=== PATIENT | female | born 1990 | race Caucasian/White ===

== ENCOUNTER → 2022-05-05 | Outpatient (CLI) | payer OTHER, BC, SELFPAY ==
[2022-05-05 22:30] LABS: Absolute Lymphocyte Count 2.04 X10^3/uL (0.83-4.51); Absolute Neutrophil Count 3.1 X10^3/uL (2.0-7.7); Basophil# 0.04 X10^3/uL; Basophil% 0.7 % (0-1); Eosinophil# 0.13 X10^3/uL; Eosinophils% 2.3 % (0-5); Hematocrit 43.2 % (37-47); Lymphocyte # 2.04 X10^3/ul (0.83-4.51); Lymphocyte % 35.7 % (19-41); Mean Corp Hgb Conc 32.4 g/dL (32-36); Mean Corpuscular Hgb 28.3 pg (27.0-32.0); Mean Corpuscular Volume 87.4 fL (81-99); Mean Platelet Vol. 10.2 fl (6.2-12.0); Monocyte# 0.43 X10^3/uL; Monocyte% 7.5 % (0-10); NRBC Flagged by Analyzer 0 % (0-5); Neutrophil # 3.05 X10^3/uL (2.7-7.7); Neutrophil % 53.4 % (47-70); Platelet Count 353 K/mm3 (150-450); RBC Distribution Width SD 41.1 fl (35.1-43.9); Red Blood Count 4.94 M/mm3 (4.2-5.4); White Blood Count 5.7 K/mm3 (4.4-11.0)
[2022-05-05 22:48] LABS: ALB/GLOB Ratio 1.1 RATIO (0.9-2.4); AST(SGOT) 15 U/L (15-37); Alanine Aminotransfer ALT/SGPT 32 U/L (13-56); Albumin, Serum 3.8 g/dL (3.2-5.0); Alkaline Phosphatase 112 U/L (45-117); Anion Gap 9 (5-15); BUN 11 mg/dL (7-18); BUN/Creat Ratio 18.2 RATIO (10-20); Calcium,Total 9.5 mg/dL (8.5-10.1); Chloride 105 mmol/L (98-107); Cholesterol 190 mg/dL (200); Creatinine, Serum 0.61 mg/dL (0.55-1.02); EST Glomerular Filtration Rate 120 mL/min (>60); Est Glom Filt Rate - Afr Amer 146 mL/min (>60); Globulin 3.6 g/dL (2.2-4.2); Glucose 84 mg/dL (74-106); High Density Lipoprotein 60 mg/dL; Potassium 4.1 mmol/L (3.5-5.1); Protein, Total 7.4 g/dL (6.4-8.2); Sodium Level 141 mmol/L (136-145); Triglycerides 97 mg/dL; Very Low Density Lipoprotein 19 mg/dL (5-40)
== END | disposition home or self-care (01) ==
PROVIDERS: Visit Provider Nurse Practitioner
DX: Z00.00 Encounter for general adult medical examination without abnormal findings (principal)
CPT/HCPCS: 80053; 80061; 85025

== ENCOUNTER → 2023-07-11 | Outpatient (CLI) | payer BC, SELFPAY ==
[2023-07-11 21:23] LABS: Absolute Lymphocyte Count 2.17 X10^3/uL (0.83-4.51); Absolute Neutrophil Count 3.3 X10^3/uL (2.0-7.7); Basophil# 0.03 X10^3/uL; Basophil% 0.5 % (0-1); Eosinophil# 0.12 X10^3/uL; Hematocrit 40.3 % (37-47); Hemoglobin 13.2 g/dL (12.0-15.0); Lymphocyte # 2.17 X10^3/ul (0.83-4.51); Lymphocyte % 35.9 % (19-41); Mean Corp Hgb Conc 32.8 g/dL (32-36); Mean Corpuscular Volume 88.6 fL (81-99); Mean Platelet Vol. 10.1 fl (6.2-12.0); Monocyte# 0.42 X10^3/uL; Monocyte% 6.9 % (0-10); NRBC Flagged by Analyzer 0 % (0-5); Neutrophil % 54.5 % (47-70); Platelet Count 378 K/mm3 (150-450); RBC Distribution Width SD 42.2 fl (35.1-43.9); Red Blood Count 4.55 M/mm3 (4.2-5.4); White Blood Count 6.1 K/mm3 (4.4-11.0)
[2023-07-11 21:37] LABS: Vitamin B12 443 pg/mL (211-911)
[2023-07-11 22:14] LABS: ALB/GLOB Ratio 1.1 RATIO (0.9-2.4); AST(SGOT) 25 U/L (15-37); Alanine Aminotransfer ALT/SGPT 39 U/L (13-56); Albumin, Serum 3.9 g/dL (3.2-5.0); Alkaline Phosphatase 89 U/L (45-117); Anion Gap 7 (5-15); BUN 11 mg/dL (7-18); BUN/Creat Ratio 17.7 RATIO (10-20); Calcium,Total 9.2 mg/dL (8.5-10.1); Chloride 105 mmol/L (98-107); Cholesterol 278 mg/dL (200); Creatinine, Serum 0.62 mg/dL (0.55-1.02); EST Glomerular Filtration Rate 116 mL/min (>60); Est Glom Filt Rate - Afr Amer 140 mL/min (>60); Ferritin 59 ng/mL (8-252); Globulin 3.6 g/dL (2.2-4.2); Glucose 94 mg/dL (74-106); High Density Lipoprotein 53 mg/dL; Iron Binding Capacity,Total 345 ug/dL (250-450); Potassium 3.4 mmol/L (3.5-5.1); Protein, Total 7.5 g/dL (6.4-8.2); Sodium Level 138 mmol/L (136-145); Thyroid Stim Hormone (TSH) 1.96 uIU/mL (0.358-3.74); Triglycerides 249 mg/dL; Very Low Density Lipoprotein 50 mg/dL (5-40)
[2023-07-14 13:08] LABS: Anti-Centromere B Ab <0.2 AI (0.0-0.9); Anti-Chromatin <0.2 AI (0.0-0.9); Anti-Jo <0.2 AI (0.0-0.9); Anti-Scleroderma-70 AB <0.2 AI (0.0-0.9); Anti-dsDNA Ab 5 IU/mL (0-9); RNP Ab 0.2 AI (0.0-0.9); SJOGREN'S Anti-SS-A test < 0.2 AI (0.0-0.9); SJOGREN'S Anti-SS-B test < 0.2 AI (0.0-0.9); Smith Ab <0.2 AI (0.0-0.9); Vitamin D 1,25-Dihydroxy 70.1 pg/mL (24.8-81.5)
[2023-08-04 14:10] LABS: VITAMIN B6 15.6 ug/L (3.4-65.2)
== END | disposition home or self-care (01) ==
PROVIDERS: PCP Nurse Practitioner; Visit Provider Nurse Practitioner
DX: R11.0 Nausea (principal); R42 Dizziness and giddiness; R41.89 Other symptoms and signs involving cognitive functions and awareness; L74.9 Eccrine sweat disorder, unspecified; R51.9 Headache, unspecified; L30.9 Dermatitis, unspecified; R19.7 Diarrhea, unspecified; L50.9 Urticaria, unspecified; O24.419 Gestational diabetes mellitus in pregnancy, unspecified control; Z3A.00 Weeks of gestation of pregnancy not specified
CPT/HCPCS: 80053; 80061; 81291; 82607; 82652; 82728; 82746; 83550; 84207; 84443; 85025; 86225; 86235

== ENCOUNTER → 2023-11-23 | Outpatient (CLI) | payer BC, SELFPAY ==
[2023-11-23 20:47] LABS: ALB/GLOB Ratio 1.1 RATIO (0.9-2.4); AST(SGOT) 20 U/L (15-37); Alanine Aminotransfer ALT/SGPT 34 U/L (13-56); Albumin, Serum 3.8 g/dL (3.2-5.0); Alkaline Phosphatase 89 U/L (45-117); Anion Gap 6 (5-15); BUN 9 mg/dL (7-18); BUN/Creat Ratio 13.2 RATIO (10-20); Calcium,Total 9.5 mg/dL (8.5-10.1); Chloride 104 mmol/L (98-107); Creatinine, Serum 0.68 mg/dL (0.55-1.02); EST Glomerular Filtration Rate 104 mL/min (>60); Est Glom Filt Rate - Afr Amer 126 mL/min (>60); Globulin 3.6 g/dL (2.2-4.2); Glucose 96 mg/dL (74-106); Potassium 3.5 mmol/L (3.5-5.1); Protein, Total 7.4 g/dL (6.4-8.2); Sodium Level 139 mmol/L (136-145)
== END | disposition home or self-care (01) ==
PROVIDERS: PCP Nurse Practitioner; Visit Provider Nurse Practitioner
DX: N20.0 Calculus of kidney (principal)
CPT/HCPCS: 80053

== ENCOUNTER → 2024-05-20 | Outpatient (CLI) | payer BC, SELFPAY | END | disposition home or self-care (01) | PROVIDERS: PCP Nurse Practitioner; Referring Provider Nurse Practitioner; Visit Provider Nurse Practitioner | DX: N30.90 Cystitis, unspecified without hematuria (principal) | CPT/HCPCS: 87077; 87086; 87088; 87186 ==

== ENCOUNTER → 2024-12-16 | Outpatient (CLI) | payer BC, SELFPAY ==
--- OUTSIDE RECORDS SUMMARY | 2024-12-16 22:22 | XMS RPT_ITS | CCD ---
Author Organization [facility] CliniSyms Care Team Providers Care Porcelain Finish Sprayer Name Role Phone Feroz Armstrong Attending Unavailable PROVIDER, UNKNOWN Referring Unavailable Ginette Amberly Primary Care Unavailable Narcisa Pierre Unavailable Unavailable CARLOS ALBERTO PACKER MD Attending Unavailable MARTY, ZANE Primary Care Unavailable OBED VILA MD Attending Unavailab le MARTY, ZANE Primary Care Unavailable MARTY, ZANE Consulting Unavailable CARLOS ALBERTO PACKER MD Attending Unavailable MARTY, ZANE Primary Care Unavailable MARTY, ZANE Primary Care Unavailable MARTY, ZANE Primary Care Unavailable CARLOS ALBERTO PACKER MD Attending Unavailable MARTY, ZANE Primary Care Unavailable CARLOS ALBERTO PACKER MD Attending Unavailable MARTY, ZANE Primary Care Unavailable OBED VILA MD Attending Unavailab le MARTY, ZANE Primary Care Unavailable MARTY, ZANE Primary Care Unavailable MARTY, ZANE Primary Care Unavailable MARTY, ZANE Primary Care Unavailable Unavailable Primary Care Provider Unavailelvis Sands MD, Demetrius Nelson Primary Care Provider [phone] Frederic GLOVE PARTS INSPECTOR.UM RN, Jenny L Unavailable MELY VIGIL Attending Unavailable BERGERON, JENNY L Referring Unavailable Bergeron ENVIRONMENTAL AUDITOR, Jenny Unavailable Unallocated MD, Noms Provider Primary Care Provi janae Bergeron ENVIRONMENTAL AUDITOR, Jenny Primary Care Unavailable Bergeron ENVIRONMENTAL AUDITOR, Jenny Referring Unavailable Bergeron ENVIRONMENTAL AUDITOR, Jenny Attending Unavailable Bergeron ENVIRONMENTAL AUDITOR, Jenny Primary Care Unavailable Bergeron ENVIRONMENTAL AUDITOR, Jenny Attending Unavailable Bergeron ENVIRONMENTAL AUDITOR, Jenny Attending Unavailable Bergeron ENVIRONMENTAL AUDITOR, Jenny Primary Care Unavailable FRIDA HOPSON Attending Unavailable FRIDA HOPSON Attending Unavailable FRIDA HOPSON Referring Unavailable JERZY HAHN Attending Unavailable JERZY HAHN Referring Unavailable WEMILTONT, DARLENE S Attending Unavailable WEYGANDT, DARLENE S Attending Unavailable FRIDA HOPSON Attending Unavailable FRIDA HOPSON Referring Unavailable WEYGANDT, DARLENE S Attending Unavailable JERZY HAHN Referring Unavailable Demetrius Sands MD Primary Care Provider DOLLY BRAVO, REG Attending Unavailabl e BERGERON, JENNY Primary Care Unavailable BERGERON, JENNY Primary Care Unavailable BERGERON, JENNY Primary Care Unavailable DOLLY BRAVO, REG Attending Unavailabl e BERGERON, JENNY Primary Care Unavailable BERGERON, JENNY Primary Care Unavailable BERGERON, JENNY Primary Care Unavailable BERGERON, JENNY Primary Care Unavailable BERGERON, JENNY Primary Care Unavailable BERGERON, JOSE Primary Care Unavailable CARLOS ALBERTO PACKER MD Attending Unavailable WEMILTONT, DARLENE S Attending Unavailable DEMETRIUS SANDS Primary Care Unavailable WEYGANDT, DARLENE S Referring Unavailable WEMILTONT, DARLENE S Attending Unavailable DEMETRIUS SANDS Primary Care Unavailable Allergies Allergy Classification Reported Allergen(s) Allergy Type Date of Onset Reaction(s) Facility (4 sources) Latex; Translations: [LATEX] Propensity to adverse reactions to drug 2 Rash [facility] (1 source) Propensity to adverse reactions to drug 8 [facility] (1 source) Latex Drug allergy (disorder) 4 [facility] Repository (1 source) Wound Dressing Adhesive Drug Allergy 5 [facility] (1 source) ALLERGIES NOT ON FILE; Translations: [ALLERGIES NOT ON FILE] Propensity to adverse reactions (disorder) [facility] 3 Repository Medications Current Medications Medication Drug Class(es) Dates Sig (Normalized) Sig (Original) acetaminophen 325 mg / oxyCODONE hydrochloride 5 mg oral tablet (1 source) Opioid Agonist Start: 2 take 1 tablet by mouth every four hours as needed oxyCODONE-acetaminoph en 5-325 mg tablet Take 1 tablet by mouth every 4 hours as needed for Pain. 20 tablet 0 12/22/2011 Active amitriptyline hydrochloride 25 mg oral tablet (1 source) Tricyclic Antidepressant Start: 4 take 25 mg by mouth at bedtime Amitriptyline Active 25 MG PO AT BEDTIME May 03, 2023 1:00am ascorbic acid 500 mg oral tablet (1 source) Vitamin C Start: 8 [id number] Medication ascorbic acid (vitamin C) 500 mg tablet Vitamin C 500 mg 08/29/2017 Active (Outside) onabotulinumtoxina 100 unt injection (10 sources) Acetylcholine Release Inhibitor Start: End: onabotulinumtoxinA (Botox) injection 155 Units Start: 11-28-2024 End: 11-28-2024 inject 155 [IU] by intramuscular injection once 155 Units, intramuscular, Once, On Angelia 11/28/24 at 1345, For 1 dose Start: 08-29-2024 End: 08-29-2024 onabotulinumtoxinA (Botox) i njection 155 Units Start: 08-29-2024 End: 08-29-2024 inject 155 [IU] by intramuscular injection once 155 Units, Intramuscular, Once, On Angelia 08/29/24 at 1115, For 1 dose, Charging context for this clinic-administered medication: Medically Necessary/Insurance Start: 05-30-2024 End: 05-30-2024 onabotulinumtoxinA (Botox) i njection 155 Units Start: 05-30-2024 End: 05-30-2024 inject 155 [IU] by intramuscular injection once 155 Units, Intramuscular, Once, On Angelia 05/30/24 at 1015, For 1 dose, Charging context for this clinic-administered medication: Medically Necessary/Insurance Start: 02-29-2024 End: 02-29-2024 onabotulinumtoxinA (Botox) i njection 155 Units Start: 02-29-2024 End: 02-29-2024 inject 155 [IU] by intramuscular injection once 155 Units, Intramuscular, Once, On Angelia 02/29/24 at 0945, For 1 dose, Charging context for this clinic-administered medication: Medically Necessary/Insurance Start: 06-06-2023 End: 06-06-2023 onabotulinumtoxinA (Botox) i njection 155 Units Start: 06-06-2023 End: 06-06-2023 onabotulinumtoxinA (Botox) i njection 155 Units 12 hr buPROPion hydrochloride 200 mg extended release oral tablet (1 source) Aminoketone take 1 tablet by mouth twice daily buPROPion HCL (WELLBUTRIN SR) 200 mg 12 hr tablet Take 200 mg by mouth twice daily. 0 Active busPIRone hydrochloride 10 mg oral tablet (1 source) take 1 tablet by mouth three times daily busPIRone 10 mg tablet Take 10 mg by mouth three times daily. 0 Active cetirizine hydrochloride 5 mg oral tablet (10 sources) Histamine-1 Receptor Antagonist take 2 tablets by mouth once daily cetirizine (ZyrTEC) 5 MG tablet Take 10 mg by mouth Daily Active clonazePAM 1 mg oral tablet (16 sources) Benzodiazepine Start: 05-03-19 take 1 mg by mouth 30 minutes before bedtime Clonazepam Active 1 MG PO AT BEDTIME May 03, 2023 1:00am administer 30 minutes before bedtime Start: 08-29-2017 [id number] Medicat ion clonazepam 0.5 mg tablet Klonopin 0.5 mg 10/03/2017 Active (Outside) clonazePAM (Klon oPIN) 0.5 MG tablet Take 1 mg by mouth as needed at bedtime. 1 to 2 mg PRN Active 2 ml dicyclomine hydrochloride 10 mg/ml injection (1 source) Anticholinergic Start: 08-29-2017 [id number] Medication dicyclomine 10 mg/mL intramuscular solution Bentyl 10 mg/mL 08/29/2017 Active (Outside) FLUoxetine 20 mg oral capsule (18 sources) Serotonin Reuptake Inhibitor Start: 07-12-2023 take 60 mg by mouth once daily Fluoxetine Active 60 MG PO DAILY July 12, 2023 8:02am Start: 05-03-2023 End: 07-12-2023 take 40 mg by mouth once daily Fluoxetine Discontinued 40 MG PO DAILY May 03, 2023 5:38pm July 12, 2023 8:03am Start: 11-07-2022 End: 05-16-2024 FLUoxetine (PROzac Weekly) [address] capsule Take 90 mg by mouth every 7 (seven) days. 11/07/2022 05/16/2024 Discontinued (Therapy completed) Start: 05-05-2022 End: 05-03-2023 take 20 mg by mouth once daily Fluoxetine Discontinued 20 MG PO DAILY May 05, 2022 1:00am May 03, 2023 5:38pm End: 05-16-2024 take 2 capsules by mouth every week in the morning FLUoxetine (PROzac) 20 MG capsule Take 40 mg by mouth in the morning. Taking weekly dose. 05/16/2024 Discontinued (Therapy completed) fluticasone propionate 0.05 mg/actuat metered dose nasal spray (1 source) Corticosteroid Start: 04-22-2021 take 1 spray(s) nasal route twice daily fluticasone (FLONASE ALLERGY RELIEF) 50 mcg/actuation nasal spray Indications: Eustachian tube dysfunction, bilateral Use 1 [place] in each nostril twice daily. 1 Each 0 04/22/2021 Active folic acid 1 mg oral tablet (1 source) Start: 09-15-2020 folic acid 1 mg tablet 1 mg. 0 09/15/2020 Active folic acid 2.5 mg / vitamin b12 2 mg / vitamin b6 25 mg oral tablet (2 sources) Vitamin B12 take 1 tablet by mouth once daily folic acid-vit B6-vit B12 (WesTab Max) 2.5-25-2 mg tablet Take 1 tablet by mouth once daily. Active hydroCHLOROthiazide 12.5 mg oral tablet (15 sources) Thiazide Diuretic Start: 05-03-2023 take 12.5 mg by mouth once daily Hydrochlorothiazide Active 12.5 MG PO DAILY May 03, 2023 1:00am Start: 12-20-2022 take 1 tablet by alli th in the morning hydroCHLOROthiazide (HYDRODiuril) 25 MG tablet Take 25 mg by mouth in the morning. 12/20/2022 Active Start: 10-03-2017 [id number] Medicat ion hydrochlorothiazide hydrochlorothiazide 50 mg 10/03/2017 Active (Outside) ketorolac tromethamine 10 mg oral tablet (1 source) Nonsteroidal Anti-inflammatory Drug, Cyclooxygenase Inhibitor Start: 12-22-2011 take 1 tablet by mouth every six hours as needed ketorolac 10 mg tablet Take 1 tablet by mouth every 6 hours as needed for Pain. TAKE FOR NO MORE THAN 5 DAYS 20 tablet 0 12/22/2011 Active lamoTRIgine 5 mg chewable tablet (7 sources) Mood Stabilizer, Anti-epileptic Agent Start: 08-29-201720110701 Medication lamotrigine 5 mg chewable dispersible tablet Lamictal 5 mg 08/29/2017 Active (Outside) LaMICtal 100 MG tablet Active levonorgestrel 0.668030 mg/hr intrauterine system (2 sources) Progestin, Progestin-containing Intrauterine Device Start: 05-05-2022 Levonorgestrel (Kyleena) 17.5 mcg/24 hrs (5 yrs) 19.5 mg intrauterine device Active 1 DEVICE INTRA-UTER ONCE May 05, 2022 1:00am as a single dose linaclotide 0.145 mg oral capsule (13 sources) Guanylate Cyclase-C Agonist Start: 05-23-2023 take 1 capsule by mouth in the morning Linzess 290 MCG capsule Take 290 mcg by mouth in the morning. 0 05/23/2023 Active Start: 05-03-2023 take 1 capsule by mo uth once daily linaCLOtide (Linzess) 145 MCG capsule Take 145 mcg by mouth Daily 05/23/2023 Active Start: 08-29-2017 [id number] Medica tion linaclotide 145 mcg capsule Linzess 145 mcg 08/29/2017 Active (Outside) metoclopramide 10 mg oral tablet (1 source) Dopamine-2 Receptor Antagonist Start: 02-01-2021 metoclopramide HCl (REGLAN) 10 mg tablet montelukast 10 mg oral tablet (1 source) Leukotriene Receptor Antagonist Start: 02-10-2019 montelukast (SINGULAIR) 10 mg tablet 10 mg. 0 02/10/2019 Active Multiple Vitamin (Multi Vitamin) tablet (11 sources) take 1 tablet by mouth once daily Multiple Vitamin (Multi Vitamin) tablet 1 tablet Orally Once a day Active take 1 tablet by mouth once marlin y Multiple Vitamin (Multi Vitamin) tablet 1 tablet Orally Once a day 0 Active omeprazole 20 mg delayed release oral capsule (13 sources) Proton Pump Inhibitor Start: 11-09-2022 take 1 capsule by mouth before mealtime omeprazole (PriLOSEC) [address] capsule Take 20 mg by mouth in the morning. Take before meals. 11/09/2022 Active take 1 tablet by alli once daily before mealtime omeprazole OTC (PriLOSEC OTC) 20 mg EC tablet Take 1 tablet (20 mg) by mouth once daily in the morning. Take before meals. Do not crush, chew, or split. Active vit no.180/iron/folic ( PLUS VITAMIN-MINERAL ORAL) (2 sources) vit no.180/iron/folic ( PLUS VITAMIN-MINERAL ORAL) Take by mouth. Active promethazine hydrochloride 25 mg oral tablet (1 source) Phenothiazine Start: 12-22-19 12 take 1 tablet by mouth every four hours as needed promethazine 25 mg tablet Take 1 tablet by mouth every 4 hours as needed for Nausea/Vomiting. 8 tablet 0 12/22/2011 Active prucalopride 2 mg oral tablet (2 sources) take 1 tablet by mouth once daily prucalopride (Motegrity) 2 mg tablet Take 1 tablet (2 mg) by mouth once daily. Active triamcinolone acetonide 1 mg/ml topical cream (4 sources) Corticosteroid Start: 08-25-19 triamcinolone (Kenalog) 0.1 % cream Indications: Eczema, unspecified type Apply topically 2 times a day as needed for rash. 80 g 1 08/25/2023 Active Start: 01-13-2021 [id number] Medica tion triamcinolone acetonide 0.1 % topical cream triamcinolone acetonide 0.1 % topical cream 0.1 % 1 Application to affected area twice a day 01/13/2021 Active (Current) ubrogepant 100 mg oral tablet (4 sources) Start: 08-14-2024 End: 09-13-2024 take 1 tablet by mouth every two hours, then take 2 tablets by mouth every twenty-four hours Ubrogepant (Ubrelvy) 100 MG tablet Indications: Intractable chronic migraine without aura and without status migrainosus (CMS/HCC) Take 1 tablet by mouth if needed (May repeat in 2 hours. Max of 2 tablets in 24 hours.) 10 tablet 5 08/14/2024 09/13/2024 Active Completed/Discontinued Medications Medication Drug Class(es) Dates Sig (Normalized) Sig (Original) adapalene 0.003 mg/mg topical gel (5 sources) Retinoid Start: 01-14-2020 [id number] Medication adapalene 0.3 % topical gel adapalene 0.3 % topical gel 0.3 % 1 Application as directed daily 01/14/2020 Prior History No Longer Active Start: 10-03-2017 [id number] Medicat ion adapalene 0.3 % topical gel adapalene 0.3 % topical gel 0.3 % 02/17/2018 Active (Outside) amoxicillin 875 mg / clavulanate 125 mg oral tablet (1 source) Penicillin-class Antibacterial Start: 05-03-2023 End: 07-11-2023 take 1 tablet by mouth twice daily Amoxicillin-Pot Clavulanate Discontinued 1 TABLET PO TWICE A DAY May 03, 2023 1:00am July 11, 2023 8:04pm 24 hr amphetamine aspartate 3.75 mg / amphetamine sulfate 3.75 mg / dextroamphetamine saccharate 3.75 mg / dextroamphetamine sulfate 3.75 mg extended release oral capsule (9 sources) Central Nervous System Stimulant Start: 05-24-2023 End: 05-16-2024 take 1 capsule by mouth once daily as needed, then take 1 capsule by mouth every twenty-four hours as needed amphetamine-dextroa mphetamine XR (Adderall XR) 15 MG 24 hr capsule Take 15 mg by mouth Daily as needed 05/24/2023 05/16/2024 Discontinued (Therapy completed) Start: 05-03-2023 End: 07-12-2023 take 1 tablet by mouth every four to six hours Dextroamphetamine-Amphetamine (Adderall) 20 mg tablet Active 20 MG PO TWICE A DAY July 12, 2023 8:02am administer doses at least 4-6 hours apart ARIPiprazole 5 mg oral tablet (7 sources) Atypical Antipsychotic Start: 03-05-2023 End: 05-16-2024 ARIPiprazole (Abilify) 5 MG tablet 03/05/2023 05/16/2024 Discontinued (Therapy completed) azelaic acid 0.15 mg/mg topical gel (1 source) Start: 01-14-2020 [id number] Medication azelaic acid 15 % topical gel azelaic acid 15 % topical gel 15 % 1 Application topically twice a day 01/14/2020 Prior History No Longer Active benzoyl peroxide 60 mg/ml medicated pad (2 sources) Start: 10-03-2017 [id number] Medication benzoyl peroxide 6 % cloth BPO 6 % towelette 6 % 1 Application topically daily 10/30/2018 Prior History No Longer Active benzoyl peroxide 0.05 mg/mg / clindamycin 0.01 mg/mg topical gel (1 source) Lincosamide Antibacterial Start: 01-14-2020 014717 Medication clindamycin 1.2 % (1 % base)-benzoyl peroxide 5 % topical gel clindamycin 1.2 % (1 % base)-benzoyl peroxide 5 % topical gel 1.2 %(1 % base) -5 % 1 Application by mouth daily 01/14/2020 Prior History No Longer Active cholecalciferol 0.25 mg oral tablet (2 sources) Vitamin D Start: 05-05-2022 End: 05-03-2023 take 250 ug by mouth every week Cholecalciferol (Vitamin D3) Discontinued 250 MCG PO EVERY WEEK May 05, 2022 1:00am May 03, 2023 5:38pm clindamycin 10 mg/ml topical lotion (1 source) Lincosamide Antibacterial Start: 07-24-2018 032865 Medication clindamycin 1 % lotion clindamycin 1 % lotion 1 % 1 Applicator topically daily 07/24/2018 Prior History No Longer Active clobetasol propionate 0.0005 mg/mg topical ointment (1 source) Corticosteroid Start: 08-29-2017 [id number] Medication clobetasol 0.05 % topical ointment clobetasol 0.05 % topical ointment 0.05 % 1 Application topically twice a day 08/29/2017 Prior History No Longer Active 24 hr minocycline 90 mg extended release oral tablet (2 sources) Tetracycline-class Drug Start: 10-03-2017 take 1 tablet by mouth once daily [id number] Medication minocycline ER 90 mg tablet,extended release 24 hr minocycline ER 90 mg tablet,extended release 24 hr 90 mg 1 Application by mouth daily 11/22/2017 Prior History No Longer Active Multivitamin preparation (2 sources) Start: 05-05-2022 End: 05-03-2023 take 1 tablet by mouth once daily Multivitamin Discontinued 1 TABLET PO DAILY May 05, 2022 1:00am May 03, 2023 5:39pm Start: 05-05-2022 take 1 tablet [facility] daily Multivitamin Active 1 TABLET PO DAILY May 05, 2022 12:00am ondansetron 4 mg disintegrating oral tablet (1 source) Serotonin-3 Receptor Antagonist Start: 08-29-2017 [id number] Medication ondansetron 4 mg disintegrating tablet Zofran ODT 4 mg 08/29/2017 Discontinued predniSONE 20 mg oral tablet (2 sources) Start: 05-03-2023 End: 07-12-2023 take 40 mg by mouth once daily Prednisone Discontinued 40 MG PO DAILY May 03, 2023 1:00am July 12, 2023 8:02am Start: 01-14-2020 take 1 tablet by alli th once daily [id number] Medication prednisone 20 mg tablet prednisone 20 mg tablet 20 mg 1 Tablet by mouth daily 01/14/2020 Prior History No Longer Active spironolactone 100 mg oral tablet (1 source) Aldosterone Antagonist Start: 08-29-201719810526 Medication spironolactone spironolactone 100 mg 08/29/2017 Discontinued Problems Active Problems Problem Classification Problem Date Documented Da te Episodic/Chronic Allergic reactions (13 sources) Allergic urticaria; Translations: [Latex allergy status] Onset: 9 07-11-2023 Episodic Anxiety disorders (4 sources) Anxiety disorder, unspecified; Translations: [Anxiety] Onset: 9 05-03-2023 Chronic Biliary tract disease (1 source) Disorder of gallbladder; Translations: [Disease of gallbladder, unspecified] Onset: 5 08-29-2024 Episodic Conditions associated with dizziness or vertigo (1 source) Dizziness; Translations: [Dizziness and giddiness] 07-11-2023 Episodic Diabetes or abnormal glucose tolerance complicating ; childbirth; or the puerperium (1 source) Gestational diabetes mellitus; Translations: [Gestational diabetes mellitus in , unspecified control] 07-11-2023 Episodic Esophageal disorders (1 source) Gastroesophageal reflux disease; Translations: [Gastro-esophageal reflux disease without esophagitis] Onset: 5 08-29-2024 Chronic Headache; including migraine (20 sources) Chronic intractable migraine without aura; Translations: [Chronic migraine without aura, intractable, without status migrainosus] Onset: 3 06-06-2023 Chronic Headache; including migraine (1 source) Frequent headache; Translations: [Frequent headaches] 07-11-2023 Episodic Mood disorders (2 sources) Premenstrual dysphoric disorder; Translations: [Premenstrual dysphoric disorder] Onset: 5 05-03-2023 Chronic Mood disorders (2 sources) Major depressive disorder, single episode, unspecified; Translations: [Major depressive disorder, single episode, unspecified] Onset: 9 Other and unspecified benign neoplasm (2 sources) Hemangioma of skin and subcutaneous tissue Onset: 8 Episodic Other and unspecified benign neoplasm (2 sources) Other benign neoplasm of skin of trunk Onset: 9 Episodic Other and unspecified benign neoplasm (1 source) Benign neoplasm of soft tissue; Translations: [Melanocytic nevi, unspecified] 08-25-2023 Episodic Other and unspecified benign neoplasm (1 source) Dermatofibroma; Translations: [Other benign neoplasm of skin, unspecified] 08-25-2023 Episodic Other gastrointestinal disorders (1 source) Diarrhea; Translations: [Diarrhea, unspecified] 07-12-2023 Episodic Other hereditary and degenerative nervous system conditions (1 source) Serotonin syndrome; 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] 07-12-2023 Chronic Other hereditary and degenerative nervous system conditions (2 sources) Orofacial dyskinesia; 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] 05-16-2024 Chronic Other nervous system disorders (1 source) Impaired cognition; Translations: [Other symptoms and signs involving cognitive functions and awareness] 07-11-2023 Episodic Other nutritional; endocrine; and metabolic disorders (1 source) Obese class I; Translations: [Obesity, unspecified] 12-08-2023 Chronic Other screening for suspected conditions (not mental disorders or infectious disease) (2 sources) Patient encounter status; Translations: [Encounter for screening for malignant neoplasm of skin] 08-25-2023 Episodic Other skin disorders (3 sources) Dyshidrosis [pompholyx] Onset: 8 Episodic Other skin disorders (8 sources) Acne vulgaris Onset: 8 Episodic Other skin disorders (2 sources) Other hypertrophic disorders of the skin Onset: 0 Episodic Other skin disorders (1 source) Disorder of sweat gland; Translations: [Eccrine sweat disorder, unspecified] 07-11-2023 Episodic Other skin disorders (1 source) Skin tag; Translations: [Other hypertrophic disorders of the skin] 08-25-2023 Episodic Other upper respiratory infections (1 source) Acute maxillary sinusitis; Translations: [Acute maxillary sinusitis, unspecified] 05-06-2023 Episodic Otitis media and related conditions (1 source) Otitis media of left ear; Translations: [Otitis media, unspecified, left ear] 05-06-2023 Episodic Residual codes; unclassified (2 sources) Acquired absence of other specified parts of digestive tract; Translations: [Acquired absence of other specified parts of digestive tract] Onset: 9 Episodic Skin and subcutaneous tissue infections (2 sources) Cutaneous abscess of left lower limb Onset: 1 Episodic Spondylosis; intervertebral disc disorders; other back problems (2 sources) Neck pain; Translations: [Cervicalgia] 05-16-2024 Episodic Urinary tract infections (1 source) Cystitis, unspecified without hematuria; Translations: [Cystitis, unspecified without hematuria] Onset: 5 Episodic Past or Other Problems Problem Classification Problem Date Documented Da te Episodic/Chronic Calculus of urinary tract (3 sources) Personal history of urinary calculi; Translations: [Calculus of kidney] Onset: 08-12-2018 Episodic Nausea and vomiting (5 sources) Vomiting; Translations: [Vomiting, unspecified] Onset: 07-17-2023 07-11-2023 Episodic Unclassified (2 sources) Onset: 10-17-2024 Resolved: 11-28-2024 10-17-2024 Results Test Name Value Interpretation Reference Range Facility Botulinum Injection - Head/F marcello/Jawon 11-28-2024 KAMI Blankenship 11/28/2024 1:32 PM Botulinum Injection - Head/Face/Jaw Date/Time: 11/28/2024 1:28 PM Performed by: KAMI Blankenship Authorized by: KAMI Blankenship Consent: Consent obtained: Verbal (Verified patient has not received Botox from any other healthcare provider or aquaculturist in the past 90 days.) Consent given by: Patient Procedural risks discussed: Risks of PREEMPT Botox include injection site reaction, pain at the injection site, ptosis (drooping eyelid). Alternatives discussed: No treatment [place] protocol: Relevant documents present and verified: Yes Site/side verified: Yes Immediately prior to procedure a time out was called: Yes Patient identity confirmed: Verbally with patient Procedure details: EMG used? No Electrical stimulation used? No Diluted by: Preservative free saline Total units available: 200 Right frontalis: 10 units divided amongst 2 site(s) Left frontalis: 10 units divided amongst 2 site(s) Right dietitian teaching: 5 units divided amongst 1 site(s) Left dietitian teaching: 5 units divided amongst 1 site(s) Procerus (midline): 5 units divided amongst 1 site(s) Right occipitalis: 15 units divided amongst 3 site(s) Left occipitalis: 15 units divided amongst 3 site(s) Right cervical paraspinal: 10 units divided amongst 2 site(s) Left cervical paraspinal: 10 units divided amongst 2 site(s) Right trapezius: 15 units divided amongst 3 site(s) Left trapezius: 15 units divided amongst 3 site(s) Right temporalis: 20 units divided amongst 4 site(s) Left temporalis: 20 units divided amongst 4 site(s) Total units injected: 155 Total units wasted: 45 Post-procedure details: Patient tolerance of procedure: Tolerated well, no immediate complications Comments: You had Botox injections for migraine prevention today: Please do not rub injection sites for 24 hours. Avoid pressure above eyebrows for 24 hours, including massage; use of helmets, headlamps, headbands, or goggles. If there is discomfort, ice for 20 minutes at a time for the first 24 hours. After 24 hours, you many use heat for discomfort (please limit to 15-20 minutes). Headaches may worsen, or you may experience neck stiffness. If this occurs use your usual headache medication or a mild anti inflammatory such as Advil or Aleve. Please call if you have difficulty swallowing. [facility] Work Phone: [facility] Work Phone: AMB GI Physician Progress No merry 11-14-2024 AMB GI Physician Progress Note DAXA ALVARADO :1990 [facility]:[phone] Registration Date:11/14/2024 Chief Complaint Constipation History of Present Illness 34-year-old female seen in follow-up regarding her constipation and GERD. She was seen in April. She did call with increasing constipation despite Linzess 145 mcg. Linzess 290 was too strong. She was treated with Trulance that gave her diarrhea, Amitiza that she could not tolerate due to symptoms, finally Motegrity which also gave diarrhea. Currently back on Linzess 145 mcg. Rarely will take MiraLAX. She did have a normal colonoscopy in October 2022. Due for follow-up examination in October 2027 due to her family history of colon cancer in her mother. She also remains on omeprazole 20 mg daily for her reflux. Despite this about 3 days a week she needs additional Tums. There is no current nausea, vomiting or weight loss. EGD done at time of colonoscopy in October 2022 did show gastritis, negative H. pylori. She has a prior history of gallbladder surgery done due to gallbladder dysfunction/abnormal HIDA scan with ejection fraction. She has plans for becoming later this year. Has been seen by [employer]. Review of Systems General: Denies weight loss, difficulty sleeping Skin: Denies rash/jaundice HEENT: Denies throat clearing, neck swelling Pulmonary: Denies cough or shortness of breath Cardiac: Denies chest pain, palpitations GI: See HPI Urology: Denies dysuria or blood in urine Ext: Denies edema Neurology: Denies weakness or numbness Physical Exam Vitals & Measurements Systolic Blood Pressure: 107 mmHg (11/14/24 10:59:00) Diastolic Blood Pressure: 76 mmHg (11/14/24 10:59:00) Peripheral Pulse Rate: 73 bpm (11/14/24 10:59:00) Mean Arterial Pressure: 86 mmHg (11/14/24 10:59:00) Height/Length Measured: 160 cm (11/14/24 10:59:00) Weight Measured: 69 kg (11/14/24 10:59:00) Body Mass Index Measured: 26.95 kg/m2 (11/14/24 10:59:00) Weight Measured - lbs2: 152 lb (11/14/24 10:59:00) Height/Length Measured - in2: 63 in (11/14/24 10:59:00) Body Mass Index Measured English2: 26.92 kg/m2 (11/14/24 10:59:00) BSA: 1.75 m2 (11/14/24 10:59:00) Ht/Wt Measurement Refused by Patient?2: No (11/14/24 10:59:00) Depression Screening Scores Initial Depression Screen Score: 0 (11/14/24 10:59:00) Fall Risk Assessment Is the patient ambulatory (mobile): Yes (11/14/24 10:59:00) Have you had a fall within the past: No (11/14/24 10:59:00) Have you had 2 or more falls in the past: No (11/14/24 10:59:00) VS reviewed as documented above General: No apparent distress, alert and conversant Skin: No rash or jaundice HEENT: No oral lesions, tongue midline ABD: Soft, nontender, nondistended, normoactive bowel sounds Neuro: AAO x 3, no focal weakness or numbness Medication Reconciliation What How Much When Why Instructions Changed omeprazole (omeprazole 20 mg oral delayed release capsule) 1 Capsules Oral DAILY Changed omeprazole (omeprazole 40 mg oral delayed release capsule) 1 Capsules Oral DAILY GERD (gastroesophageal reflux disease) Pickup at [facility]/pharmacy #[id number] Unchanged cetirizine (ZyrTEC 10 mg oral tablet) Oral DAILY Unchanged clonazePAM (KlonoPIN) See instructions ORAL TID, As needed for Anxiety Unchanged folic acid (folic acid 1 mg oral tablet) 1 Tabs Oral FIVE TIMES A DAY Unchanged hydrochlorothiazide = HydroDIURIL (hydroCHLOROthiazide 25 mg oral tablet) 1 Tabs Duration: 30 Days TAKE 1 TABLET BY MOUTH EVERY DAY IN THE MORNING Unchanged lamoTRIgine (LaMICtal) Oral TWICE A DAY Unchanged linaclotide (Linzess 145 mcg oral capsule) 1 Capsules Oral DAILY Unchanged linaclotide (Linzess 145 mcg oral capsule) 1 Capsules Oral DAILY Unchanged lubiprostone (Amitiza 24 mcg oral capsule) 1 Capsules Oral TWICE A DAY Unchanged multivitamin (WesTab Max oral tablet) 1 Tabs Oral TWICE A DAY Unchanged multivitamin, ( Multivitamins with Folic Acid 5 mg oral kit) See instructions 1 tab Unchanged omega-3 polyunsaturated fatty acids ( DHA 200 mg oral capsule) 1 Capsules Oral DAILY Unchanged ondansetron (ondansetron 4 mg oral tablet, disintegrating = Zofran) 1 Tabs Oral DAILY Unchanged plecanatide (Trulance 3 mg oral tablet) 1 Tabs Oral DAILY Unchanged prucalopride (Motegrity 2 mg oral tablet) 1 Tabs Oral DAILY Pharmacy Information [facility]/pharmacy #[id number]: [address] [place], [place] [phone] Assessment/Plan This Visit Diagnosis 1. Constipation K59.00 Currently back on Linzess 145 and although bowel pattern is irregular this seems to work best for her. Will continue current dosing. She is aware when she is trying to become /becomes will transition back to MiraLAX. Ordered: [facility] Office/Outpt Est Pt Mod MDM / 30 min [id number], 11/14/2024 11:03:00 EDT, Constipation / GERD (gastroesophageal reflux disease) 2. GERD (gastroesophageal reflux disease) K21.9 Has had some increased symptoms of GERD and marilia (more content not included)... Normal [facility] Provider Letter - Ambulatory on 11-14-2024 Provider Letter - Ambulatory JENNY BERGERON, [address] [facility] [address] [place] [address] RE: DAXA ALVARADO 11/14/2024 Dear JENNY BERGERON This document is confidential and intended solely for the use of the individual or entity to which they are addressed. If you are not the named addressee, please disregard and do not disseminate, distribute or copy this information. If you are not the intended recipient you are notified that any disclosure of this information and its contents are strictly prohibited. Tami DANIEL The following document(s) were included in the letter: November 14, 2024 10:46:00 EDT - (11/14/2024) *.[facility] Office Visit Note Normal [facility] Physician Progress No merry 10-03-2024 [facility] Physician Progress Note DAXA ALVARADO :1990 Registration Date:10/03/2024 Assessment/Plan Patient is a 34-year-old female with a history of gestational diabetes presenting today for preconception counseling. Preconception counseling - Patient is planning to conceive and is currently on Lamictal, which will be weaned off starting Monday. - Discussed the importance of folic acid supplementation to prevent neural tube defects and cleft palate. - Recommended starting a higher dose of folic acid (4-5 mg) for at least three months before conception. - Ordered prescription for higher dose folic acid to be sent to the pharmacy. - Advised to start taking vitamins. Advanced maternal age - Discussed increased risks associated with advanced maternal age, including miscarriage, anovulatory cycles, genetic mutations, hypertension, and gestational diabetes. - Recommended staying healthy with physical activity and exercise. - Advised to monitor for ovulation Gestational diabetes - Patient has a history of gestational diabetes, increasing the risk of recurrence in future pregnancies. - Advised to maintain a healthy lifestyle and monitor blood glucose levels during . Medication Reconciliation What How Much When Instructions New multivitamin, ( Multivitamins with Folic Acid 5 mg oral kit) See instructions Refills: 3 1 tab Pickup at [facility]/pharmacy #[id number] Unchanged cetirizine (ZyrTEC 10 mg oral tablet) Oral DAILY Unchanged clonazePAM (KlonoPIN) See instructions ORAL TID, As needed for Anxiety Unchanged hydrochlorothiazide = HydroDIURIL (hydroCHLOROthiazide 25 mg oral tablet) 1 Tabs Duration: 30 Days TAKE 1 TABLET BY MOUTH EVERY DAY IN THE MORNING Unchanged lamoTRIgine (LaMICtal) Oral TWICE A DAY Unchanged linaclotide (Linzess 145 mcg oral capsule) 1 Capsules Oral DAILY Unchanged linaclotide (Linzess 145 mcg oral capsule) 1 Capsules Oral DAILY Unchanged lubiprostone (Amitiza 24 mcg oral capsule) 1 Capsules Oral TWICE A DAY Unchanged omeprazole (omeprazole 20 mg oral delayed release capsule) 1 Capsules Oral DAILY Unchanged ondansetron (ondansetron 4 mg oral tablet, disintegrating = Zofran) 1 Tabs Oral DAILY Unchanged plecanatide (Trulance 3 mg oral tablet) 1 Tabs Oral DAILY Unchanged prucalopride (Motegrity 2 mg oral tablet) 1 Tabs Oral DAILY Pharmacy Information [facility]/pharmacy #[id number]: [address], [place] [phone] Chief Complaint Here for IUD removal. Pt is planning . Will wean off Lamictal next week. History of Present Illness Disclaimer: The content of this note was generated by an artificial intelligence (AI) language model version 25.03.1.0 The patient is a 34-year-old female with a history of gestational diabetes, presenting for IUD removal and planning. IUD removal The patient is scheduled for IUD removal. planning and medication management The patient is planning to start trying for in November. She is aware of the increased risks associated with at her age, including miscarriage, anovulatory cycles, genetic mutations, hypertension, and gestational diabetes. The patient is currently on Lamictal and plans to start weaning off the medication on Monday, a process expected to take two weeks. Gestational diabetes history The patient had gestational diabetes during her previous and is aware that the risk of recurrence is higher. Physical Exam Vitals & Measurements BP: 126/70 HT: 160 cm WT: 72 kg BMI: 28.13 Depression Screening Scores Initial Depression Screen Score: 0 (10/03/24 10:20:00) Fall Risk Assessment Is the patient ambulatory (mobile): Yes (10/03/24 10:20:00) Have you had a fall within the past: No (10/03/24 10:20:00) Have you had 2 or more falls in the past: No (10/03/24 10:20:00) OB History History (1,0,1,1) # 1 Baby 1 Outcome Date: 06/17/2020 Outcome or Result: Spontaneous with D&C Gest Age: -- Outcome: Demise Sex: -- # 2 Baby 1 Outcome Date: 09/07/2021 Outcome or Result: Vaginal Gest Age: 39 weeks 1 days Outcome: Live Sex: Female Complications: None Anesthesia Type: Epidural Andrea Labor: 2 hr Problem List/Past Medical History Ongoing Diabetes, gestational Gallbladder disease GERD (gastroesophageal reflux disease) Migraine Historical Kidney stones Procedure/Surgical History esophagogastroduodenoscopy( EGD).: 11/03/22: OBED VILA MD Colonoscopy.: 11/03/22: OBED VILA MD Suction dilation and curettage.: 06/17/20: CARLOS ALBERTO PACKER MD Insertion of intrauterine device (IUD): 03/29/19 esophagogastroduodenoscopy( EGD).: 05/28/18: OBED VILA MD Colonoscopy.: 09/23/15: OBED VILA MD Cholecystectomy;: 2013 Tonsillectomy: 05/25/11 Kidney Stones (more content not included)... Normal [facility] Urine Cultureon 05-22-2024 [facility] Escherichia coli Mchenry Count 11,000-25,000 Escherichia coli: REACTION Ampicillin Islt YAKOV >=32 Ampicillin+Sulbac Islt YAKOV >=32 R Cefepime Islt YAKOV <=0.12 S cefTRIAXone Islt YAKOV <=0.25 S Ciprofloxacin Islt YAKOV 0.5 I B-Lactamase Extended Susc Islt NEG Gentamicin Islt YAKOV <=1 S levoFLOXacin Islt YAKOV 1 I Meropenem Islt YAKOV <=0.25 S Nitrofurantoin Islt YAKOV 32 S Pip+Tazo Islt YAKOV <=4 S TMP SMX Islt YAKOV <=20 S Normal [facility] Comment on above: Performed By: #### M [id number] #### [facility] [address] [place], [address] AMB GI Physician Progress No merry 05-14-2024 AMB GI Physician Progress Note DAXA ALVARADO :1990 Registration Date:05/09/2024 Chief Complaint yealry f/u History of Present Illness 34-year-old female seen in follow-up regarding her constipation and GERD. She was seen in October 2022 for both colonoscopy and upper endoscopy. She was last seen in the office with me in April 2023. Since her last visit she has been maintained on Linzess 145 mcg. She does have a bowel movement most days when she takes 145. If she skips a day the next day she will take 290 mcg but then will generally have a watery stool. This occurs about once a week. She had tried 290 mcg daily for a while but felt that was too strong. She did have a normal colonoscopy in October 2022. Due for follow-up examination in October 2027 due to her family history of colon cancer in her mother. She also remains on omeprazole 20 mg daily for her reflux. She tried to taper off of it in the past, but felt better on daily therapy. She has had issues with nausea since mid March. 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 She had nausea for a week or 2 then a significant GI illness with nausea, vomiting and diarrhea. Since that time her diarrhea has resolved but she still has daily nausea. She has had noqi-bud-vkfefei test that was negative. Rarely she has vomiting. There is no abdominal pain or true reflux. There is no dysphagia, anorexia, abdominal pain or weight loss. EGD done at time of colonoscopy in October 2022 did show gastritis, negative H. pylori. She has a prior history of gallbladder surgery done due to gallbladder dysfunction/abnormal HIDA scan with ejection fraction. Review of Systems General: Denies weight loss, difficulty sleeping Skin: Denies rash/jaundice HEENT: Denies throat clearing, neck swelling Pulmonary: Denies cough or shortness of breath Cardiac: Denies chest pain, palpitations GI: See HPI Urology: Denies dysuria or blood in urine Ext: Denies edema Neurology: Denies weakness or numbness Physical Exam Vitals & Measurements Systolic Blood Pressure: 186 mmHg Critical (05/09/24 10:14:) Diastolic Blood Pressure: 71 mmHg (05/09/24:14:) Temperature Temporal (F): 96.8 degF (05/09/24:14:00) Peripheral Pulse Rate: 64 bpm (05/09/24:14:) Mean Arterial Pressure: 109 mmHg (05/09/24 10:14:) Height/Length Measured: 157 cm (05/09/24:14:00) Weight Measured: 84 kg (05/09/24:14:) Body Mass Index Measured: 34.08 kg/m2 (05/09/24:14:) Weight Measured - lbs2: 186 lb (05/09/24:14:00) Height/Length Measured - in2: 62 in (05/09/24:14:) Body Mass Index Measured English2: 34.02 kg/m2 (05/09/24:14:) BSA: 1.92 m2 (05/09/24 10:14:00) Ht/Wt Measurement Refused by Patient?2: No (05/09/24 10:14:00) Depression Screening Scores Initial Depression Screen Score: 0 (05/09/24 10:14:00) Fall Risk Assessment Is the patient ambulatory (mobile): Yes (05/09/24 10:14:00) Have you had a fall within the past: No (05/09/24 10:14:00) Have you had 2 or more falls in the past: No (05/09/24 10:14:00) VS reviewed as documented above General: No apparent distress, alert and conversant Skin: No rash or jaundice HEENT: No oral lesions, tongue midline ABD: Soft, nontender, nondistended, normoactive bowel sounds Neuro: AAO x 3, no focal weakness or numbness Medication Reconciliation What How Much When Instructions New ondansetron (ondansetron 4 mg oral tablet, disintegrating = Zofran) 1 Tabs Oral DAILY Pickup at [facility]/pharmacy #[id number] Changed linaclotide (Linzess 145 mcg oral capsule) 1 Capsules Oral DAILY Unchanged clonazePAM (KlonoPIN) See instructions ORAL TID, As needed for Anxiety Unchanged hydrochlorothiazide = HydroDIURIL (hydroCHLOROthiazide 25 mg oral tablet) 1 Tabs Duration: 30 Days TAKE 1 TABLET BY MOUTH EVERY DAY IN THE MORNING Unchanged omeprazole (omeprazole 20 mg oral delayed release capsule) 1 Capsules Oral DAILY Pharmacy Information [facility]/pharmacy #[id number]: [address], [place] [phone] Assessment/Plan This Visit Diagnosis 1. Constipation K59.00 Symptoms overall under control on Linzess 145. Occasionally she needs to take 2 of those daily. Continue current dosing. Ordered: AMB Office/Outpt Est Pt Mod MDM / 30 min [id number], 05/09/2024 10:22:00 EST, Constipation / GERD (gastroesophageal reflux disease) / Nausea / Family history of colon cancer 2. GERD (gastroesophageal reflux disease) K21.9 She has had control of GERD/heartburn issues on low-dose omeprazole. Will continue current dose for now. Based on symptoms of her nausea may consider increased dosing. Ordered: AMB Office/Outpt Est Pt Mod MDM / 30 min [id number], 05/09/2024 10:22:00 EST, Constipation / GERD (gastroesophageal reflux disease) / Nausea / Family history of colon cancer 3. Family history of colon cancer Z80.0 She is due for colonoscopy and follow-up in October 2027. Father had colon cancer at (more content not included)... Normal [facility] Phone Msgokev 05-10-2024 Phone Msg - From: REG ALBERTO PA-C To: Poppy Justice MA; Sent: 05/09/2024 14:14:17 EST Caller Name: DAXA ALVARADO; Caller Number: H Labs show normal TSH, CBC, CMP except for slightly low potassium/minimally low potassium. Negative test. We discussed using some Zofran and considering EGD. Mr. Alvarado had elevated blood pressure in office can you please have her recheck at work or home and then let us know what that is. Results: Date Result Name Ind Value Ref Range 05/09/2024 10:57 BUN 16 mg/dL (9 - 23) 05/09/2024 10:57 Na 142 mmol/L (135 - 145) 05/09/2024 10:57 K (L) 3.4 mmol/L (3.5 - 5.1) 05/09/2024 10:57 Chloride 107 mmol/L (98 - 107) 05/09/2024 10:57 CO2, venous 25.0 mmol/L (20.0 - 31.0) 05/09/2024 10:57 Glucose 75 mg/dL (74 - 106) 05/09/2024 10:57 Creatinine 0.8 mg/dL (0.5 - 0.8) 05/09/2024 10:57 Total Protein 7.0 g/dL (5.7 - 8.2) 05/09/2024 10:57 Calcium 10.0 mg/dL (8.7 - 10.4) 05/09/2024 10:57 Bilirubin, Total 0.40 mg/dL (0.30 - 1.20) 05/09/2024 10:57 Alk Phos 84 unit/L (45 - 117) 05/09/2024 10:57 GOT 17 unit/L (15 - 37) 05/09/2024 10:57 GPT 18 unit/L (10 - 49) 05/09/2024 10:57 BUN/Creat Ratio 20.0 05/09/2024 10:57 Calculated Osmolality 283 mOsm/kg (275 - 295) 05/09/2024 10:57 Globulin 3.0 g/dL 05/09/2024 10:57 A/G Ratio 1.3 05/09/2024 10:57 TSH 2.51 uIU/ml (0.55 - 4.78) 05/09/2024 10:57 HCG, Quant <2.6 mIU/mL 05/09/2024 10:57 ALB 4.0 g/dL (3.4 - 5.0) 05/09/2024 10:57 Glomerular Filtration Rate >60 mL/min/1.73m? 05/09/2024 10:57 GFR AA >60 05/09/2024 10:57 WBC 7.8 x103/uL (4.5 - 11.0) 05/09/2024 10:57 RBC 4.78 x106/uL (4.20 - 5.40) 05/09/2024 10:57 HGB 13.8 g/dL (12.0 - 16.0) 05/09/2024 10:57 HCT 41.1 % (36.0 - 46.0) 05/09/2024 10:57 MCV 86.0 fL (80.0 - 100.0) 05/09/2024 10:57 MCH 29.0 pg (27.0 - 34.0) 05/09/2024 10:57 MCHC 33.7 g/dL (32.0 - 37.0) 05/09/2024 10:57 RDW 13.1 % (11.5 - 14.5) 05/09/2024 10:57 Platelet 326 x103/uL (150 - 450) 05/09/2024 10:57 MPV 8.0 fL (7.4 - 10.4) 05/09/2024 10:57 Nucleated RBC 0 /100WBC 05/09/2024 10:57 Lymph % 35.0 % 05/09/2024 10:57 [place]rop % 6.8 % 05/09/2024 10:57 Neutrophil % 56.4 % 05/09/2024 10:57 Eosin % 1.3 % 05/09/2024 10:57 Basos % 0.5 % 05/09/2024 10:57 Lymph Count 2.73 x1000 (1.20 - 4.80) 05/09/2024 10:57 Bastrop Count 0.53 x1000 (0.10 - 1.00) 05/09/2024 10:57 Neutrophil Count (ANC) 4.41 x1000 (1.40 - 8.80) 05/09/2024 10:57 Eos Count 0.10 x1000 (0.00 - 0.50) 05/09/2024 10:57 Baso Count 0.04 x1000 (0.00 - 0.20) LM w/ results Asked pt to call back with a blood pressure Spoke to patient her blood pressure was this morning 99/67. From: Poppy Justice MA To: REG ALBERTO PA-C; Sent: 05/10/2024 11:07:47 EST Subject: RE: Caller Name: DAXA ALVARADO; Caller Number: H Thanks! Normal [facility] AUTO DIFFon 05-09-2024 Baso Count 0.04 x1000 Normal 0.00-0.20 [facility] Comment on above: Performed By: #### 1 [id number], CD:[id number] #### [facility] [address] [place] [address] Silver Recovery Operator: Omkar Beltran MD Basos % 0.5 % Normal [facility] Comment on above: Performed By: #### 1 16097, CD:[id number], [id number] #### [facility] [address] [place] [address] Silver Recovery Operator: Omkar Beltran MD Eos Count 0.10 x1000 Normal 0.00-0.50 [facility] Comment on above: Performed By: #### 1 51029, CD:[id number] #### [facility] [address] [place] [address] [employer] Operator: Omkar Beltran MD Eosinophils/100 WBC (Bld) 1.3 % Normal [facility] Comment on above: Performed By: #### 1 51272, CD:[id number] #### [facility] [address] [place] [address] Silver Recovery Operator: Omkar Beltran MD Lymph Count 2.73 x1000 Normal 1.20-4.80 [facility] Comment on above: Performed By: #### 1 , CD:[id number], [id number], [id number] #### [facility] [address] [place] [address] [employer] Operator: mOkar Beltran MD Lymphocytes/100 WBC (Bld) 35.0 % Normal [facility] Comment on above: Performed By: #### 1 , CD:[id number], [id number], [id number] #### [facility] [address] [place] [address] Silver Recovery Operator: Omkar Beltran MD Bastrop Count 0.53 x1000 Normal 0.10-1.00 [facility] Comment on above: Performed By: #### 1 , CD:[id number], [id number], [id number], [id number] #### [facility] [address] [place] [address] [employer] Operator: Omkar Beltran MD Monocytes/100 WBC (Bld) 6.8 % Normal [facility] Comment on above: Performed By: #### 1 , CD:[id number], [id number], [id number], [id number] #### [facility] [address] [place] [address] [employer] Operator: Omkar Beltran MD Neutrophil Count (ANC) 4.41 x1000 Normal 1.40-8.80 [facility] Comment on above: Performed By: #### 1 , CD:[id number], [id number], [id number] #### [facility] [address] [place] [address] [employer] Operator: Omkar Beltran MD Neutrophils/100 WBC (Bld) 56.4 % Normal [facility] Comment on above: Performed By: #### 1 24977, CD:[id number], [id number], [id number], [id number] #### [facility] [address] [place] [address] Silver Recovery Operator: Omkar Beltran MD Ambulatory Clinical Summaryo n 05-09-2024 Ambulatory Clinical Summary DAXA ALVARADO :1990 Registration Date:05/09/2024 Ambulatory Visit Instructions Your Diagnosis Constipation GERD (gastroesophageal reflux disease) Family history of colon cancer Nausea Your Care Team Attending Physician - REG ALBERTO PA-C Primary Care Physician - JOSE BERGERON Procedures Performed Colonoscopy. (11/03/2022) esophagogastroduodenoscopy( EGD). (11/03/2022) Suction dilation and curettage. (06/17/2020) Insertion of intrauterine device (IUD) (03/29/2019) esophagogastroduodenoscopy( EGD). (05/28/2018) Colonoscopy. (09/23/2015) Cholecystectomy; (2013) Tonsillectomy (05/25/2011) Tonsillectomy, primary or secondary; younger than age 12 Kidney Stones Discharge Vitals Temperature (Temporal Artery) 96.8 DEGF Heart Rate (Peripheral) 64 Blood Pressure 186/71 Height 61.81 in (157 cm) Weight 185.22 lb (84 kg) BMI 34.08 Systolic Blood Pressure: 186 mmHg Critical (05/09/24 10:14:00) Diastolic Blood Pressure: 71 mmHg (05/09/24 10:14:00) Temperature Temporal (F): 96.8 degF (05/09/24 10:14:00) Peripheral Pulse Rate: 64 bpm (05/09/24 10:14:00) Mean Arterial Pressure: 109 mmHg (05/09/24 10:14:00) Height/Length Measured: 157 cm (05/09/24 10:14:00) Weight Measured: 84 kg (05/09/24 10:14:00) Body Mass Index Measured: 34.08 kg/m2 (05/09/24 10:14:00) Weight Measured - lbs2: 186 lb (05/09/24 10:14:00) Height/Length Measured - in2: 62 in (05/09/24 10:14:00) Body Mass Index Measured English2: 34.02 kg/m2 (05/09/24 10:14:00) BSA: 1.92 m2 (05/09/24 10:14:00) Ht/Wt Measurement Refused by Patient?2: No (05/09/24 10:14:00) What to do next Scheduled Follow-Up Appointments No results You Need to Schedule the Following Appointments CBCWD(CBC WITH DIFF), ROUTINE, 05/09/2024, Order for future visit-Diagnosis required, Dx: Nausea COMPMETA(CMP), ROUTINE, 05/09/2024, Order for future visit-Diagnosis required, Dx: Nausea HCG QUANT, ROUTINE, 05/09/2024, Order for future visit-Diagnosis required, Dx: Nausea TSH with FT4 Reflex, ROUTINE, 05/09/2024, Order for future visit-Diagnosis required, Dx: Constipation Medications What How Much When Instructions New ondansetron (ondansetron 4 mg oral tablet, disintegrating = Zofran) 1 Tabs Oral DAILY Pickup at [facility]/pharmacy #[id number] Changed linaclotide (Linzess 145 mcg oral capsule) 1 Capsules Oral DAILY Unchanged clonazePAM (KlonoPIN) See instructions ORAL TID, As needed for Anxiety Unchanged hydrochlorothiazide = HydroDIURIL (hydroCHLOROthiazide 25 mg oral tablet) 1 Tabs Duration: 30 Days TAKE 1 TABLET BY MOUTH EVERY DAY IN THE MORNING Unchanged omeprazole (omeprazole 20 mg oral delayed release capsule) 1 Capsules Oral DAILY Pharmacy Information [facility]/pharmacy #[id number]: [address], [place] [phone] Allergies Adhesive tape allergy LATEX allergy No Known Medication Allergies Problems Ongoing - Any problem that you are currently receiving treatment for. Diabetes, gestational Gallbladder disease GERD (gastroesophageal reflux disease) Migraine Common Emergency Awareness Tips IS IT A STROKE? Act FAST and Check for these signs: FACE Does the face look uneven? ARM Does one arm drift down? SPEECH Does their speech sound strange? TIME Call at any sign of stroke Heart Attack Signs Chest discomfort: Most heart attacks involve discomfort in the center of the chest and lasts more than a few minutes, or goes away and comes back. It can feel like uncomfortable pressure, squeezing, fullness or pain. Discomfort in upper body: Symptoms can include pain or discomfort in one or both arms, back, neck, jaw or stomach. Shortness of breath: With or without discomfort. Other signs: Breaking out in a cold sweat, nausea, or lightheaded. Remember, MINUTES DO MATTER. If you experience any of these heart attack warning signs, call 12-23- to get immediate medical attention! Normal [facility] COMPMETAon 05-09-2024 Albumin [Mass/Vol] 4.0 g/dL Normal 3.4-5.0 [facility] Comment on above: Order Comment: Order ed on Fin# [id number] Performed By: #### 1 46606, CD:[id number], 849151, 807000, 2948146 #### [facility] [address] [place], [place] [address] Silver Recovery Operator: Omkar Beltran MD Albumin/Globulin [Mass ratio] 1.3 {ratio} Normal [facility] Comment on above: Order Comment: Order ed on Fin# [id number] Performed By: #### 1 27636, CD:[id number], 928155, 214491, 9342541 #### [facility] [address] [place], [place] [address] Silver Recovery Operator: Omkar Beltran MD Alk Phos 84 unit/L Normal 45-117 [facility] Comment on above: Order Comment: Order ed on Fin# [id number] Performed By: #### 1 51217, CD:[id number], 901978, 881192, 3594978 #### [facility] [address] [place], [place] [address] Silver Recovery Operator: Omkar Beltran MD Bilirubin [Mass/Vol] 0.40 mg/dL Normal 0.30-1.20 [facility] Comment on above: Order Comment: Order ed on Fin# [id number] Result Comment: Use of this assay is not recommended for patients undergoing treatment with eltrombopag due to the potential for falsely elevated results. Performed By: #### 1 72830, CD:[id number], 062616, 169507, 4473221 #### [facility] [address] [place] [address] Silver Recovery Operator: Omkar Beltran MD Calcium [Mass/Vol] 10.0 mg/dL Normal 8.7-10.4 [facility] Comment on above: Order Comment: Order ed on Fin# [id number] Performed By: #### 1 15401, CD:[id number], 280272, 824455, 3743272 #### [facility] [address] [place], [place] [address] Silver Recovery Operator: Omkar Beltran MD Chloride [Moles/Vol] 107 mmol/L Normal 98-107 [facility] Comment on above: Order Comment: Order ed on Fin# [id number] Performed By: #### 1 09496, CD:[id number], 300187, 496042, 6801163 #### [facility] [address] [place], [place] [address] Silver Recovery Operator: Omkar Beltran MD CO2 [Moles/Vol] 25.0 mmol/L Normal 20.0-31.0 [facility] Comment on above: Order Comment: Order ed on Fin# [id number] Performed By: #### 1 52217, CD:[id number], 500318, 224592, 7063497 #### [facility] [address] [place], [place] [address] Silver Recovery Operator: Omkar Beltran MD Creatinine [Mass/Vol] 0.8 mg/dL Normal 0.5-0.8 [facility] Comment on above: Order Comment: Order ed on Fin# [id number] Performed By: #### 1 87951, CD:[id number], 613922, 988282, 7148981 #### [facility] [address] [place] [address] Silver Recovery Operator: Omkar Beltran MD GFR AA >60 Normal [facility] Comment on above: Order Comment: Order ed on [facility]# [id number] Result Comment: Afri can Swiss GFR Calc Medical judgement is necessary to interpret GFR. The calculated GFR may not accurately reflect renal status in patients >70 years, women, acutely ill hospitalized patients and patients with acute renal failure or known renal disease. The MDRD GFR formula is valid only for adults greater than 18 years of age. Note: Creatinine clearance (not GFR) should be used for drug dosing. Performed By: #### 1 24223, CD:[id number], 273496, 692146, 1160924 #### [facility] [address] [place] [address] Silver Recovery Operator: Omkar Beltran MD Globulin (S) [Mass/Vol] 3.0 g/dL Normal [facility] Comment on above: Order Comment: Order ed on [facility]# [id number] Performed By: #### 1 38166, CD:[id number], 371059, 988059, 4071549 #### [facility] [address] [place] [address] Silver Recovery Operator: Omkar Beltran MD Glomerular Filtration Rate >60 Normal [facility] Comment on above: Order Comment: Order ed on [facility]# [id number] Result Comment: Non- GFR Calc Medical judgement is necessary to interpret GFR. The calculated GFR may not accurately reflect renal status in patients >70 years, women, acutely ill hospitalized patients and patients with acute renal failure or known renal disease. The MDRD GFR formula is valid only for adults greater than 18 years of age. Note: Creatinine clearance (not GFR) should be used for drug dosing. Performed By: #### 1 46135, CD:[id number], 595384, 831691, 5600871 #### [facility] [address] [place] [address] Silver Recovery Operator: Omkar Beltran MD Glucose [Mass/Vol] 75 mg/dL Normal 74-106 [facility] Comment on above: Order Comment: Order ed on Fin# [id number] Performed By: #### 1 43854, CD:519981171, 459917, 072958, 5765108 #### [facility] [address] [place] [address] Silver Recovery Operator: Omkar Beltran MD GOT 17 unit/L Normal 15-37 [facility] Comment on above: Order Comment: Order ed on Fin# [id number] Performed By: #### 1 , CD:[id number], 383465, 012842, 0524486 #### [facility] [address] [place] [address] Silver Recovery Operator: Omkar Beltran MD GPT 18 unit/L Normal 10-49 [facility] Comment on above: Order Comment: Order ed on Fin# [id number] Performed By: #### 1 , CD:[id number], 287047, 176878, 5340136 #### [facility] [address] [place] [address] Silver Recovery Operator: Omkar Beltran MD Osmolality [Osmolality] 283 mosm/kg Normal 275-295 [facility] Comment on above: Order Comment: Order ed on Fin# [id number] Performed By: #### 1 , CD:[id number], 313584, 284605, 3869369 #### [facility] [address] [place] [address] Silver Recovery Operator: Omkar Beltran MD Potassium [Moles/Vol] 3.4 mmol/L Low 3.5-5.1 [facility] Comment on above: Order Comment: Order ed on Fin# [id number] Performed By: #### 1 77535, CD:[id number], 075620, 938965, 6414280 #### [facility] [address] [place] [address] Silver Recovery Operator: Omkar Beltran MD Protein [Mass/Vol] 7.0 g/dL Normal 5.7-8.2 [facility] Comment on above: Order Comment: Order ed on Fin# [id number] Result Comment: Tota l Protein results may be increased in patients receiving dextran as a blood volume industrial gas servicer Performed By: #### 1 32506, CD:[id number], 504985, 934558, 2894239 #### [facility] [address] [place] [address] Silver Recovery Operator: Omkar Beltran MD Sodium [Moles/Vol] 142 mmol/L Normal 135-145 [facility] Comment on above: Order Comment: Order ed on Fin# [id number] Performed By: #### 1 32463, CD:[id number], 668330, 801861, 3349997 #### [facility] [address] [place] [address] Silver Recovery Operator: Omkar Beltran MD Urea nitrogen [Mass/Vol] 16 mg/dL Normal 9-23 [facility] Comment on above: Order Comment: Order ed on Fin# [id number] Result Comment: - Ve nipuncture should occur prior to N-Acetyl Cysteine (NAC) or Metamizole (Sulpyrine) administration due to the potential for falsely depressed results. - Blood samples from some patients with monoclonal gammopathies may produce falsely elevated results Performed By: #### 1 29682, CD:[id number], 649706, 014379, 0502195 #### [facility] [address] [place] [id number] Silver Recovery Operator: Omkar Beltran MD Urea nitrogen/Creatinine [Mass ratio] 20.0 mg/mg Normal [facility] Comment on above: Order Comment: Order ed on Fin# [id number] Performed By: #### 1 18399, CD:[id number], 892996, 993377, 0359003 #### [facility] [place] [id number] Silver Recovery Operator: Omkar Beltran MD Comprehensive Intake - Texto n 05-09-2024 Comprehensive Intake - Text Comprehensive Intake Entered On: 05/09/2024 10:15 EST Performed On: 05/09/2024 10:14 EST by Fatemeh Yeung MA Summary Chief Complaint : yealry f/u Advance Directive : No Bladder Control Issues? : No Urine Leakage? : No Presence or absence of urinary incontinence assessed : Yes CPT-II Medication list doc'd in medical record : Yes Influenza immunization administered or previously received : No Pneumococcal vaccine administered or previously received : No Fatemeh Yeung MA - 05/09/2024 10:14 EST Measurements Ht/Wt Measurement Refused by Patient? : No Weight Measured : 84 kg(Converted to: 185 lb 3 oz, 185.188 lb) Height/Length Measured : 157 cm(Converted to: 5 ft 2 in, 61.81 in) Body Mass Index Measured : 34.08 kg/m2 Body Mass Index documented : Yes Weight Measured - lbs : 186 lb(Converted to: 186 lb 0 oz, 84 kg) Height/Length Measured - in : 62 in(Converted to: 5 ft 2 in, 157 cm) Body Mass Index Measured Norwegian : 34.02 kg/m2 BSA Norwegian : 1.92 m2 Fatemeh Yeung MA - 05/09/2024 10:14 EST Vitals Require BP : Yes Systolic Blood Pressure : 186 mmHg (>HHI) Diastolic Blood Pressure : 71 mmHg Mean Arterial Pressure : 109 mmHg Pulse Rate : 64 bpm Last Systolic BP : greater than or equal to 140 mmHg Last Diastolic BP : less than 80 mmHg Temperature Temporal (F) : 96.8 degF(Converted to: 36 degC) Pain Present : No actual or suspected pain Pain : 0 Pain severity quantified : No pain present Fatemeh Yeung MA - 05/09/2024 10:14 EST Infection Screening Travel outside [place] within past 21 days : No Positive COVID test in the last 10 days? : No Exposure to and/or close contact with a person who has a laboratory-confirmed COVID test within the last 48 hours. : No Fatemeh Yeung MA - 05/09/2024 10:14 EST Depression Screening Is patient currently : None of the Below Feeling Down, Depressed, Hopeless : Not at all Little Interest - Pleasure in Activities : Not at all Initial Depression Screen Score : 0 Depression Screening Score 0 : No Fatemeh Yeung MA - 05/09/2024 10:14 EST Problems (As Of: 05/09/2024 10:15:43 EST) Problems(Active) Anxiety (SNOMED CT :48697695 ) Name of Problem: Anxiety ; Recorder: Sorin Browne RN; Confirmation: Confirmed ; Classification: Patient/Family Stated ; Code: [id number] ; Contributor System: PowerChart ; Last Updated: 12/14/2013 18:09 EDT ; Life Cycle Date: 12/14/2013 ; Life Cycle Status: Active ; Vocabulary: SNOMED CT At risk for falls (SNOMED CT :947538244 ) Name of Problem: At risk for falls ; Recorder: SYSTEM; Confirmation: Confirmed ; Classification: Nursing ; Code: 997908139 ; Last Updated: 07/08/2014 09:10 EDT ; Life Cycle Date: 12/17/2013 ; Life Cycle Status: Active ; Vocabulary: SNOMED CT ; Comments: 12/17/2013 17:38 - SYSTEM Problem added automatically by system based on documentation of a admission to the hospital. Depression (SNOMED CT :81809068 ) Name of Problem: Depression ; Recorder: Sorin Browne RN; Confirmation: Confirmed ; Classification: Patient/Family Stated ; Code: 19198527 ; Contributor System: PowerChart ; Last Updated: 12/14/2013 18:08 EDT ; Life Cycle Date: 12/14/2013 ; Life Cycle Status: Active ; Vocabulary: SNOMED CT Diabetes, gestational (SNOMED CT :77669162 ) Name of Problem: Diabetes, gestational ; Recorder: NEO VIEIRA MD, FACOG; Confirmation: Confirmed ; Classification: Medical ; Code: 03403328 ; Contributor System: PowerChart ; Last Updated: 08/11/2021 10:55 EDT ; Life Cycle Status: Active ; Responsible Provider: NEO VIEIRA MD, FACOG; Vocabulary: SNOMED CT Gallbladder disease (SNOMED CT :468630516 ) Name of Problem: Gallbladder disease ; Recorder: Poppy Justice MA; Confirmation: Confirmed ; Classification: Medical ; Code: [id number] ; Contributor System: PowerChart ; Last Updated: 05/23/2018 12:23 EST ; Life Cycle Date: 05/23/2018 ; Life Cycle Status: Active ; Vocabulary: SNOMED CT GERD (gastroesophageal reflux disease) (SNOMED CT :127357652 ) Name of Problem: GERD (gastroesophageal reflux disease) ; Recorder: Poppy Justice MA; Confirmation: Confirmed ; Classification: Medical ; Code: 359224859 ; Contributor System: Bee ResilientChart ; Last Updated: 05/23/2018 12:23 EST ; Life Cycle Date: 05/23/2018 ; Life Cycle Status: Active ; Vocabulary: SNOMED CT Kidney stones (SNOMED CT :513148958 ) Name of Problem: Kidney stones ; Recorder: Sorin Browne RN; Confirmation: Confirmed ; Classification: Patient/Family Stated ; Code: 389032795 ; Contributor System: [employer] ; Last Updated: 12/14/2013 18:08 EDT ; Life Cycle Date: 12/14/2013 ; Life Cycle Status: Active ; Vocabulary: SNOMED CT Migraine (SNOMED CT :14045133 ) Name of Problem: Migraine ; Recorder: Chloe Sutherland MA; Confirmation: Confirmed ; Classification: Medical ; Code: 64925025 ; Contributor System: Bee [employer]ilientChart ; Last Updated: 08/21/2019 14:07 EDT ; Life Cycle Date: 08/21/2019 ; Life Cycle Status: Active ; Vocabular (more content not included)... Normal [facility] HCG QUANTon 05-09-2024 HCG, Quant <2.6 Normal [facility] Comment on above: Order Comment: Order ed on Fin# [id number] Result Comment: 0.2- 1 weeks 5 -50 mIU/ml 1 - 2 weeks 50-500 mIU/ml 2 - 3 weeks 100-5,000 mIU/ml 3 - 4 weeks 500-10,000 mIU/ml 4 - 5 weeks 1,000-50,000 mIU/ml 5 - 6 weeks 10,000-100,000 mIU/ml 6 - 8 weeks 15,000-200,000 mIU/ml 2 - 3 months 10,000-100,000 mIU/ml Performed By: #### 1 91682, CD:064940805, 068639, 443309, 6872767 #### [facility] [address] [place] [address] Silver Recovery Operator: Omkar Beltran MD HEMOon 05-09-2024 DIFF? No Normal [facility] Comment on above: Performed By: #### 1 69232, CD:309512236, 989141, 662711, 1912755 #### [facility] [address] [place] [address] Silver Recovery Operator: Omkar Beltran MD Erythrocyte distribution width (RBC) [Ratio] 13.1 % Normal 11.5-14.5 [facility] Comment on above: Performed By: #### 1 , CD:288734145, 874541, 822900, 1606038 #### [facility] [address] [place] [address] Silver Recovery Operator: Omkar Beltran MD Hematocrit (Bld) [Volume fraction] 41.1 % Normal 36.0-46.0 [facility] Comment on above: Performed By: #### 1 , CD:[id number], 869498, 678428, 4803304 #### [facility] [address] [place], [place] [address] Silver Recovery Operator: Omkar Beltran MD Hemoglobin (Bld) [Mass/Vol] 13.8 g/dL Normal 12.0-16.0 [facility] Comment on above: Performed By: #### 1 , CD:149081181, 407591, 757067, 7538017 #### [facility] [address] [place] [address] Silver Recovery Operator: Omkar Beltran MD Instr WBC 7.8 Normal [facility] Comment on above: Performed By: #### 1 , CD:168484945, 510701, 492470, 2280096 #### [facility] [address] [place] [address] Silver Recovery Operator: Omkar Beltran MD MCH (RBC) [Entitic mass] 29.0 pg Normal 27.0-34.0 [facility] Comment on above: Performed By: #### 1 , CD:032766871, 275936, 578822, 3615820 #### [facility] [address] [place] [address] Silver Recovery Operator: Omkar Beltran MD MCHC (RBC) [Mass/Vol] 33.7 g/dL Normal 32.0-37.0 [facility] Comment on above: Performed By: #### 1 , CD:996872471, 176418, 189997, 9450645 #### [facility] [address] [place], [place] [address] Silver Recovery Operator: Omkar Beltran MD MCV (RBC) [Entitic vol] 86.0 fL Normal 80.0-100.0 [facility] Comment on above: Performed By: #### 1 , CD:445104380, 965183, 419338, 6938299 #### [facility] [address] [place], [place] [address] Silver Recovery Operator: Omkar Beltran MD Nucleated RBC 0 /100WBC Normal [facility] Comment on above: Performed By: #### 1 , CD:[id number], 318987, 959394, 0619739 #### [facility] [address] [place], [place] [address] Silver Recovery Operator: Omkar Beltran MD Platelet 326 x10 Normal 150-450 [facility] Comment on above: Performed By: #### 1 , CD:150282588, 198735, 873698, 3016694 #### [facility] [address] [place] [address] Silver Recovery Operator: Omkar Beltran MD Platelet mean volume (Bld) [Entitic vol] 8.0 fL Normal 7.4-10.4 [facility] Comment on above: Performed By: #### 1 , CD:[id number], 457577, 923091, 1101348 #### [facility] [address] [place] [address] Silver Recovery Operator: Omkar Beltran MD RBC 4.78 x10 Normal 4.20-5.40 [facility] Comment on above: Result Comment: Note : RBC morphology is normal unless otherwise stated. Evaluation performed only if differential is requested. Performed By: #### 1 06798, CD:938304780, 646852, 756020, 0685936 #### [facility] [address] [place] [address] Silver Recovery Operator: Omkar Beltran MD WBC 7.8 x10 Normal 4.5-11.0 [facility] Comment on above: Performed By: #### 1 87066, CD:574657396, 541458, 602445, 6630452 #### [facility] [address] [place] [address] Silver Recovery Operator: Omkar Beltran MD TSH with FT4 Reflexon 2024 TSH Qn 2.51 m[IU]/L Normal 0.55-4.78 [facility] Comment on above: Order Comment: Order ed on [facility]# [id number] Result Comment: - Do not use samples that contain fluorescein. Fluorescein levels > 0.24 ?g/mL may decrease results in this assay - Patients undergoing retinal fluorescein angiography can retain amounts of fluorescein in the body for up to 48?72 hours post-treatment. Such samples can produce falsely depressed values when tested with this assay, and should not be tested Reference Intervals (if applicable): First trimester: 0.6-3.4 uIU/mL Second trimester: 0.37-3.6 uIU/mL Third trimester: 0.38-4.04 uIU/mL Reference: [email or web address] (01/2023) Performed By: #### 1 46685, CD:[id number], 706679, 089952, 7063660 #### [facility] [address] [place] [address] Silver Recovery Operator: Omkar Beltran MD Comprehensive Metabolic Prof ilon 11-23-2023 Albumin [Mass/Vol] 3.8 g/dL Normal 3.2-5.0 [facility] Comment on above: Performed By: #### L 500.4050 #### [facility] [address] [place], [address] Albumin/Globulin [Mass ratio] 1.1 {ratio} Normal 0.9-2.4 [facility] Comment on above: Performed By: #### L 500.4050 #### [facility] [address] [place], [address] ALK P 89 U/L Normal 45-117 [facility] Comment on above: Performed By: #### L 500.4050 #### [facility] [address] [place], [address] ALT [Catalytic activity/Vol] 34 U/L Normal 13-56 [facility] Comment on above: Performed By: #### L 500.4050 #### [facility] [address] [place], [address] AST [Catalytic activity/Vol] 20 U/L Normal 15-37 [facility] Comment on above: Performed By: #### L 500.4050 #### [facility] [address] [place], [address] Bilirubin [Mass/Vol] 0.60 mg/dL Normal 0.20-1.00 [facility] Comment on above: Result Comment: For patients on eltrombopag therapy, use of Dimension Hart TBIL is not recommended. Performed By: #### L 500.4050 #### [facility] [address] [place], [address] BUN/CRE 13.2 RATIO Normal 10-20 [facility] Comment on above: Performed By: #### L 500.4050 #### [facility] [address] [place], [address] CA,Total 9.5 mg/dL Normal 8.5-10.1 [facility] Comment on above: Performed By: #### L 500.4050 #### [facility] [address] [place], [address] Chloride [Moles/Vol] 104 mmol/L Normal 98-107 [facility] Comment on above: Performed By: #### L 500.4050 #### [facility] [address] [place], [address] CO2 [Moles/Vol] 29.0 mmol/L Normal 21.0-32.0 [facility] Comment on above: Performed By: #### L 500.4050 #### [facility] Laboratory [address] [place], [address] Creatinine [Mass/Vol] 0.68 mg/dL Normal 0.55-1.02 [facility] Comment on above: Result Comment: The validity of the calculated GFR GFRAA in patients over 70 years has not been determined. Clinical correlation is essential. Performed By: #### L 500.4050 #### [facility] Laboratory [address] [place], [address] EST GFR - AA 126 mL/min Normal >60 [facility] Comment on above: Result Comment: Afri can Swiss GFR Calc Performed By: #### L 500.4050 #### [facility] Laboratory [address] [place], [address] GAP 6 Normal 5-15 [facility] Comment on above: Performed By: #### L 500.4050 #### [facility] Laboratory [address] [place], [address] GFR/1.73 sq M.predicted among non-blacks MDRD (S/P/Bld) [Vol rate/Area] 104 mL/min/{1.73_m2} Normal >60 [facility] Comment on above: Result Comment: Non- GFR Calc Performed By: #### L 500.4050 #### [facility] Laboratory [address] [place], [address] Globulin (S) [Mass/Vol] 3.6 g/dL Normal 2.2-4.2 [facility] Comment on above: Performed By: #### L 500.4050 #### [facility] Laboratory [address] [place], [address] Glucose [Mass/Vol] 96 mg/dL Normal 74-106 [facility] Comment on above: Performed By: #### L 500.4050 #### [facility] Laboratory [address] [place], [address] Potassium [Moles/Vol] 3.5 mmol/L Normal 3.5-5.1 [facility] Comment on above: Performed By: #### L 500.4050 #### [facility] Laboratory [address] [place], [address] Sodium [Moles/Vol] 139 mmol/L Normal 136-145 [facility] Comment on above: Performed By: #### L 500.4050 #### [facility] Laboratory [address] [place], [address] T PROT 7.4 g/dL Normal 6.4-8.2 [facility] Comment on above: Performed By: #### L 500.4050 #### [facility] Laboratory [address] [place], [address] Urea nitrogen [Mass/Vol] 9 mg/dL Normal 7-18 [facility] Comment on above: Performed By: #### L 500.4050 #### [facility] Laboratory [address] [place], [address] Destr of lesionon 08-25-2023 Complexity: simple Destruction method: cryotherapy [facility] Work Phone: [facility] Work Phone: [phone] 08-04-2023 VITAMIN B6 15.6 ug/L Normal 3.4-65.2 [facility] Comment on above: Order Comment: Test( s) 232915-Mpsvofw B6was developed and its performance characteristicsdetermined by [employer]. It has not been cleared or approvedby the Food and Drug Administration. Result Comment: Defi ciency: <3.4 Marginal: 3.4 - 5.1 Adequate: >5.1 Performed at: [facility] [address], [place] [id number] Women'S Activities Adviser: Vanessa Garcia [facility], Phone: [phone] Performed at: [facility] [employer] [id number] Women'S Activities Adviser: Jennifer Boykin MD, Phone: [phone] Performed By: #### L 500.4050 #### [facility] [address] [place], [address] MTHFR DNA Varianton 08-04-19 24 MTHFR DNA Comment Normal . [facility] Comment on above: Order Comment: Test( s) 207286-Vondwbz B6was developed and its performance characteristicsdetermined by [employer]. It has not been cleared or approvedby the Food and Drug Administration. 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 [id number]), legacy name: [id number] - Not Detected Interpretation: This result is not associated with an increased risk for hyperhomocysteinemia. See Additional Clinical Information and Comments. Additional Clinical Information: Hyperhomocysteinemia is multifactorial involving genetic, clinical, and environmental risk factors. Reduced enzyme activity of methylenetetrahydrofolate reductase (MTHFR) is a genetic risk factor for hyperhomocysteinemia, particularly when serum folate levels are low. There are two common variants in the MTHFR gene that can decrease enzyme activity; c.665C>T (p. [id number]), legacy name [id number], and c.1286A>C (p. [id number]), legacy name [id number]. These variants do not independently increase risk of conditions related to hyperhomocysteinemia in the absence of elevated homocysteine levels. Measurement of total plasma homocysteine is recommended. Patients should share their MTHFR genotype with physicians who are making decisions regarding chemotherapy treatments that depend on folate, such as methotrexate. Guidelines do not recommend genotyping of these two MTHFR variants in the evaluation of venous thrombosis or obstetric risk due to limited evidence of clinical utility (PMID: 89144355). Comments: Genetic Coordinators are available for health care providers to discuss results at [phone] Test Details: Variants Analyzed: c.665C>T (p. [id number]), legacy name: [id number] and c.1286A>C (p. [id number]), legacy name: [id number] Methods/Limitations: DNA analysis of the MTHFR gene was performed by PCR amplification followed by restriction enzyme analysis. The diagnostic sensitivity is >99%. Results must be combined with clinical information for the most accurate interpretation. Molecular-based testing is highly accurate, but as in any laboratory test, diagnostic errors may occur. False positive or false negative results may occur for reasons that include genetic variants, blood transfusions, bone marrow transplantation, somatic or tissue-specific mosaicism, mislabeled samples, or erroneous representation of family relationships. This test was developed and its performance characteristics determined by [employer]. It has not been cleared or approved by the Food and Drug Administration. References: Miriam SE, Rad CJ, Maxime KELLER. ACMG Practice Guideline: lack of evidence for MTHFR polymorphism testing. Maria Fernanda Med. 2012;15(2):153-6. doi: 10.1038/gim.2012.165. Epub 2012Apr 26. PMID: 20330906. [place] [employer]' Committee on Practice Bulletins-Obstetrics. ACOG Practice Bulletin No. 197: Inherited Thrombophilias in . Obstet Gynecol. 2018 Oct;132(1):e18-e34. doi: 10.1097/AOG.[id number]. Erratum in: Obstet Gynecol. 2018 Jan;132(4):1069. PMID: 85219638. Performed By: #### L 500.4050 #### [facility] [address] [place], [address] MTHFR Reviewed Comment Normal . [facility] Comment on above: Order Comment: Test( s) 958205-Ouvqacb B6was developed and its performance characteristicsdetermined by [employer]. It has not been cleared or approvedby the Food and Drug Administration. Result Comment: Benja Redman, PhD Director, Molecular Genetics Performed By: #### L 500.4050 #### [facility] [address] [place], [place], [address] GISSELLE Comprehensive Panelon GISSELLE TABLE Comment Normal . [facility] Comment on above: Result Comment: Auto antibody Disease Association Condition Frequency --------- Antinuclear Antibody, SLE, mixed connective Direct (GISSELLE-D) tissue diseases --------- dsDNA SLE 40 - 60% --------- Chromatin Drug induced SLE 90% SLE 48 - 97% --------- SSA (Ro) SLE 25 - 35% Sjogren's Syndrome 40 - 70% Lupus 100% --------- SSB (La) SLE 10% Sjogren's Syndrome 30% --------- Sm (anti-Jauregui) SLE 15 - 30% --------- TOWEL INSPECTOR Mixed Connective Tissue Disease 95% (U1 nRNP, SLE 30 - 50% anti-ribonucleoprotein) Polymyositis and/or Dermatomyositis 20% --------- Scl-70 (antiDNA Scleroderma (diffuse) 20 - 35% topoisomerase) Crest 13% --------- Kylie-1 Polymyositis and/or Dermatomyositis 20 - 40% --------- Centromere B Scleroderma - Crest variant 80% Performed By: #### L 500.3188 #### [facility] [address] [place], [address] ANTI-CENT B AB <0.2 Normal 0.0-0.9 [facility] Comment on above: Performed By: #### L 500.8385 #### [facility] [address] [place], [address] ANTI-DNA (DS)AB 5 IU/mL Normal 0-9 [facility] Comment on above: Result Comment: Nega tive <5 Equivocal 5 - 9 Positive >9 Performed By: #### L 500.4050 #### [facility] Laboratory [address] [place], [address] ANTI-KYLIE-1 <0.2 Normal 0.0-0.9 [facility] Comment on above: Performed By: #### L 500.4050 #### [facility] Laboratory [address] [place], [address] ANTI-SS-A < 0.2 Normal 0.0-0.9 [facility] Comment on above: Performed By: #### L 500.4050 #### [facility] Laboratory [address] [place], [address] Anti-SS-B < 0.2 Normal 0.0-0.9 [facility] Comment on above: Performed By: #### L 500.4050 #### [facility] [address] [place], [address] ANTICHROMATIN <0.2 Normal 0.0-0.9 [facility] Comment on above: Performed By: #### L 500.4050 #### [facility] Laboratory [address] [place], [address] ANTISCLERODERM <0.2 Normal 0.0-0.9 [facility] Comment on above: Performed By: #### L 500.4050 #### [facility] [address] [place], [address] TOWEL INSPECTOR Ab 0.2 AI Normal 0.0-0.9 [facility] Comment on above: Performed By: #### L 500.4050 #### [facility] [address] [place], [address] JAUREGUI Ab <0.2 Normal 0.0-0.9 [facility] Comment on above: Performed By: #### L 500.4050 #### [facility] Laboratory [address] [place], [place], [address] Vitamin D 1,25-Dihydroxyon 0 07-14-2023 VIT D 1,25 DIHY 70.1 pg/mL Normal 24.8-81.5 [facility] Comment on above: Result Comment: Perf ormed at: - [facility] [address] [id number] Women'S Activities Adviser: Troy Zamora PhD, Phone: [phone] Performed at: - [facility] [address] [id number] Women'S Activities Adviser: Jennifer Boykin MD, Phone: [phone] Performed By: #### L 500.405 #### [facility] [address] [place], [place], [address] Absolute lymphocyte countOrd ered By: Jenny Bergeron on 07-11-2023 Lymphocytes Auto (Unsp spec) [#/Vol] 2.17 10*3/uL 0.83-4.51 [facility] Automated lymphocyte count a s percentage of total leukocytesOrdered By: Jenny Bergeron on 07-11-2023 Lymphocytes/100 WBC Auto (Unsp spec) 35.9 % 19-41 [facility] Basophil percentageOrdered B y: Jenny Bergeron on 07-11-2023 Basophils/100 WBC (Bld) 0.5 % 0-1 [facility] Bilirubin [Mass/Vol] 0.40 mg/dL 0.20-1.00 [facility] Comment on above: For patients on eltr ombopag therapy, use of Dimension Hart TBIL is not recommended. Chloride [Moles/Vol] 105 mmol/L 98-107 [facility] Cholesterol [Mass/Vol] 278 mg/dL <200 [facility] Comment on above: <200 mg/dL Desirable 200-240 mg/dL Borderline >240 mg/dL High Risk Eosinophils/100 WBC (Bld) 2.0 % 0-5 [facility] Glucose [Mass/Vol] 94 mg/dL 74-106 [facility] Hemoglobin (Bld) [Mass/Vol] 13.2 g/dL 12.0-15.0 [facility] Monocytes/100 WBC (Bld) 6.9 % 0-10 [facility] Neutrophils (Bld) [#/Vol] 3.3 10*3/uL 2.0-7.7 [facility] Neutrophils/100 WBC (Bld) 54.5 % 47-70 [facility] Potassium [Moles/Vol] 3.4 mmol/L 3.5-5.1 [facility] Protein [Mass/Vol] 7.5 g/dL 6.4-8.2 [facility] Sodium [Moles/Vol] 138 mmol/L 136-145 [facility] Triglyceride [Mass/Vol] 249 mg/dL <199 [facility] Comment on above: The drugs N-Acetylcy steine and Metamizole may falsely depress this assay.Serum Triglycerides Reference Interval Normal <150 mg/dL Borderline high 150 - 199 mg/dL High 200 - 499 mg/dL Very High > or = 500 mg/dL WBC (Bld) [#/Vol] 6.1 10*3/uL 4.4-11.0 [facility] CBC W/Diff, Automatedon 06-22 Absolute Lymph 2.17 X10 3/uL Normal 0.83-4.51 [facility] Comment on above: Performed By: #### L 3300.0960, L500.4100, L503.6075, L4600.0155, L501.9520, L506.0250, L500.4050, L503.0105, L503.6550, L100.0100, L3300.8200, L3100.5440 #### [facility] Laboratory [address] [place], [place], [address] Absolute Neut 3.3 X10 3/uL Normal 2.0-7.7 [facility] Comment on above: Performed By: #### L 3300.0960, L500.4100, L503.6075, L4600.0155, L501.9520, L506.0250, L500.4050, L503.0105, L503.6550, L100.0100, L3300.8200, L3100.5440 #### [facility] [address] [facility] [place], [address]) Basophils/100 WBC (Bld) 0.5 % Normal 0-1 [facility] Comment on above: Performed By: #### L 3300.0960, L500.4100, L503.6075, L4600.0155, L501.9520, L506.0250, L500.4050, L503.0105, L503.6550, L100.0100, L3300.8200, L3100.5440 #### [facility] [address] [facility] [place], [address] (307) Eosinophils/100 WBC (Bld) 2.0 % Normal 0-5 [facility] Comment on above: Performed By: #### L 3300.0960, L500.4100, L503.6075, L4600.0155, L501.9520, L506.0250, L500.4050, L503.0105, L503.6550, L100.0100, L3300.8200, L3100.5440 #### [facility] [address] [facility] [place], [place], [phone] (700) Erythrocyte distribution width (RBC) [Ratio] 13.0 % Normal 11.6-14.6 [facility] Comment on above: Performed By: #### L 3300.0960, L500.4100, L503.6075, L4600.0155, L501.9520, L506.0250, L500.4050, L503.0105, L503.6550, L100.0100, L3300.8200, L3100.5440 #### [facility] [address] [facility] [place], [address] (613) Hematocrit (Bld) [Volume fraction] 40.3 % Normal 37-47 [facility] Comment on above: Performed By: #### L 3300.0960, L500.4100, L503.6075, L4600.0155, L501.9520, L506.0250, L500.4050, L503.0105, L503.6550, L100.0100, L3300.8200, L3100.5440 #### [facility] [address] [place], [address] Hemoglobin (Bld) [Mass/Vol] 13.2 g/dL Normal 12.0-15.0 [facility] Comment on above: Performed By: #### L 3300.0960, L500.4100, L503.6075, L4600.0155, L501.9520, L506.0250, L500.4050, L503.0105, L503.6550, L100.0100, L3300.8200, L3100.5440 #### [facility] [address] [place], [address] IG% 0.200 Normal 0.0-0.9 [facility] Comment on above: Result Comment: IG% - Immature Granulocytes (promyelocytes, myelocytes and metamyelocytes) > 1% indicates that a LEFT SHIFT is Present. Performed By: #### L 3300.0960, L500.4100, L503.6075, L4600.0155, L501.9520, L506.0250, L500.4050, L503.0105, L503.6550, L100.0100, L3300.8200, L3100.5440 #### [facility] [address] [place], [address] Lymphocytes/100 WBC (Bld) 35.9 % Normal 19-41 [facility] Comment on above: Performed By: #### L 3300.0960, L500.4100, L503.6075, L4600.0155, L501.9520, L506.0250, L500.4050, L503.0105, L503.6550, L100.0100, L3300.8200, L3100.5440 #### [facility] [address] [place], [address] MCH (RBC) [Entitic mass] 29.0 pg Normal 27.0-32.0 [facility] Comment on above: Performed By: #### L 3300.0960, L500.4100, L503.6075, L4600.0155, L501.9520, L506.0250, L500.4050, L503.0105, L503.6550, L100.0100, L3300.8200, L3100.5440 #### [facility] [address] [place], [address] MCHC (RBC) [Mass/Vol] 32.8 g/dL Normal 32-36 [facility] Comment on above: Performed By: #### L 3300.0960, L500.4100, L503.6075, L4600.0155, L501.9520, L506.0250, L500.4050, L503.0105, L503.6550, L100.0100, L3300.8200, L3100.5440 #### [facility] [address] [place], [address] MCV (RBC) [Entitic vol] 88.6 fL Normal 81-99 [facility] Comment on above: Performed By: #### L 3300.0960, L500.4100, L503.6075, L4600.0155, L501.9520, L506.0250, L500.4050, L503.0105, L503.6550, L100.0100, L3300.8200, L3100.5440 #### [facility] [address] [place], [address] Monocytes/100 WBC (Bld) 6.9 % Normal 0-10 [facility] Comment on above: Performed By: #### L 3300.0960, L500.4100, L503.6075, L4600.0155, L501.9520, L506.0250, L500.4050, L503.0105, L503.6550, L100.0100, L3300.8200, L3100.5440 #### [facility] [address] [place], [address] Neutrophils/100 WBC (Bld) 54.5 % Normal 47-70 [facility] Comment on above: Performed By: #### L 3300.0960, L500.4100, L503.6075, L4600.0155, L501.9520, L506.0250, L500.4050, L503.0105, L503.6550, L100.0100, L3300.8200, L3100.5440 #### [facility] [address] [facility] [place], [address] Nucleated RBC (Bld) [#/Vol] 0 10*3/uL Normal 0-5 [facility] Comment on above: Performed By: #### L 3300.0960, L500.4100, L503.6075, L4600.0155, L501.9520, L506.0250, L500.4050, L503.0105, L503.6550, L100.0100, L3300.8200, L3100.5440 #### [facility] [address] [place], [address] Platelet mean volume (Bld) [Entitic vol] 10.1 fL Normal 6.2-12.0 [facility] Comment on above: Performed By: #### L 3300.0960, L500.4100, L503.6075, L4600.0155, L501.9520, L506.0250, L500.4050, L503.0105, L503.6550, L100.0100, L3300.8200, L3100.5440 #### [facility] [address] [place], [address] Platelets (Bld) [#/Vol] 378 10*3/uL Normal 150-450 [facility] Comment on above: Performed By: #### L 3300.0960, L500.4100, L503.6075, L4600.0155, L501.9520, L506.0250, L500.4050, L503.0105, L503.6550, L100.0100, L3300.8200, L3100.5440 #### [facility] [address] [place], [address] RBC (Bld) [#/Vol] 4.55 10*6/uL Normal 4.2-5.4 [facility] Comment on above: Performed By: #### L 3300.0960, L500.4100, L503.6075, L4600.0155, L501.9520, L506.0250, L500.4050, L503.0105, L503.6550, L100.0100, L3300.8200, L3100.5440 #### [facility] [address] [place], [place], [phone] (295) RDW SD 42.2 fl Normal 35.1-43.9 [facility] Comment on above: Performed By: #### L 3300.0960, L500.4100, L503.6075, L4600.0155, L501.9520, L506.0250, L500.4050, L503.0105, L503.6550, L100.0100, L3300.8200, L3100.5440 #### [facility] [address] [place], [address] WBC (Bld) [#/Vol] 6.1 10*3/uL Normal 4.4-11.0 [facility] Comment on above: Performed By: #### L 3300.0960, L500.4100, L503.6075, L4600.0155, L501.9520, L506.0250, L500.4050, L503.0105, L503.6550, L100.0100, L3300.8200, L3100.5440 #### [facility] [address] [place], [place], [address] Comprehensive Metabolic Prof ilon 07-11-2023 Albumin [Mass/Vol] 3.9 g/dL Normal 3.2-5.0 [facility] Comment on above: Order Comment: N Performed By: #### L 3300.0960, L500.4100, L503.6075, L4600.0155, L501.9520, L506.0250, L500.4050, L503.0105, L503.6550, L100.0100, L3300.8200, L3100.5440 #### [facility] [address] [place], [place], [address] Albumin/Globulin [Mass ratio] 1.1 {ratio} Normal 0.9-2.4 [facility] Comment on above: Order Comment: N Performed By: #### L 3300.0960, L500.4100, L503.6075, L4600.0155, L501.9520, L506.0250, L500.4050, L503.0105, L503.6550, L100.0100, L3300.8200, L3100.5440 #### [facility] [address] [place], [place], [address] ALK P 89 U/L Normal 45-117 [facility] Comment on above: Order Comment: N Performed By: #### L 3300.0960, L500.4100, L503.6075, L4600.0155, L501.9520, L506.0250, L500.4050, L503.0105, L503.6550, L100.0100, L3300.8200, L3100.5440 #### [facility] [address] [place], [place], [id number] ALT [Catalytic activity/Vol] 39 U/L Normal 13-56 [facility] Comment on above: Order Comment: N Performed By: #### L 3300.0960, L500.4100, L503.6075, L4600.0155, L501.9520, L506.0250, L500.4050, L503.0105, L503.6550, L100.0100, L3300.8200, L3100.5440 #### [facility] [address] [place], [address] AST [Catalytic activity/Vol] 25 U/L Normal 15-37 [facility] Comment on above: Order Comment: N Performed By: #### L 3300.0960, L500.4100, L503.6075, L4600.0155, L501.9520, L506.0250, L500.4050, L503.0105, L503.6550, L100.0100, L3300.8200, L3100.5440 #### [facility] [address] [place], [address] Bilirubin [Mass/Vol] 0.40 mg/dL Normal 0.20-1.00 [facility] Comment on above: Order Comment: N Result Comment: For patients on eltrombopag therapy, use of Dimension Hart TBIL is not recommended. Performed By: #### L 3300.0960, L500.4100, L503.6075, L4600.0155, L501.9520, L506.0250, L500.4050, L503.0105, L503.6550, L100.0100, L3300.8200, L3100.5440 #### [facility] [address] [place], [address] BUN/CRE 17.7 RATIO Normal 10-20 [facility] Comment on above: Order Comment: N Performed By: #### L 3300.0960, L500.4100, L503.6075, L4600.0155, L501.9520, L506.0250, L500.4050, L503.0105, L503.6550, L100.0100, L3300.8200, L3100.5440 #### [facility] [address] [place], [address] CA,Total 9.2 mg/dL Normal 8.5-10.1 [facility] Comment on above: Order Comment: N Performed By: #### L 3300.0960, L500.4100, L503.6075, L4600.0155, L501.9520, L506.0250, L500.4050, L503.0105, L503.6550, L100.0100, L3300.8200, L3100.5440 #### [facility] [address] [place], [place], [id number] (365) Chloride [Moles/Vol] 105 mmol/L Normal 98-107 [facility] Comment on above: Order Comment: N Performed By: #### L 3300.0960, L500.4100, L503.6075, L4600.0155, L501.9520, L506.0250, L500.4050, L503.0105, L503.6550, L100.0100, L3300.8200, L3100.5440 #### [facility] [address] [place], [place], [phone] (564) CO2 [Moles/Vol] 26.0 mmol/L Normal 21.0-32.0 [facility] Comment on above: Order Comment: N Performed By: #### L 3300.0960, L500.4100, L503.6075, L4600.0155, L501.9520, L506.0250, L500.4050, L503.0105, L503.6550, L100.0100, L3300.8200, L3100.5440 #### [facility] [address] [place], [place], [phone] (834) Creatinine [Mass/Vol] 0.62 mg/dL Normal 0.55-1.02 [facility] Comment on above: Order Comment: N Result Comment: The validity of the calculated GFR GFRAA in patients over 70 years has not been determined. Clinical correlation is essential. Performed By: #### L 3300.0960, L500.4100, L503.6075, L4600.0155, L501.9520, L506.0250, L500.4050, L503.0105, L503.6550, L100.0100, L3300.8200, L3100.5440 #### [facility] [address] [place], [place], [id number] EST GFR - AA 140 mL/min Normal >60 [facility] Comment on above: Order Comment: N Result Comment: Afri can Swiss GFR Calc Performed By: #### L 3300.0960, L500.4100, L503.6075, L4600.0155, L501.9520, L506.0250, L500.4050, L503.0105, L503.6550, L100.0100, L3300.8200, L3100.5440 #### [facility] [address] [place], [place], [id number] GAP 7 Normal 5-15 [facility] Comment on above: Order Comment: N Performed By: #### L 3300.0960, L500.4100, L503.6075, L4600.0155, L501.9520, L506.0250, L500.4050, L503.0105, L503.6550, L100.0100, L3300.8200, L3100.5440 #### [facility] [address] [place], [address] GFR/1.73 sq M.predicted among non-blacks MDRD (S/P/Bld) [Vol rate/Area] 116 mL/min/{1.73_m2} Normal >60 [facility] Comment on above: Order Comment: N Result Comment: Non- GFR Calc Performed By: #### L 3300.0960, L500.4100, L503.6075, L4600.0155, L501.9520, L506.0250, L500.4050, L503.0105, L503.6550, L100.0100, L3300.8200, L3100.5440 #### [facility] [address] [place], [address] Globulin (S) [Mass/Vol] 3.6 g/dL Normal 2.2-4.2 [facility] Comment on above: Order Comment: N Performed By: #### L 3300.0960, L500.4100, L503.6075, L4600.0155, L501.9520, L506.0250, L500.4050, L503.0105, L503.6550, L100.0100, L3300.8200, L3100.5440 #### [facility] [address] [facility] [place], [place], [phone] (372) Glucose [Mass/Vol] 94 mg/dL Normal 74-106 [facility] Comment on above: Order Comment: N Performed By: #### L 3300.0960, L500.4100, L503.6075, L4600.0155, L501.9520, L506.0250, L500.4050, L503.0105, L503.6550, L100.0100, L3300.8200, L3100.5440 #### [facility] [address] [place], [place], [phone] (147) Potassium [Moles/Vol] 3.4 mmol/L Low 3.5-5.1 [facility] Comment on above: Order Comment: N Performed By: #### L 3300.0960, L500.4100, L503.6075, L4600.0155, L501.9520, L506.0250, L500.4050, L503.0105, L503.6550, L100.0100, L3300.8200, L3100.5440 #### [facility] [address] [place], [place], [phone] Sodium [Moles/Vol] 138 mmol/L Normal 136-145 [facility] Comment on above: Order Comment: N Performed By: #### L 3300.0960, L500.4100, L503.6075, L4600.0155, L501.9520, L506.0250, L500.4050, L503.0105, L503.6550, L100.0100, L3300.8200, L3100.5440 #### [facility] [address] [place], [address] T PROT 7.5 g/dL Normal 6.4-8.2 [facility] Comment on above: Order Comment: N Performed By: #### L 3300.0960, L500.4100, L503.6075, L4600.0155, L501.9520, L506.0250, L500.4050, L503.0105, L503.6550, L100.0100, L3300.8200, L3100.5440 #### [facility] [address] [place], [place], [phone] Urea nitrogen [Mass/Vol] 11 mg/dL Normal 7-18 [facility] Comment on above: Order Comment: N Performed By: #### L 3300.0960, L500.4100, L503.6075, L4600.0155, L501.9520, L506.0250, L500.4050, L503.0105, L503.6550, L100.0100, L3300.8200, L3100.5440 #### [facility] [address] [place], [place], [phone] Determination of erythrocyte mean corpuscular volume (MCV)Ordered By: Jenny Bergeron on 07-11-2023 MCV (RBC) [Entitic vol] 88.6 fL 81-99 [facility] Erythrocyte distribution wid th ratioOrdered By: Jenny Bergeron on 07-11-2023 Erythrocyte distribution width (RBC) [Ratio] 13.0 % 11.6-14.6 [facility] Erythrocyte distribution wid th standard deviationOrdered By: Jenny Bergeron on 07-11-2023 Erythrocyte distribution width (RBC) [Entitic vol] 42.2 fL 35.1-43.9 [facility] Ferritinon 07-11-2023 Ferritin [Mass/Vol] 59 ng/mL Normal 8-252 [facility] Comment on above: Order Comment: N Performed By: #### L 3300.0960, L500.4100, L503.6075, L4600.0155, L501.9520, L506.0250, L500.4050, L503.0105, L503.6550, L100.0100, L3300.8200, L3100.5440 #### [facility] [address] [place], [place], [phone] Folates, (Folic Acid)on 06-22 FOLATES 17.60 ng/mL Normal 3.1-55.4 [facility] Comment on above: Order Comment: N Result Comment: Slig ht Hemolysis, Result may be falsely increased. Performed By: #### L 3300.0960, L500.4100, L503.6075, L4600.0155, L501.9520, L506.0250, L500.4050, L503.0105, L503.6550, L100.0100, L3300.8200, L3100.5440 #### [facility] [address] [place], [place], [phone] Hematocrit Auto (Bld) [Volum e fraction]Ordered By: eJnny Bergeron on 07-11-2023 Hematocrit (Bld) [Volume fraction] 40.3 % 37-47 [facility] Immature granulocytes/100 WB C Auto (Bld)Ordered By: Jenny Bergeron on 07-11-2023 Immature granulocytes/100 WBC (Bld) 0.200 % 0.0-0.9 [facility] Comment on above: IG% - Immature Granu locytes (promyelocytes, myelocytes and metamyelocytes) > 1% indicates that a LEFT SHIFT is Present. Iron Binding Capacity,Totalo n 07-11-2023 TIBC 345 ug/dL Normal 250-450 [facility] Comment on above: Order Comment: N Performed By: #### L 3300.0960, L500.4100, L503.6075, L4600.0155, L501.9520, L506.0250, L500.4050, L503.0105, L503.6550, L100.0100, L3300.8200, L3100.5440 #### [facility] [address] [place], [place], [id number] Laboratory - Chemistry and C hemistry - challengeOrdered By: Jenny Bergeron on 07-11-2023 Albumin/Globulin [Mass ratio] 1.1 {ratio} 0.9-2.4 [facility] ALP [Catalytic activity/Vol] 89 U/L 45-117 [facility] ALT [Catalytic activity/Vol] 39 U/L 13-56 [facility] Cholesterol in HDL [Mass/Vol] 53 mg/dL >40 [facility] Comment on above: The drugs N-Acetylcy steine and Metamizole may falsely depress this assay. Reference Range HDL <40 mg/dL Low HDL Cholesterol HDL >or= 60 mg/dL High HDL Cholesterol Cholesterol in LDL [Mass/Vol] 175 mg/dL 0-130 [facility] CO2 [Moles/Vol] 26.0 mmol/L 21.0-32.0 [facility] Cobalamin (Vitamin B12) [Mass/Vol] 443 pg/mL 211-911 [facility] Ferritin [Mass/Vol] 59 ng/mL 8-252 [facility] Globulin (S) [Mass/Vol] 3.6 g/dL 2.2-4.2 [facility] Urea nitrogen/Creatinine [Mass ratio] 17.7 mg/mg 10-20 [facility] Laboratory - Hematology and Cell countsOrdered By: Jenny Bergeron on 07-11-2023 MCH (RBC) [Entitic mass] 29.0 pg 27.0-32.0 [facility] MCHC (RBC) [Mass/Vol] 32.8 g/dL 32-36 [facility] Nucleated RBC/100 WBC (Bld) [Ratio] 0 % 0-5 [facility] Platelet mean volume (Bld) [Entitic vol] 10.1 fL 6.2-12.0 [facility] Platelets (Bld) [#/Vol] 378 10*3/uL 150-450 [facility] Lipid Profileon 07-11-2023 Cholesterol [Mass/Vol] 278 mg/dL High 200 [facility] Comment on above: Order Comment: N Result Comment: <200 mg/dL Desirable 200-240 mg/dL Borderline >240 mg/dL High Risk Performed By: #### L 3300.0960, L500.4100, L503.6075, L4600.0155, L501.9520, L506.0250, L500.4050, L503.0105, L503.6550, L100.0100, L3300.8200, L3100.5440 #### [facility] [address] [place], [address] Cholesterol in HDL [Mass/Vol] 53 mg/dL Normal [facility] Comment on above: Order Comment: N Result Comment: The drugs N-Acetylcysteine and Metamizole may falsely depress this assay. Reference Range HDL <40 mg/dL Low HDL Cholesterol HDL >or= 60 mg/dL High HDL Cholesterol Performed By: #### L 3300.0960, L500.4100, L503.6075, L4600.0155, L501.9520, L506.0250, L500.4050, L503.0105, L503.6550, L100.0100, L3300.8200, L3100.5440 #### [facility] [address] [place], [address] Cholesterol in LDL [Mass/Vol] 175 mg/dL High 0-130 [facility] Comment on above: Order Comment: N Performed By: #### L 3300.0960, L500.4100, L503.6075, L4600.0155, L501.9520, L506.0250, L500.4050, L503.0105, L503.6550, L100.0100, L3300.8200, L3100.5440 #### [facility] [address] [place], [place], [phone] Cholesterol in VLDL [Mass/Vol] 50 mg/dL High 5-40 [facility] Comment on above: Order Comment: N Performed By: #### L 3300.0960, L500.4100, L503.6075, L4600.0155, L501.9520, L506.0250, L500.4050, L503.0105, L503.6550, L100.0100, L3300.8200, L3100.5440 #### [facility] [address] [place], [place], [id number] Triglyceride [Mass/Vol] 249 mg/dL High [facility] Comment on above: Order Comment: N Result Comment: The drugs N-Acetylcysteine and Metamizole may falsely depress this assay. Serum Triglycerides Reference Interval Normal <150 mg/dL Borderline high 150 - 199 mg/dL High 200 - 499 mg/dL Very High > or = 500 mg/dL Performed By: #### L 3300.0960, L500.4100, L503.6075, L4600.0155, L501.9520, L506.0250, L500.4050, L503.0105, L503.6550, L100.0100, L3300.8200, L3100.5440 #### [facility] [address] [place], [place], [id number] No Panel InformationOrdered By: Jenny Bergeron on 07-11-2023 Centromere B Antibody <0.2 AI 0.0-0.9 [facility] Estimated GFR (MDRD) Amer 140 mL/min >60 [facility] Comment on above: GFR Calc Estimated GFR (MDRD) Non-Af Amer 116 mL/min >60 [facility] Comment on above: Non- GFR Calc Folate 17.60 ng/mL 3.1-55.4 [facility] Comment on above: Slight Hemolysis, Re sult may be falsely increased. KYLIE-1 Antibody <0.2 AI 0.0-0.9 [facility] TOWEL INSPECTOR Antibody 0.2 AI 0.0-0.9 [facility] SM Antibody <0.2 AI 0.0-0.9 [facility] SS-A/Ro IgG Antibody < 0.2 AI 0.0-0.9 [facility] SS-B/La IgG Antibody < 0.2 AI 0.0-0.9 [facility] Total Iron Binding Capacity 345 ug/dL 250-450 [facility] VLDL Cholesterol 50 mg/dL 5-40 [facility] RBC Auto (Bld) [#/Vol]Ordere d By: Jenny Bergeron on 07-11-2023 RBC (Bld) [#/Vol] 4.55 10*6/uL 4.2-5.4 [facility] Serum DNA double strand anti body assay (units/volume)Ordered By: Jenny Bergeron on 07-11-2023 DNA double strand Ab Qn (S) 5 [IU]/mL 0-9 [facility] Comment on above: Negative <5 Equivoca l 5 - 9 Positive >9 Serum Scl-70 antibody assay (units/volume)Ordered By: Jenny Bergeron on 07-11-2023 SCL-70 extractable nuclear Ab Qn (S) <0.2 AI 0.0-0.9 [facility] Serum or plasma calcitriol m easurement (mass/volume)Ordered By: Jenny Bergeron on 07-11-2023 1,25-dihydroxyvitami n D3 [Mass/Vol] 70.1 pg/mL 24.8-81.5 [facility] Comment on above: Performed at: CB - [facility] [address] [id number] Director: Troy Zamora PhD, Phone: [phone] at: - [facility] [address] [id number] Director: Jennifer Boykin MD, Phone: [phone] Serum or plasma calcium charlie urement (mass/volume)Ordered By: Jenny Bergeron on 07-11-2023 Calcium [Mass/Vol] 9.2 mg/dL 8.5-10.1 [facility] Serum or plasma creatinine m easurement (mass/volume)Ordered By: Jenny Bergeron on 07-11-2023 Creatinine [Mass/Vol] 0.62 mg/dL 0.55-1.02 [facility] Comment on above: The validity of the calculated GFR & GFRAA in patients over 70 years has not been determined. Clinical correlation is essential. Serum or plasma thyroid stim ulating hormone (TSH) measurement (units/volume)Ordered By: Jenny Bergeron on 07-11-2023 TSH Qn 1.96 uIU/mL 0.358-3.74 [facility] Serum or plasma urea nitroge n measurement (mass/volume)Ordered By: Jenny Bergeron on 07-11-2023 Urea nitrogen [Mass/Vol] 11 mg/dL 7-18 [facility] Thin prep Papanicolaou smear with manual screeningOrdered By: Jenny Bergeron on 07-11-2023 Thin prep Papanicolaou smear with manual screening 3.9 g/dL 3.2-5.0 [facility] Thin prep Papanicolaou smear with manual screening 25 U/L 15-37 [facility] Thin prep Papanicolaou smear with manual screening 7 5-15 [facility] Thyroid Stim Hormone (TSH)on 07-11-2023 TSH 1.96 uIU/mL Normal 0.358-3.74 [facility] Comment on above: Order Comment: N Performed By: #### L 3300.0960, L500.4100, L503.6075, L4600.0155, L501.9520, L506.0250, L500.4050, L503.0105, L503.6550, L100.0100, L3300.8200, L3100.5440 #### [facility] [address] [place], [address] Vitamin B12on 07-11-2023 Cobalamin (Vitamin B12) [Mass/Vol] 443 pg/mL Normal 211-911 [facility] Comment on above: Performed By: #### L 3300.0960, L500.4100, L503.6075, L4600.0155, L501.9520, L506.0250, L500.4050, L503.0105, L503.6550, L100.0100, L3300.8200, L3100.5440 #### [facility] [place], [address] Absolute lymphocyte countOrd ered By: Jenny Bergeron on 05-05-2022 Lymphocytes Auto (Unsp spec) [#/Vol] 2.04 10*3/uL 0.83-4.51 [facility] Basophil percentageOrdered B y: Jenny Bergeron on 05-05-2022 Basophils/100 WBC (Bld) 0.7 % 0-1 [facility] Bilirubin [Mass/Vol] 0.50 mg/dL 0.20-1.00 [facility] Comment on above: For patients on eltr ombopag therapy, use of Dimension Hart TBIL is not recommended. Chloride [Moles/Vol] 105 mmol/L 98-107 [facility] Cholesterol [Mass/Vol] 190 mg/dL <200 [facility] Comment on above: <200 mg/dL Desirable 200-240 mg/dL Borderline >240 mg/dL High Risk Eosinophils/100 WBC (Bld) 2.3 % 0-5 [facility] Glucose [Mass/Vol] 84 mg/dL 74-106 [facility] Neutrophils (Bld) [#/Vol] 3.1 10*3/uL 2.0-7.7 [facility] Neutrophils/100 WBC (Bld) 53.4 % 47-70 [facility] Potassium [Moles/Vol] 4.1 mmol/L 3.5-5.1 [facility] Protein [Mass/Vol] 7.4 g/dL 6.4-8.2 [facility] Sodium [Moles/Vol] 141 mmol/L 136-145 [facility] Triglyceride [Mass/Vol] 97 mg/dL <199 [facility] Comment on above: The drugs N-Acetylcy steine and Metamizole may falsely depress this assay.Serum Triglycerides Reference Interval Normal <150 mg/dL Borderline high 150 - 199 mg/dL High 200 - 499 mg/dL Very High > or = 500 mg/dL WBC (Bld) [#/Vol] 5.7 10*3/uL 4.4-11.0 [facility] Blood erythrocytes count (nu mber/volume)Ordered By: Jenny Bergeron on 05-05-2022 RBC (Bld) [#/Vol] 4.94 10*6/uL 4.2-5.4 [facility] Blood hemoglobin measurement (mass/volume)Ordered By: Jenny Bergeron on 05-05-2022 Hemoglobin (Bld) [Mass/Vol] 14.0 g/dL 12.0-15.0 [facility] Blood lymphocytes/100 leukoc ytesOrdered By: Jenny Bergeron on 05-05-2022 Lymphocytes/100 WBC (Bld) 35.7 % 19-41 [facility] Blood monocytes/100 leukocyt esOrdered By: Jenny Bergeron on 05-05-2022 Monocytes/100 WBC (Bld) 7.5 % 0-10 [facility] Blood platelet mean volumeOr dered By: Jenny Bergeron on 05-05-2022 Platelet mean volume (Bld) [Entitic vol] 10.2 fL 6.2-12.0 [facility] Determination of erythrocyte mean corpuscular volume (MCV)Ordered By: Jenny Bergeron on 05-05-2022 MCV (RBC) [Entitic vol] 87.4 fL 81-99 [facility] Hematocrit Auto (Bld) [Volum e fraction]Ordered By: Jenny Bergeron on 05-05-2022 Hematocrit (Bld) [Volume fraction] 43.2 % 37-47 [facility] - Chemistry and C hemistry - challengeOrdered By: Jenny Bergeron on 05-05-2022 ALP [Catalytic activity/Vol] 112 U/L 45-117 [facility] ALT [Catalytic activity/Vol] 32 U/L 13-56 [facility] CO2 [Moles/Vol] 27.0 mmol/L 21.0-32.0 [facility] Globulin (S) [Mass/Vol] 3.6 g/dL 2.2-4.2 [facility] Urea nitrogen/Creatinine [Mass ratio] 18.2 mg/mg 10-20 [facility] - Hematology and Cell countsOrdered By: Jenny Bergeron on 05-05-2022 Erythrocyte distribution width (RBC) [Entitic vol] 41.1 fL 35.1-43.9 [facility] Erythrocyte distribution width (RBC) [Ratio] 13.0 % 11.6-14.6 [facility] Immature granulocytes/100 WBC (Bld) 0.400 % 0.0-0.9 [facility] Comment on above: IG% - Immature Granu locytes (promyelocytes, myelocytes and metamyelocytes) > 1% indicates that a LEFT SHIFT is Present. MCH (RBC) [Entitic mass] 28.3 pg 27.0-32.0 [facility] Nucleated RBC/100 WBC (Bld) [Ratio] 0 % 0-5 [facility] MCHC Auto (RBC) [Mass/Vol]Or dered By: Jenny Bergeron on 05-05-2022 MCHC (RBC) [Mass/Vol] 32.4 g/dL 32-36 [facility] No Panel InformationOrdered By: Jenny Bergeron on 05-05-2022 Estimated GFR (MDRD) Amer 146 mL/min >60 [facility] Comment on above: GFR Calc Estimated GFR (MDRD) Non-Af Amer 120 mL/min >60 [facility] Comment on above: Non- GFR Calc Platelets bldOrdered By: Jerry Bergeron on 05-05-2022 Platelets (Bld) [#/Vol] 353 10*3/uL 150-450 [facility] Serum or plasma albumin charlie urement (mass/volume)Ordered By: Jenny Bergeron on 05-05-2022 Albumin [Mass/Vol] 3.8 g/dL 3.2-5.0 [facility] Serum or plasma albumin/glob ulin mass ratioOrdered By: Jenny Bergeron on 05-05-2022 Albumin/Globulin [Mass ratio] 1.1 {ratio} 0.9-2.4 [facility] Serum or plasma calcium charlie urement (mass/volume)Ordered By: Jenny Bergeron on 05-05-2022 Calcium [Mass/Vol] 9.5 mg/dL 8.5-10.1 [facility] Serum or plasma cholesterol in HDL measurement (mass/volume)Ordered By: Jenny Bergeron on 05-05-2022 Cholesterol in HDL [Mass/Vol] 60 mg/dL >40 [facility] Comment on above: The drugs N-Acetylcy steine and Metamizole may falsely depress this assay. Reference Range HDL <40 mg/dL Low HDL Cholesterol HDL >or= 60 mg/dL High HDL Cholesterol Serum or plasma cholesterol in VLDL measurement (mass/volume)Ordered By: Jenny Bergeron on 05-05-2022 Cholesterol in VLDL [Mass/Vol] 19 mg/dL 5-40 [facility] Serum or plasma creatinine m easurement (mass/volume)Ordered By: Jenny Bergeron on 05-05-2022 Creatinine [Mass/Vol] 0.61 mg/dL 0.55-1.02 [facility] Comment on above: The validity of the calculated GFR & GFRAA in patients over 70 years has not been determined. Clinical correlation is essential. Serum or plasma low density lipoprotein (LDL) cholesterol measurement (mass/volume)Ordered By: Jenny Bergeron on 05-05-2022 Cholesterol in LDL [Mass/Vol] 111 mg/dL 0-130 [facility] Serum or plasma urea nitroge n measurement (mass/volume)Ordered By: Jenny Bergeron on 05-05-2022 Urea nitrogen [Mass/Vol] 11 mg/dL 7-18 [facility] Thin prep Papanicolaou smear with manual screeningOrdered By: Jenny Bergeron on 05-05-2022 Thin prep Papanicolaou smear with manual screening 15 U/L 15-37 [facility] Thin prep Papanicolaou smear with manual screening 9 5-15 [facility] OB Biophysical profile (w/o NST)on 07-06-2021 OB Biophysical profile (w/o NST) Indication ======== Suspected Problem with Growth, Class I Obesity (BMI 30-34.9), Hyperemesis, Diabetes Mellitus, Gestational- Diet Controlled History ====== General History Height 160 cm Height (ft) 5 ft Height (in) 3 in Previous Outcomes 2 Para 0 Abortions (A) 1 Miscarriages 1 Maternal Assessment Height 160 cm Height (ft) 5 ft Height (in) 3 in Weight 83 kg Weight (lb) 184 lb Weight gain 0 kg Weight gain (lb) 0 lb BMI 32.59 kg/m? Physical Exam Initial weight (lb) 184 lb ========= [place] . Number of fetuses: 1 Dating ====== LMP on: 12/07/2020 Cycle: Very certain LMP, regular cycle GA by LMP 30 w + 1 d WESLEY by LMP: 09/13/2021 Ultrasound examination on: 07/06/2021 GA by U/S based upon: AC, BPD, Femur, HC GA by U/S 30 w + 0 d WESLEY by U/S: 09/14/2021 Assigned: based on the LMP, selected on 04/19/2021 Assigned GA 30 w + 1 d Assigned WESLEY: 09/13/2021 Growth Overview Exam date GA BPD (mm) HC (mm) AC (mm) FL (mm) HL (mm) EFW (g) 04/19/2021 19w 0d 41.6 33% 157.1 24% 138.4 55% 30 53% 28.5 43% 278 55% 07/06/2021 30w 1d 72.7 13% 273.6 11% 260.8 48% 59 54% 1545 42% Impression ========= BMI 33 Abnormal one hour and no 3 hour testing. She has hyperemesis and is checking blood sugars which are so far mostly normal. -Normal interval growth -No malformations were identified on a limited survey The patient is aware of the above information Thank you allowing us to participate in the care of your patient Follow-up ======== Follow-up as clinically indicated based on diabetic control. General Evaluation Cardiac activity present. FHR 132 bpm. movements: visualized. Presentation: breech Placenta: Placental site: posterior Umbilical cord: Cord vessels: 3 vessel cord Amniotic fluid: Amount of AF: normal amount. MVP 3.6 cm. YINA 10.2 cm. Q1 3.3 cm, Q2 3.6 cm, Q3 0.7 cm, Q4 2.6 cm Biometry Standard BPD 72.7 mm 29w 1d 13% Hadlock OFD 98.7 mm 53% INTERGROWTH-21st HC 273.6 mm 29w 6d 11% Hadlock Cerebellum tr 36.2 mm 30w 0d 29% Hill AC 260.8 mm 30w 2d 48% Hadlock Femur 59.0 mm 30w 5d 54% Hadlock HC / AC 1.05 EFW 1,545 g 29w 6d 42% Hadlock EFW (lb) 3 lb EFW (oz) 6 oz EFW by: Hadlock ([id number]) [employer]er 4.1 mm Head / Face / Neck Cephalic index 0.74 6% Nicolaides Extremities / Bony Struc FL / BPD 0.81 FL / HC 0.22 FL / AC 0.23 Other Structures FHR 132 bpm Anatomy Cranium: Normal Lateral ventricles: Normal Midline falx: Normal Cavum septi pellucidi: Normal Cerebellum: Normal Cisterna magna: Normal Head / Neck Rt lateral ventricle: Normal Lt lateral ventricle: Normal Thalami: Normal Cerebellar lobes: Normal 4-chamber view: Normal 3-vessel view: Normal Heart / Thorax Cardiac axis: Normal Stomach: Normal Kidneys: Normal Bladder: visualized Abdomen Stomach: correct situs Rt kidney: Normal Lt kidney: Normal Large bowel: Normal sex: female Wants to know sex: yes Biophysical Profile 2: breathing movements 2: Gross body movements 2: tone 2: Amniotic fluid volume 8/8 Biophysical profile score Maternal Structures Uterus / Cervix Uterus: Normal Cervix: Not visualized Ovaries / Tubes / Adnexa Rt ovary: Normal Lt ovary: Normal Method ====== Transabdominal ultrasound examination. View: Suboptimal view: limited by late gestational age Electronically signed by: ISIDRA FISCHER MD Normal [facility] OB Follow up or repeat scano n 07-06-2021 OB Follow up or repeat scan Indication ======== Suspected Problem with Growth, Class I Obesity (BMI 30-34.9), Hyperemesis, Diabetes Mellitus, Gestational- Diet Controlled History ====== General History Height 160 cm Height (ft) 5 ft Height (in) 3 in Previous Outcomes 2 Para 0 Abortions (A) 1 Miscarriages 1 Maternal Assessment Height 160 cm Height (ft) 5 ft Height (in) 3 in Weight 83 kg Weight (lb) 184 lb Weight gain 0 kg Weight gain (lb) 0 lb BMI 32.59 kg/m? Physical Exam Initial weight (lb) 184 lb ========= [place] . Number of fetuses: 1 Dating ====== LMP on: 12/07/2020 Cycle: Very certain LMP, regular cycle GA by LMP 30 w + 1 d WESLEY by LMP: 09/13/2021 Ultrasound examination on: 07/06/2021 GA by U/S based upon: AC, BPD, Femur, HC GA by U/S 30 w + 0 d WESLEY by U/S: 09/14/2021 Assigned: based on the LMP, selected on 04/19/2021 Assigned GA 30 w + 1 d Assigned WESLEY: 09/13/2021 Growth Overview Exam date GA BPD (mm) HC (mm) AC (mm) FL (mm) HL (mm) EFW (g) 04/19/2021 19w 0d 41.6 33% 157.1 24% 138.4 55% 30 53% 28.5 43% 278 55% 07/06/2021 30w 1d 72.7 13% 273.6 11% 260.8 48% 59 54% 1545 42% Impression ========= BMI 33 Abnormal one hour and no 3 hour testing. She has hyperemesis and is checking blood sugars which are so far mostly normal. -Normal interval growth -No malformations were identified on a limited survey The patient is aware of the above information Thank you allowing us to participate in the care of your patient Follow-up ======== Follow-up as clinically indicated based on diabetic control. General Evaluation Cardiac activity present. FHR 132 bpm. movements: visualized. Presentation: breech Placenta: Placental site: posterior Umbilical cord: Cord vessels: 3 vessel cord Amniotic fluid: Amount of AF: normal amount. MVP 3.6 cm. YINA 10.2 cm. Q1 3.3 cm, Q2 3.6 cm, Q3 0.7 cm, Q4 2.6 cm Biometry Standard BPD 72.7 mm 29w 1d 13% Hadlock OFD 98.7 mm 53% INTERGROWTH-21st HC 273.6 mm 29w 6d 11% Hadlock Cerebellum tr 36.2 mm 30w 0d 29% Hill AC 260.8 mm 30w 2d 48% Hadlock Femur 59.0 mm 30w 5d 54% Hadlock HC / AC 1.05 EFW 1,545 g 29w 6d 42% Hadlock EFW (lb) 3 lb EFW (oz) 6 oz EFW by: Hadlock (RDW-OR-BY-FL) [employer] Cleaner 4.1 mm Head / Face / Neck Cephalic index 0.74 6% Nicolaides Extremities / Bony Struc FL / BPD 0.81 FL / HC 0.22 FL / AC 0.23 Other Structures FHR 132 bpm Anatomy Cranium: Normal Lateral ventricles: Normal Midline falx: Normal Cavum septi pellucidi: Normal Cerebellum: Normal Cisterna magna: Normal Head / Neck Rt lateral ventricle: Normal Lt lateral ventricle: Normal Thalami: Normal Cerebellar lobes: Normal 4-chamber view: Normal 3-vessel view: Normal Heart / Thorax Cardiac axis: Normal Stomach: Normal Kidneys: Normal Bladder: visualized Abdomen Stomach: correct situs Rt kidney: Normal Lt kidney: Normal Large bowel: Normal sex: female Wants to know sex: yes Biophysical Profile 2: breathing movements 2: Gross body movements 2: tone 2: Amniotic fluid volume 8/8 Biophysical profile score Maternal Structures Uterus / Cervix Uterus: Normal Cervix: Not visualized Ovaries / Tubes / Adnexa Rt ovary: Normal Lt ovary: Normal Method ====== Transabdominal ultrasound examination. View: Suboptimal view: limited by late gestational age Electronically signed by: ISIDRA FISCHER MD Normal [facility] SARS-CoV-2 (COVID-19) RT-PCR on 04-23-2021 SARS-CoV-2 (COVID-19) RNA STEVE+probe Ql (Unsp spec) Positive Abnormal [facility] Comment on above: Order Comment: Relea se to patient->Automatic [id number]&Nasal swab Result Comment: POSI TIVE: SARS-CoV-2 RNA was detected - Interpretation: A positive result indicates severe acute respiratory syndrome coronavirus 2 (SARS-CoV-2) RNA is present. Clinical correlation with patient history and other diagnostic information is necessary to determine patient infection status. Positive results do not rule out bacterial infection or co-infection with other viruses. - Method: Real-time reverse transcriptase PCR amplification for the qualitative detection of the ORF1 a/b non-structural region that is unique to SARS-CoV-2 and a conserved region in the structural protein envelope E-gene for macedo-Sarbecovirus detection using the Rodrigo SARS-CoV-2 assay on the [employer] Rodrigo [employer] System. - Comment: This test has received FDA Emergency Use Authorization (EUA) and has been verified by [facility]. This test is only authorized for the duration of the public health emergency declaration and the circumstances that exist to justify the authorization of the emergency use of in vitro diagnostic tests for the detection of SARS-CoV-2 virus and/or diagnosis of COVID-19 infection under section 564(b)(1) of the Act, 21 U.S.C. 360bbb-3(b)(1), unless the authorization is terminated or revoked sooner. This test has not been FDA cleared or approved. Results should be used in conjunction with clinical findings, and should not form the sole basis for a diagnosis or treatment decision. - Fact Sheets for this EUA can be found at the following links: For Healthcare Providers: www.fda.gov/media/790873/download For Patients: www.fda.gov/media/433369/download - Reference Value: Negative Performed By: #### C OVID #### [place] [address] SARS-CoV-2 (COVID-19) RT-PCR on 04-22-2021 RODRIGO SARS CoV-2 RT PCR Detected Normal [facility] Comment on above: Order Comment: Relea se to patient->Automatic 15575&Nasal swab Performed By: #### C OVID #### [address] [address] SARS-CoV-2 (COVID-19) RT-PCR on 04-21-2021 Hospitalized? No Normal [facility] Comment on above: Order Comment: Relea se to patient->Automatic [id number]&Nasal swab Performed By: #### C OVID #### [address] [address] ICU? No Normal [facility] Comment on above: Order Comment: Relea se to patient->Automatic 22145&Nasal swab Performed By: #### C OVID #### [address] [address] ? Unknown Normal [facility] Comment on above: Order Comment: Relea se to patient->Automatic 12469&Nasal swab Performed By: #### C OVID #### [address] [address] Resident in congregate care setting? No Normal [facility] Comment on above: Order Comment: Relea se to patient->Automatic 42692&Nasal swab Performed By: #### C OVID #### [address] [address] SARS-CoV-2 (COVID-19) RNA STEVE+probe Ql (Unsp spec) No Normal [facility] Comment on above: Order Comment: Relea se to patient->Automatic 43092&Nasal swab Performed By: #### C OVID #### [address] [address] OB Completed scan + Detailed Anatomyon 04-19-2021 OB Completed scan + Detailed Anatomy Indication ======== Abnormality Suspected, Class I Obesity (BMI 30-34.9) History ====== General History Height 160 cm Height (ft) 5 ft Height (in) 3 in Previous Outcomes 2 Para 0 Abortions (A) 1 Miscarriages 1 Maternal Assessment Height 160 cm Height (ft) 5 ft Height (in) 3 in Weight 83 kg Weight (lb) 184 lb Weight gain 0 kg Weight gain (lb) 0 lb BMI 32.59 kg/m? Physical Exam Initial weight (lb) 184 lb ========= V[place] . Number of fetuses: 1 Dating ====== LMP on: 12/07/2020 Cycle: Very certain LMP, regular cycle GA by LMP 19 w + 0 d WESLEY by LMP: 09/13/2021 Ultrasound examination on: 04/19/2021 GA by U/S based upon: AC, BPD, Femur, HC GA by U/S 19 w + 0 d WESLEY by U/S: 09/13/2021 Assigned: based on the LMP, selected on 04/19/2021 Assigned GA 19 w + 0 d Assigned WESLEY: 09/13/2021 Growth Overview Exam date GA BPD (mm) HC (mm) AC (mm) FL (mm) HL (mm) EFW (g) 04/19/2021 19w 0d 41.6 33% 157.1 24% 138.4 55% 30 53% 28.5 43% 278 55% Impression ========= Ms. Alvarado presents for a targeted anatomic survey for class I obesity. She reports a risk-reducing NIPS. - biometry is consistent with the stated gestational age - Detailed anatomic evaluation of the brain/ventricles, face, heart/outflow tracts and chest anatomy, abdominal organ specific anatomy, number/length/architecture of limbs and detailed evaluation of the umbilical cord and placenta and other anatomy as clinically indicated was performed. - No malformations were identified on this comprehensive survey within limitations of sonographic evaluation at this gestational age. The information was discussed with the patient. Thank you for allowing us to participate in the care of your patient Follow-up ======== Follow-up as clinically indicated. General Evaluation Cardiac activity present. FHR 142 bpm. movements: visualized. Presentation: breech, Variable Placenta: Placental site: posterior, No Previa Seen Umbilical cord: Cord vessels: 3 vessel cord. Insertion site: placental insertion: normal Amniotic fluid: Amount of AF: normal amount Biometry Standard BPD 41.6 mm 18w 4d 33% Hadlock OFD 56.2 mm 48% INTERGROWTH-21st HC 157.1 mm 18w 4d 24% Hadlock Cerebellum tr 19.2 mm 18w 5d 21% Hill Nuchal fold 2.7 mm AC 138.4 mm 19w 2d 55% Hadlock Femur 30.0 mm 19w 2d 53% Hadlock Humerus 28.5 mm 43% Chitty HC / AC 1.14 27% Hadlock EFW 278 g 19w 1d 55% Hadlock EFW (lb) 0 lb EFW (oz) 10 oz EFW by: Hadlock (NNO-UU-NG-FL) [employer] 5.5 mm CM 3.8 mm 20% Nicolaides Head / Face / Neck Cephalic index 0.74 7% Nicolaides Nasal bone: present Extremities / Bony Struc FL / BPD 0.72 87% Hadlock FL / HC 0.19 83% Hadlock FL / AC 0.22 63% Hadlock Other Structures FHR 142 bpm Anatomy Cranium: Normal Lateral ventricles: Normal Choroid plexus: Normal Midline falx: Normal Cavum septi pellucidi: Normal Cerebellum: Normal Cisterna magna: Normal Head / Neck Head size: Normal Head shape: Normal Rt lateral ventricle: Normal Lt lateral ventricle: Normal Rt choroid plexus: Normal Lt choroid plexus: Normal Thalami: Normal Cerebellar lobes: Normal Vermis: Normal Neck: Normal Neck: No neck masses seen Lips: Normal Profile: Normal Nose: Normal Face Nasal bone: present 4-chamber view: Normal RVOT view: Normal LVOT view: Normal 3-vessel view: Normal Heart / Thorax Situs: situs solitus (normal) Aortic arch view: Normal Cardiac position: levocardia (normal) Cardiac axis: Normal Cardiac size: normal (approx. 1/3 of thoracic area) Cardiac proportions: proportioned (normal) Cardiac rhythm: regular (normal) Rt diaphragm: Normal Lt diaphragm: Normal Cord insertion: Normal Stomach: Normal Kidneys: Normal Bladder: Normal Genitals: Normal Abdomen Abdom. wall: Normal Stomach: Stomach size and situs appear normal Rt kidney: Normal Lt kidney: Normal Small bowel: Normal Large bowel: Normal Cervical spine: Normal Thoracic spine: Normal Lumbar spine: Normal Sacral spine: Normal Arms: Normal Hands: normal Legs: Normal Feet: normal Rt upper arm: Normal Rt forearm: Normal Rt hand: Normal Rt fingers: Normal Lt upper arm: Normal Lt forearm: Normal Lt hand: Normal Lt fingers: Normal Rt upper leg: Normal Rt lower leg: Normal Rt foot: Normal Rt toes: Normal Lt upper leg: Normal Lt lower leg: Normal Lt foot: Normal Lt toes: Normal Position of hands: Normal Position of feet: Normal sex: female Wants to know sex: yes Genetic Screen Age 30 yrs Echogenic focus: no Ventriculomegaly: no Nucha (more content not included)... Normal [facility] SARS-CoV-2 (COVID-19) RT-PCR on 04-14-2021 SARS-CoV-2 (COVID-19) RNA STEVE+probe Ql (Unsp spec) Negative Normal [facility] Comment on above: Order Comment: Relea se to patient->Automatic [id number]&Nasal swab Result Comment: NEGA TIVE: SARS-CoV-2 RNA was NOT detected - Interpretation: A negative result indicates severe acute respiratory syndrome coronavirus 2 (SARS-CoV-2) RNA was not detected. Negative results do not preclude SARS-CoV-2 infection and should not be used as the sole basis for patient management decisions. Negative results must be combined with clinical observations, patient history, and epidemiological information. The possibility of a false negative result should be considered if the patient's recent exposures or clinical presentation suggest that SARS-CoV-2 infection is possible, and diagnostic tests for other causes of illness are negative. If SARS-CoV-2 infection is still suspected, re-testing should be considered. - Method: Real-time reverse transcriptase PCR amplification for the qualitative detection of the ORF1 a/b non-structural region that is unique to SARS-CoV-2 and a conserved region in the structural protein envelope E-gene for macedo-Sarbecovirus detection using the Rodrigo SARS-CoV-2 assay on the [employer] Rodrigo 6800 System. - Comment: This test has received FDA Emergency Use Authorization (EUA) and has been verified by [facility] [place]. This test is only authorized for the duration of the public health emergency declaration and the circumstances that exist to justify the authorization of the emergency use of in vitro diagnostic tests for the detection of SARS-CoV-2 virus and/or diagnosis of COVID-19 infection under section 564(b)(1) of the Act, 21 U.S.C. 360bbb-3(b)(1), unless the authorization is terminated or revoked sooner. This test has not been FDA cleared or approved. Results should be used in conjunction with clinical findings, and should not form the sole basis for a diagnosis or treatment decision. - Fact Sheets for this EUA can be found at the following links: For Healthcare Providers: www.[employer]gov/media/504313/download For Patients: www.[employer]gov/media/891621/download - Reference Value: Negative Performed By: #### C OVID #### [place] [address] RODRIGO SARS CoV-2 RT PCR Not detected Normal [facility] Comment on above: Order Comment: Relea se to patient->Automatic [id number]&Nasal swab Performed By: #### C OVID #### [place] [address] SARS-CoV-2 (COVID-19) RT-PCR on 04-13-2021 Hospitalized? No Normal [facility] Comment on above: Order Comment: Relea se to patient->Automatic 19088&Nasal swab Performed By: #### C OVID #### [place] [address] ICU? No Normal [facility] Comment on above: Order Comment: Relea se to patient->Automatic [id number]&Nasal swab Performed By: #### C OVID #### [place] [address] ? Unknown Normal [facility] Comment on above: Order Comment: Relea se to patient->Automatic 16104&Nasal swab Performed By: #### C OVID #### [facility] [address] [place] [address] Resident in congregate care setting? No Normal [facility] Comment on above: Order Comment: Relea se to patient->Automatic 44765&Nasal swab Performed By: #### C OVID #### [facility] [address] [place], [place] [id number] SARS-CoV-2 (COVID-19) RNA STEVE+probe Ql (Unsp spec) No Normal [facility] Comment on above: Order Comment: Relea se to patient->Automatic [id number]&Nasal swab Performed By: #### C OVID #### [facility] [address] [place] [address] SARS-CoV-2 (COVID-19) RT-PCR on 04-08-2021 SARS-CoV-2 (COVID-19) RNA STEVE+probe Ql (Unsp spec) Negative Normal [facility] Comment on above: Order Comment: Relea se to patient->Automatic [id number]&Nasal swab Result Comment: NEGA TIVE: SARS-CoV-2 RNA was NOT detected - Interpretation: A negative result indicates severe acute respiratory syndrome coronavirus 2 (SARS-CoV-2) RNA was not detected. Negative results do not preclude SARS-CoV-2 infection and should not be used as the sole basis for patient management decisions. Negative results must be combined with clinical observations, patient history, and epidemiological information. The possibility of a false negative result should be considered if the patient's recent exposures or clinical presentation suggest that SARS-CoV-2 infection is possible, and diagnostic tests for other causes of illness are negative. If SARS-CoV-2 infection is still suspected, re-testing should be considered. - Method: Real-time reverse transcriptase PCR amplification for the qualitative detection of the ORF1 a/b non-structural region that is unique to SARS-CoV-2 and a conserved region in the structural protein envelope E-gene for macedo-Sarbecovirus detection using the Rodrigo SARS-CoV-2 assay on the [employer] Rodrigo [employer] System. - Comment: This test has received FDA Emergency Use Authorization (EUA) and has been verified by [facility]. This test is only authorized for the duration of the public health emergency declaration and the circumstances that exist to justify the authorization of the emergency use of in vitro diagnostic tests for the detection of SARS-CoV-2 virus and/or diagnosis of COVID-19 infection under section 564(b)(1) of the Act, 21 U.S.C. 360bbb-3(b)(1), unless the authorization is terminated or revoked sooner. This test has not been FDA cleared or approved. Results should be used in conjunction with clinical findings, and should not form the sole basis for a diagnosis or treatment decision. - Fact Sheets for this EUA can be found at the following links: For Healthcare Providers: www.[employer]gov/media/205265/download For Patients: www.[employer]gov/media/587675/download - Reference Value: Negative Performed By: #### C OVID #### [place] [address] RODRIGO SARS CoV-2 RT PCR Not detected Normal [facility] Comment on above: Order Comment: Relea se to patient->Automatic [id number]&Nasal swab Performed By: #### C OVID #### [place] [address] SARS-CoV-2 (COVID-19) RT-PCR on 04-06-2021 Hospitalized? No Normal [facility] Comment on above: Order Comment: Relea se to patient->Automatic 41074&Nasal swab Performed By: #### C OVID #### [place] [address] ICU? No Normal [facility] Comment on above: Order Comment: Relea se to patient->Automatic 98419&Nasal swab Performed By: #### C OVID #### [place] [address] ? Unknown Normal [facility] Comment on above: Order Comment: Relea se to patient->Automatic [id number]&Nasal swab Performed By: #### C OVID #### [facility] [address] [place] [address] Resident in congregate care setting? No Normal [facility] Comment on above: Order Comment: Relea se to patient->Automatic [id number]&Nasal swab Performed By: #### C OVID #### [facility] [address] [place], [place] [id number] SARS-CoV-2 (COVID-19) RNA STEVE+probe Ql (Unsp spec) No Normal [facility] Comment on above: Order Comment: Relea se to patient->Automatic 39962&Nasal swab Performed By: #### C OVID #### [facility] [address] [place] [address] SARS-CoV-2 (COVID-19) RT-PCR on 04-01-2021 SARS-CoV-2 (COVID-19) RNA STEVE+probe Ql (Unsp spec) Negative Normal [facility] Comment on above: Order Comment: Relea se to patient->Automatic 09671&Nasal swab Result Comment: NEGA TIVE: SARS-CoV-2 RNA was NOT detected - Interpretation: A negative result indicates severe acute respiratory syndrome coronavirus 2 (SARS-CoV-2) RNA was not detected. Negative results do not preclude SARS-CoV-2 infection and should not be used as the sole basis for patient management decisions. Negative results must be combined with clinical observations, patient history, and epidemiological information. The possibility of a false negative result should be considered if the patient's recent exposures or clinical presentation suggest that SARS-CoV-2 infection is possible, and diagnostic tests for other causes of illness are negative. If SARS-CoV-2 infection is still suspected, re-testing should be considered. - Method: Real-time reverse transcriptase PCR amplification for the qualitative detection of the ORF1 a/b non-structural region that is unique to SARS-CoV-2 and a conserved region in the structural protein envelope E-gene for macedo-Sarbecovirus detection using the Rodrigo SARS-CoV-2 assay on the [employer] Rodrigo [employer] System. - Comment: This test has received FDA Emergency Use Authorization (EUA) and has been verified by [facility]. This test is only authorized for the duration of the public health emergency declaration and the circumstances that exist to justify the authorization of the emergency use of in vitro diagnostic tests for the detection of SARS-CoV-2 virus and/or diagnosis of COVID-19 infection under section 564(b)(1) of the Act, 21 U.S.C. 360bbb-3(b)(1), unless the authorization is terminated or revoked sooner. This test has not been FDA cleared or approved. Results should be used in conjunction with clinical findings, and should not form the sole basis for a diagnosis or treatment decision. - Fact Sheets for this EUA can be found at the following links: For Healthcare Providers: www.[employer]gov/media/668947/download For Patients: www.[employer]gov/media/450022/download - Reference Value: Negative Performed By: #### C OVID #### [place] [address] RODRIGO SARS CoV-2 RT PCR Not detected Normal [facility] Comment on above: Order Comment: Relea se to patient->Automatic 06373&Nasal swab Performed By: #### C OVID #### [place] [address] SARS-CoV-2 (COVID-19) RT-PCR on 03-31-2021 Hospitalized? No Normal [facility] Comment on above: Order Comment: Relea se to patient->Automatic [id number]&Nasal swab Performed By: #### C OVID #### [place] [address] ICU? No Normal [facility] Comment on above: Order Comment: Relea se to patient->Automatic 62180&Nasal swab Performed By: #### C OVID #### [place] [address] ? Unknown Normal [facility] Comment on above: Order Comment: Relea se to patient->Automatic 07600&Nasal swab Performed By: #### C OVID #### [facility] [address] [place] [address] Resident in congregate care setting? No Normal [facility] Comment on above: Order Comment: Relea se to patient->Automatic 13945&Nasal swab Performed By: #### C OVID #### [facility] [address] [place], [place] [id number] SARS-CoV-2 (COVID-19) RNA STEVE+probe Ql (Unsp spec) No Normal [facility] Comment on above: Order Comment: Relea se to patient->Automatic 68640&Nasal swab Performed By: #### C OVID #### [facility] [address] [place], [place] [id number] SARS-CoV-2 (COVID-19) RT-PCR on 03-25-2021 SARS-CoV-2 (COVID-19) RNA STEVE+probe Ql (Unsp spec) Negative Normal [facility] Comment on above: Order Comment: Relea se to patient->Automatic 16948&Nasal swab Result Comment: NEGA TIVE: SARS-CoV-2 RNA was NOT detected - Interpretation: A negative result indicates severe acute respiratory syndrome coronavirus 2 (SARS-CoV-2) RNA was not detected. Negative results do not preclude SARS-CoV-2 infection and should not be used as the sole basis for patient management decisions. Negative results must be combined with clinical observations, patient history, and epidemiological information. The possibility of a false negative result should be considered if the patient's recent exposures or clinical presentation suggest that SARS-CoV-2 infection is possible, and diagnostic tests for other causes of illness are negative. If SARS-CoV-2 infection is still suspected, re-testing should be considered. - Method: Real-time reverse transcriptase PCR amplification for the qualitative detection of the ORF1 a/b non-structural region that is unique to SARS-CoV-2 and a conserved region in the structural protein envelope E-gene for macedo-Sarbecovirus detection using the Rodrigo SARS-CoV-2 assay on the [employer] System. - Comment: This test has received FDA Emergency Use Authorization (EUA) and has been verified by [facility]. This test is only authorized for the duration of the public health emergency declaration and the circumstances that exist to justify the authorization of the emergency use of in vitro diagnostic tests for the detection of SARS-CoV-2 virus and/or diagnosis of COVID-19 infection under section 564(b)(1) of the Act, 21 U.S.C. 360bbb-3(b)(1), unless the authorization is terminated or revoked sooner. This test has not been FDA cleared or approved. Results should be used in conjunction with clinical findings, and should not form the sole basis for a diagnosis or treatment decision. - Fact Sheets for this EUA can be found at the following links: For Healthcare Providers: [employer]gov/media/319624/download For Patients: www.[employer]gov/media/299774/download - Reference Value: Negative Performed By: #### C OVID #### [place] [address] RODRIGO SARS CoV-2 RT PCR Not detected Normal [facility] Comment on above: Order Comment: Relea se to patient->Automatic 23200&Nasal swab Performed By: #### C OVID #### [place] [address] SARS-CoV-2 (COVID-19) RT-PCR on 03-24-2021 Hospitalized? No Normal [facility] Comment on above: Order Comment: Relea se to patient->Automatic 77004&Nasal swab Performed By: #### C OVID #### [place] [address] ICU? No Normal [facility] Comment on above: Order Comment: Relea se to patient->Automatic [id number]&Nasal swab Performed By: #### C OVID #### [place] [address] ? Unknown Normal [facility] Comment on above: Order Comment: Relea se to patient->Automatic 50631&Nasal swab Performed By: #### C OVID #### [facility] [address] [place] [address] Resident in congregate care setting? No Normal [facility] Comment on above: Order Comment: Relea se to patient->Automatic 70775&Nasal swab Performed By: #### C OVID #### [facility] [address] [place], [place] [id number] SARS-CoV-2 (COVID-19) RNA STEVE+probe Ql (Unsp spec) No Normal [facility] Comment on above: Order Comment: Relea se to patient->Automatic [id number]&Nasal swab Performed By: #### C OVID #### [facility] [address] [place], [place] [id number] SARS-CoV-2 (COVID-19) RT-PCR on 03-18-2021 SARS-CoV-2 (COVID-19) RNA STEVE+probe Ql (Unsp spec) Negative Normal [facility] Comment on above: Order Comment: Relea se to patient->Automatic [id number]&Nasal swab Result Comment: NEGA TIVE: SARS-CoV-2 RNA was NOT detected - Interpretation: A negative result indicates severe acute respiratory syndrome coronavirus 2 (SARS-CoV-2) RNA was not detected. Negative results do not preclude SARS-CoV-2 infection and should not be used as the sole basis for patient management decisions. Negative results must be combined with clinical observations, patient history, and epidemiological information. The possibility of a false negative result should be considered if the patient's recent exposures or clinical presentation suggest that SARS-CoV-2 infection is possible, and diagnostic tests for other causes of illness are negative. If SARS-CoV-2 infection is still suspected, re-testing should be considered. - Method: Real-time reverse transcriptase PCR amplification for the qualitative detection of the ORF1 a/b non-structural region that is unique to SARS-CoV-2 and a conserved region in the structural protein envelope E-gene for macedo-Sarbecovirus detection using the Rodrigo SARS-CoV-2 assay on the [employer] Rodrigo 6800 System. - Comment: This test has received FDA Emergency Use Authorization (EUA) and has been verified by [facility]. This test is only authorized for the duration of the public health emergency declaration and the circumstances that exist to justify the authorization of the emergency use of in vitro diagnostic tests for the detection of SARS-CoV-2 virus and/or diagnosis of COVID-19 infection under section 564(b)(1) of the Act, 21 U.S.C. 360bbb-3(b)(1), unless the authorization is terminated or revoked sooner. This test has not been FDA cleared or approved. Results should be used in conjunction with clinical findings, and should not form the sole basis for a diagnosis or treatment decision. - Fact Sheets for this EUA can be found at the following links: For Healthcare Providers: www.[employer]gov/media/074257/download For Patients: www.[employer]gov/media/838851/download - Reference Value: Negative Performed By: #### C OVID #### [place] [address] RODRIGO SARS CoV-2 RT PCR Not detected Normal [facility] Comment on above: Order Comment: Relea se to patient->Automatic [id number]&Nasal swab Performed By: #### C OVID #### [place] [address] SARS-CoV-2 (COVID-19) RT-PCR on 03-17-2021 Hospitalized? No Normal [facility] Comment on above: Order Comment: Relea se to patient->Automatic 56466&Nasal swab Performed By: #### C OVID #### [place] [address] ICU? No Normal [facility] Comment on above: Order Comment: Relea se to patient->Automatic 81223&Nasal swab Performed By: #### C OVID #### [place] [address] ? Unknown Normal [facility] Comment on above: Order Comment: Relea se to patient->Automatic [id number]&Nasal swab Performed By: #### C OVID #### [facility] [address] [place] [address] Resident in congregate care setting? No Normal [facility] Comment on above: Order Comment: Relea se to patient->Automatic 47913&Nasal swab Performed By: #### C OVID #### [facility] [address] [place], [place] [id number] SARS-CoV-2 (COVID-19) RNA STEVE+probe Ql (Unsp spec) No Normal [facility] Comment on above: Order Comment: Relea se to patient->Automatic 40600&Nasal swab Performed By: #### C OVID #### [facility] [address] [place] [address] SARS-CoV-2 (COVID-19) RT-PCR on 03-11-2021 SARS-CoV-2 (COVID-19) RNA STEVE+probe Ql (Unsp spec) Negative Normal [facility] Comment on above: Order Comment: Relea se to patient->Automatic [id number]&Nasal swab Result Comment: NEGA TIVE: SARS-CoV-2 RNA was NOT detected - Interpretation: A negative result indicates severe acute respiratory syndrome coronavirus 2 (SARS-CoV-2) RNA was not detected. Negative results do not preclude SARS-CoV-2 infection and should not be used as the sole basis for patient management decisions. Negative results must be combined with clinical observations, patient history, and epidemiological information. The possibility of a false negative result should be considered if the patient's recent exposures or clinical presentation suggest that SARS-CoV-2 infection is possible, and diagnostic tests for other causes of illness are negative. If SARS-CoV-2 infection is still suspected, re-testing should be considered. - Method: Real-time reverse transcriptase PCR amplification for the qualitative detection of the ORF1 a/b non-structural region that is unique to SARS-CoV-2 and a conserved region in the structural protein envelope E-gene for macedo-Sarbecovirus detection using the Rodrigo SARS-CoV-2 assay on the [employer] Rodrig[employer] 6800 System. - Comment: This test has received FDA Emergency Use Authorization (EUA) and has been verified by [facility]. This test is only authorized for the duration of the public health emergency declaration and the circumstances that exist to justify the authorization of the emergency use of in vitro diagnostic tests for the detection of SARS-CoV-2 virus and/or diagnosis of COVID-19 infection under section 564(b)(1) of the Act, 21 U.S.C. 360bbb-3(b)(1), unless the authorization is terminated or revoked sooner. This test has not been FDA cleared or approved. Results should be used in conjunction with clinical findings, and should not form the sole basis for a diagnosis or treatment decision. - Fact Sheets for this EUA can be found at the following links: For Healthcare Providers: www.[employer]gov/media/215288/download For Patients: www.[employer]gov/media/678272/download - Reference Value: Negative Performed By: #### C OVID #### [place] [address] RODRIGO SARS CoV-2 RT PCR Not detected Normal [facility] Comment on above: Order Comment: Relea se to patient->Automatic 10524&Nasal swab Performed By: #### C OVID #### [place] [address] SARS-CoV-2 (COVID-19) RT-PCR on 03-10-2021 Hospitalized? No Normal [facility] Comment on above: Order Comment: Relea se to patient->Automatic 05843&Nasal swab Performed By: #### C OVID #### [place] [address] ICU? No Normal [facility] Comment on above: Order Comment: Relea se to patient->Automatic 12674&Nasal swab Performed By: #### C OVID #### [place] [address] ? Unknown Normal [facility] Comment on above: Order Comment: Relea se to patient->Automatic 62385&Nasal swab Performed By: #### C OVID #### [facility] [address] [place] [address] Resident in congregate care setting? No Normal [facility] Comment on above: Order Comment: Relea se to patient->Automatic 76875&Nasal swab Performed By: #### C OVID #### [facility] [address] [place], [place] [id number] SARS-CoV-2 (COVID-19) RNA STEVE+probe Ql (Unsp spec) No Normal [facility] Comment on above: Order Comment: Relea se to patient->Automatic 25895&Nasal swab Performed By: #### C OVID #### [facility] [address] [place] [address] SARS-CoV-2 (COVID-19) RT-PCR on 03-04-2021 SARS-CoV-2 (COVID-19) RNA STEVE+probe Ql (Unsp spec) Negative Normal [facility] Comment on above: Order Comment: Relea se to patient->Automatic 94653&Nasopharyngeal swab Result Comment: NEGA TIVE: SARS-CoV-2 RNA was NOT detected - Interpretation: A negative result indicates severe acute respiratory syndrome coronavirus 2 (SARS-CoV-2) RNA was not detected. Negative results do not preclude SARS-CoV-2 infection and should not be used as the sole basis for patient management decisions. Negative results must be combined with clinical observations, patient history, and epidemiological information. The possibility of a false negative result should be considered if the patient's recent exposures or clinical presentation suggest that SARS-CoV-2 infection is possible, and diagnostic tests for other causes of illness are negative. If SARS-CoV-2 infection is still suspected, re-testing should be considered. - Method: Real-time reverse transcriptase PCR amplification for the qualitative detection of the ORF1 a/b non-structural region that is unique to SARS-CoV-2 and a conserved region in the structural protein envelope E-gene for macedo-Sarbecovirus detection using the Rodrigo SARS-CoV-2 assay on the [employer] Rodrigo [employer] System. - Comment: This test has received FDA Emergency Use Authorization (EUA) and has been verified by [facility]. This test is only authorized for the duration of the public health emergency declaration and the circumstances that exist to justify the authorization of the emergency use of in vitro diagnostic tests for the detection of SARS-CoV-2 virus and/or diagnosis of COVID-19 infection under section 564(b)(1) of the Act, 21 U.S.C. 360bbb-3(b)(1), unless the authorization is terminated or revoked sooner. This test has not been FDA cleared or approved. Results should be used in conjunction with clinical findings, and should not form the sole basis for a diagnosis or treatment decision. - Fact Sheets for this EUA can be found at the following links: For Healthcare Providers: www.[employer]gov/media/632052/download For Patients: www.fda.gov/media/108914/download - Reference Value: Negative Performed By: #### C OVID #### [place] [address] SARS-CoV-2 (COVID-19) RT-PCR on 03-03-2021 RODRIGO SARS CoV-2 RT PCR Not detected Normal [facility] Comment on above: Order Comment: Relea se to patient->Automatic [id number]&Nasopharyngeal swab Performed By: #### C OVID #### [place] [address] Hospitalized? No Normal [facility] Comment on above: Order Comment: Relea se to patient->Automatic 25173&Nasopharyngeal swab Performed By: #### C OVID #### [place] [address] ICU? No Normal [facility] Comment on above: Order Comment: Relea se to patient->Automatic 91453&Nasopharyngeal swab Performed By: #### C OVID #### [place] [address] ? Unknown Normal [facility] Comment on above: Order Comment: Relea se to patient->Automatic 67323&Nasopharyngeal swab Performed By: #### C OVID #### [facility] [address] [place], [place] [id number] Resident in congregate care setting? No Normal [facility] Comment on above: Order Comment: Relea se to patient->Automatic 70770&Nasopharyngeal swab Performed By: #### C OVID #### [facility] [address] [place], [place] [id number] SARS-CoV-2 (COVID-19) RNA STEVE+probe Ql (Unsp spec) No Normal [facility] Comment on above: Order Comment: Relea se to patient->Automatic 34599&Nasopharyngeal swab Performed By: #### C OVID #### [facility] [address] [place] [address] SARS-CoV-2 (COVID-19) RT-PCR on 02-24-2021 SARS-CoV-2 (COVID-19) RNA STEVE+probe Ql (Unsp spec) Negative Normal [facility] Comment on above: Order Comment: Relea se to patient->Automatic Result Comment: NEGA TIVE: SARS-CoV-2 RNA was NOT detected - Interpretation: A negative result indicates severe acute respiratory syndrome coronavirus 2 (SARS-CoV-2) RNA was not detected. Negative results do not preclude SARS-CoV-2 infection and should not be used as the sole basis for patient management decisions. Negative results must be combined with clinical observations, patient history, and epidemiological information. The possibility of a false negative result should be considered if the patient's recent exposures or clinical presentation suggest that SARS-CoV-2 infection is possible, and diagnostic tests for other causes of illness are negative. If SARS-CoV-2 infection is still suspected, re-testing should be considered. - Method: Real-time reverse transcriptase PCR amplification for the qualitative detection of the ORF1 a/b non-structural region that is unique to SARS-CoV-2 and a conserved region in the structural protein envelope E-gene for macedo-Sarbecovirus detection using the Rodrigo SARS-CoV-2 assay on the [employer] Rodrigo [employer] System. - Comment: This test has received FDA Emergency Use Authorization (EUA) and has been verified by [facility]. This test is only authorized for the duration of the public health emergency declaration and the circumstances that exist to justify the authorization of the emergency use of in vitro diagnostic tests for the detection of SARS-CoV-2 virus and/or diagnosis of COVID-19 infection under section 564(b)(1) of the Act, 21 U.S.C. 360bbb-3(b)(1), unless the authorization is terminated or revoked sooner. This test has not been FDA cleared or approved. Results should be used in conjunction with clinical findings, and should not form the sole basis for a diagnosis or treatment decision. - Fact Sheets for this EUA can be found at the following links: For Healthcare Providers: www.[employer]gov/media/420662/download For Patients: www.[employer]gov/media/386293/download - Reference Value: Negative Performed By: #### C OVID #### [place] [address] RODRIGO SARS CoV-2 RT PCR Not detected Normal [facility] Comment on above: Order Comment: Relea se to patient->Automatic Performed By: #### C OVID #### [place] [address] Hospitalized? No Normal [facility] Comment on above: Order Comment: Relea se to patient->Automatic Performed By: #### C OVID #### [place] [address] ICU? No Normal [facility] Comment on above: Order Comment: Relea se to patient->Automatic Performed By: #### C OVID #### [address] [address] ? Unknown Normal [facility] Comment on above: Order Comment: Relea se to patient->Automatic Performed By: #### C OVID #### [place] [address] Resident in congregate care setting? No Normal [facility] Comment on above: Order Comment: Relea se to patient->Automatic Performed By: #### C OVID #### [address] [address] SARS-CoV-2 (COVID-19) RNA STEVE+probe Ql (Unsp spec) No Normal [facility] Comment on above: Order Comment: Relea se to patient->Automatic Performed By: #### C OVID #### [address] [address] [place] SARS-CoV-2 (COVID-19) RT-PCR, Qualitativeon 07-22-2020 SARS-CoV-2 (COVID-19) RT-PCR, Qualitative Not detected Normal [facility] Comment on above: Order Comment: amber reyna Performed By: #### E LRG2 #### [address] [address] Vital Signs Date Time Vital Sign Value Performing Clinician Facility 11-28-2024 13:19-0400 Body height 160 cm Darlene Millervarsha [employer] RN Work Phone: [facility] 11-28-2024 13:19-0400 Body mass index (BMI) [Ratio] 27.46 kg/m2 Darlene Millerlaurencet [employer] RN Work Phone: [facility] 11-28-2024 13:19-0400 Body weight 70.31 kg Darlene Millerlaurencet [employer] RN Work Phone: [facility] 11-28-2024 13:19-0400 Respiratory rate 16 /min Darlene Millerlaurencet [employer] RN Work Phone: [facility] 10-17-2024 09:36-0400 Body height 160 cm Darlene Millerlaurencet [employer] RN Work Phone: [facility] 10-17-2024 09:36-0400 Body mass index (BMI) [Ratio] 27.46 kg/m2 Darlene Carmen [employer] RN Work Phone: [facility] 10-17-2024 09:36-0400 Body temperature 97 [degF] Darlene Carmen [employer] RN Work Phone: [facility] 10-17-2024 09:36-0400 Body weight 70.31 kg Darlene Carmen [employer] RN Work Phone: [facility] 10-17-2024 09:36-0400 Diastolic blood pressure 78 mm[Hg] Darlene Carmen [employer] RN Work Phone: [facility] 10-17-2024 09:36-0400 Heart rate 72 /min Darlene Harot [employer] RN Work Phone: [facility] 10-17-2024 09:36-0400 Respiratory rate 17 /min Darlene Carmen [employer] RN Work Phone: [facility] 10-17-2024 09:36-0400 Systolic blood pressure 110 mm[Hg] Darlene Carmen [employer] RN Work Phone: [facility] 08-29-2024 11:08-0400 Body height 160 cm Frida Hopson ENVIRONMENTAL AUDITOR Work Phone: [facility] 08-29-2024 11:08-0400 Body mass index (BMI) [Ratio] 31.71 kg/m2 Frida Hopson ENVIRONMENTAL AUDITOR Work Phone: [facility] 08-29-2024 11:08-0400 Body weight 81.19 kg Frida Hopson ENVIRONMENTAL AUDITOR Work Phone: [facility] 08-29-2024 11:08-0400 Diastolic blood pressure 60 mm[Hg] Frida Hopson ENVIRONMENTAL AUDITOR Work Phone: [facility] 08-29-2024 11:08-0400 Systolic blood pressure 85 mm[Hg] Frida Hopson ENVIRONMENTAL AUDITOR Work Phone: [facility] 05-30-2024 10:06-0500 Body height 160 cm Frida Steffey ENVIRONMENTAL AUDITOR Work Phone: [facility] 05-30-2024 10:06-0500 Body mass index (BMI) [Ratio] 31.71 kg/m2 Frida Steffey ENVIRONMENTAL AUDITOR Work Phone: [facility] 05-30-2024 10:06-0500 Body weight 81.19 kg Frida Steffey ENVIRONMENTAL AUDITOR Work Phone: [facility] 05-30-2024 10:06-0500 Diastolic blood pressure 62 mm[Hg] Frida Steffey ENVIRONMENTAL AUDITOR Work Phone: [facility] 05-30-2024 10:06-0500 Systolic blood pressure 100 mm[Hg] Frida Steffey ENVIRONMENTAL AUDITOR Work Phone: [facility] 05-16-2024 16:03-0500 Body height 160 cm Frida Steffey ENVIRONMENTAL AUDITOR Work Phone: [facility] 05-16-2024 16:03-0500 Body mass index (BMI) [Ratio] 31.71 kg/m2 Frida Steffey ENVIRONMENTAL AUDITOR Work Phone: [facility] 05-16-2024 16:03-0500 Body weight 81.19 kg Frdia Steffey ENVIRONMENTAL AUDITOR Work Phone: [facility] 05-16-2024 16:03-0500 Diastolic blood pressure 70 mm[Hg] Frida Steffey ENVIRONMENTAL AUDITOR Work Phone: [facility] 05-16-2024 16:03-0500 Systolic blood pressure 90 mm[Hg] Frida Steffey ENVIRONMENTAL AUDITOR Work Phone: [facility] 12-08-2023 13:01-0400 Body height [address] [facility] 12-08-2023 13:01-0400 Body mass index (BMI) [Ratio] 32.95 kg/m2 Mely Vigil RD [facility] 12-08-2023 13:01-0400 Body weight 84.[address] [facility] 07-11-2023 19:00-0400 Body height 160.02 cm [facility] 07-11-2023 19:00-0400 Body mass index (BMI) [Ratio] 30.2 kg/m2 [facility] 07-11-2023 19:00-0400 Body temperature 977 [degF] [facility] 07-11-2023 19:00-0400 Body weight 77.56 kg [facility] 07-11-2023 19:00-0400 Diastolic blood pressure 60 mm[Hg] [facility] 07-11-2023 19:00-0400 Heart rate 98 /min [facility] 07-11-2023 19:00-0400 Respiratory rate 18 /min [facility] 07-11-2023 19:00-0400 SaO2% (BldA) [Mass fraction] 98 % [facility] 07-11-2023 19:00-0400 Systolic blood pressure 100 mm[Hg] [facility] 06-06-2023 10:51-0500 Body height 160 cm Jerzy Hahn MD Work Phone: [facility] 06-06-2023 10:51-0500 Body mass index (BMI) [Ratio] 29.85 kg/m2 Jerzy Hahn MD Work Phone: [facility] 06-06-2023 10:51-0500 Body weight 76.43 kg Jerzy Hahn MD Work Phone: [facility] 06-06-2023 10:51-0500 Diastolic blood pressure 78 mm[Hg] Jerzy Hahn MD Work Phone: [facility] 06-06-2023 10:51-0500 Heart rate 82 /min Jerzy Hahn MD Work Phone: [facility] 06-06-2023 10:51-0500 SaO2% (BldA) [Mass fraction] 98 % Jerzy Hahn MD Work Phone: [facility] 06-06-2023 10:51-0500 Systolic blood pressure 124 mm[Hg] Jerzy Hahn MD Work Phone: [facility] 05-03-2023 16:35-0500 Body mass index (BMI) [Ratio] 30.2 kg/m2 [facility] 05-03-2023 16:35-0500 Body temperature 97.9 [degF] [facility] 05-03-2023 16:35-0500 Body weight 77.56 kg [facility] 05-03-2023 16:35-0500 Diastolic blood pressure 60 mm[Hg] [facility] 05-03-2023 16:35-0500 Heart rate 101 /min [facility] 05-03-2023 16:35-0500 Respiratory rate 18 /min [facility] 05-03-2023 16:35-0500 SaO2% (BldA) [Mass fraction] 97 % [facility] 05-03-2023 16:35-0500 Systolic blood pressure 80 mm[Hg] [facility] 05-05-2022 17:31-0500 Body height 1889.76 cm [facility] 05-05-2022 17:31-0500 Body mass index (BMI) [Ratio] 0.2 kg/m2 [facility] 05-05-2022 17:31-0500 Body temperature 98.5 [degF] [facility] 05-05-2022 17:31-0500 Body weight 83 kg [facility] 05-05-2022 17:31-0500 Diastolic blood pressure 70 mm[Hg] [facility] 05-05-2022 17:31-0500 Heart rate 78 /min [facility] 05-05-2022 17:31-0500 Respiratory rate 18 /min [facility] 05-05-2022 17:31-0500 SaO2% (BldA) [Mass fraction] 98 % [facility] 05-05-2022 17:31-0500 Systolic blood pressure 100 mm[Hg] [facility] 1988 23:00-0500 >na< Narcisa Pierre Dept. of Dermato logy Encounters Encounter Date Encounter Type Care Provider Facility Start: 11-28-2024 End: 11-28-2024 Patient encounter procedure Dralene Carmen [employer] RN Work Phone: [facility] Comment on above: Chronic migraine wit hout aura, intractable, without status migrainosus (Primary Dx) Start: 11-28-2024 End: 11-28-2024 ambulatory [facility] Start: 11-14-2024 End: 11-14-2024 ambulatory JENNY BERGERON Facility:[facility] Start: 10-17-2024 End: 10-17-2024 ambulatory [facility] Start: 10-17-2024 End: 10-17-2024 Office outpatient new 30 minutes [facility] [employer] RN Work Phone: [facility] Comment on above: Chronic migraine wit hout aura, intractable, without status migrainosus (Primary Dx) Start: 10-04-2024 ambulatory JENNY BERGERON Facilit y:[facility] Start: 10-04-2024 ambulatory JENNY BERGERON Facilit y:[facility] Start: 10-03-2024 End: 10-03-2024 ambulatory JENNY BERGERON Facility:[facility] Start: 09-10-2024 ambulatory JENNY BERGERON Facilit y:[facility] Start: 09-02-2024 ambulatory JENNY BERGERON Facilit y:[facility] Start: 08-29-2024 End: 08-29-2024 Bamboo flowsheet Frida Hopson ENVIRONMENTAL AUDITOR Work Phone: [facility] Start: 08-29-2024 End: 08-29-2024 Bamboo flowsheet Frida Hopson ENVIRONMENTAL AUDITOR Work Phone: [facility] Start: 08-29-2024 End: 08-29-2024 ambulatory FRIDA HOPSON Not Available Start: 08-29-2024 End: 08-29-2024 Patient encounter procedure Frida Hopson NP Work Phone: [facility] Comment on above: Intractable chronic migraine without aura and without status migrainosus (CMS/HCC) (Primary Dx) Start: 05-30-2024 End: 05-30-2024 Bamboo flowsheet Frida Hopson ENVIRONMENTAL AUDITOR Work Phone: [facility] Start: 05-30-2024 End: 05-30-2024 Bamboo flowsheet Frida Hopson ENVIRONMENTAL AUDITOR Work Phone: [facility] Start: 05-30-2024 End: 05-30-2024 ambulatory FRIDA HOPSON Not Available Start: 05-30-2024 End: 05-30-2024 Patient encounter procedure Frida Hopson ENVIRONMENTAL AUDITOR Work Phone: [facility] Comment on above: Intractable chronic migraine without aura and without status migrainosus (CMS/HCC) (Primary Dx) Start: 05-20-2024 End: 05-20-2024 ambulatory Jenny Bergeron ENVIRONMENTAL AUDITOR Facility:[facility] Start: 05-16-2024 End: 05-16-2024 ambulatory FRIDA HOPSON Not Available Start: 05-16-2024 End: 05-16-2024 Office outpatient visit 40 minutes Frida Hopson ENVIRONMENTAL AUDITOR Work Phone: [facility] Comment on above: Intractable chronic migraine without aura and without status migrainosus (CMS/HCC) (Primary Dx); Cervicalgia; Orofacial dyskinesia; Nausea Start: 05-09-2024 End: 05-09-2024 ambulatory REG ALBERTO PA-C Facility:[id number] Start: 02-29-2024 End: 02-29-2024 ambulatory DARLENE S WEYGANDT Not Available Start: 02-29-2024 End: 02-29-2024 Patient encounter procedure Darlene S Weygandt ENVIRONMENTAL AUDITOR Work Phone: [facility] Comment on above: Intractable chronic migraine without aura and without status migrainosus (CMS/HCC) (Primary Dx) Start: 01-27-2024 End: 01-27-2024 ambulatory JOSE BERGERON Facility:[facility] Start: 12-29-2023 End: 12-29-2023 Bamboo flowsheet Darlene S Weygandt ENVIRONMENTAL AUDITOR Work Phone: [facility] Start: 12-29-2023 End: 12-29-2023 Bamboo flowsheet Darlene S Weygandt ENVIRONMENTAL AUDITOR Work Phone: [facility] Start: 12-29-2023 End: 12-29-2023 ambulatory DARLENE CARMEN Not Available Start: 12-29-2023 End: 12-29-2023 Office outpatient visit 15 minutes Darlene Carmen ENVIRONMENTAL AUDITOR Work Phone: [facility] Comment on above: Intractable chronic migraine without aura and without status migrainosus (CMS/HCC) (Primary Dx) Start: 12-08-2023 End: 12-08-2023 ambulatory MELY VIGIL Facility:[facility] Start: 12-08-2023 End: 12-08-2023 Nutrition therapy Mely Vigil RD Nutrition Therapy Comment on above: Obesity, Class I, BM I 30-34.9 (Primary Dx); Dietary counseling Start: 12-08-2023 End: 12-08-2023 Telemedicine consultation with patient Mely Vigil RD Nutrition Therapy Start: 11-28-2023 End: 11-28-2023 ambulatory DARLENE CARMEN Not Available Start: 11-23-2023 End: 11-23-2023 ambulatory Jenny Bergeron ENVIRONMENTAL AUDITOR Facility:[facility] Start: 09-05-2023 End: 09-05-2023 ambulatory JERZY HAHN Not Available Start: 08-25-2023 End: 08-25-2023 Office outpatient visit 15 minutes Narcisa Pierre GLOVE PARTS INSPECTOR-UM RN Work Phone: [facility] Comment on above: Skin cancer screenin g (Primary Dx); Nevus; Skin tag; Dermatofibroma; Eczema, unspecified type Start: 07-11-2023 End: 07-11-2023 ambulatory [facility] Work Phone: Start: 07-11-2023 End: 07-11-2023 Patient encounter procedure [facility], Specimen Work Phone: Start: 07-11-2023 End: 07-11-2023 ambulatory Jenny Bergeron ENVIRONMENTAL AUDITOR Facility:[facility] Start: 06-06-2023 End: 06-06-2023 Patient encounter procedure Jerzy Hahn MD Work Phone: [facility] Comment on above: Intractable chronic migraine without aura and without status migrainosus (CMS/HCC) (Primary Dx) Start: 11-03-2022 End: 11-04-2022 ambulatory OBED VILA MD Facility:[id number] Start: 05-05-2022 End: 05-05-2022 ambulatory [facility] Work Phone: Start: 05-05-2022 End: 05-05-2022 Patient encounter procedure [facility], Specimen Start: 05-05-2022 Patient encounter status [facility] Start: 04-29-2022 ambulatory ZANE MARTY Facili ty:[facility] Start: 04-11-2022 ambulatory DEMETRIUS Angeli ty:[facility] Start: 04-06-2022 End: 04-07-2022 ambulatory CARLOS ALBERTO PACKER MD Facility:[facility] Start: 04-06-2022 End: 04-07-2022 ambulatory CARLOS ALBERTO PACKER MD Facility:[id number] Start: 01-21-2022 End: 01-22-2022 ambulatory OBED VILA MD Facility:[facility] Start: 12-14-2021 ambulatory DEMETRIUS Angeli ty:[facility] Start: 12-14-2021 End: 12-15-2021 ambulatory CARLOS ALBERTO PACKER MD Facility:[facility] Start: 12-13-2021 ambulatory DEMETRIUS NELSON MARTY Facili ty:[facility] Start: 11-16-2021 End: 11-17-2021 ambulatory CARLOS ALBERTO PACKER MD Facility:[facility] Start: 11-11-2021 ambulatory DEMETRIUS NELSON MARTY Facili ty:[facility] Start: 01-13-2021 Office outpatient vi sit 15 minutes Narcisa Bort [facility] D[facility]atology Start: 01-14-2020 Office outpatient vi sit 15 minutes Narcisa Bort [facility]atology Start: 01-18-2019 Office outpatient vi sit 15 minutes Narcisa Bort Dept[facility] D[facility]atology Start: 08-12-2018 Emergency department patient visit Feroz Armstrong [facility] Start: 07-24-2018 Office outpatient vi sit 15 minutes Narcisa Bort Dept[facility] of Dermatology Start: 07-24-2018 Office outpatient vi sit 25 minutes Narcisa Bort Dept[facility] D[facility]atology Start: 02-26-2018 Office outpatient vi sit 15 minutes Narcisa Bort [facility]ology Start: 11-22-2017 Office outpatient vi sit 15 minutes Narcisa Bort [facility]ology Start: 10-03-2017 Office outpatient vi sit 15 minutes Narcisa Bort [facility] Start: 10-03-2017 Office outpatient vi sit 25 minutes Narcisa Bort [facility] Start: 08-29-2017 Office outpatient ne w 30 minutes Narcisa Bort Dept[facility]ology Start: 08-29-2017 Office outpatient vi sit 15 minutes Narcisa Bort Dept[facility] of Dermatology Procedures Date Procedure Procedure Detail Performing Clinician Start: 11-28-2024 Injection of botulin um toxin Darlene Schafer Donaldo [employer]OVE [employer]S INSPECTOR-UM RN Work Phone: Start: 08-25-2023 DESTRUCTION OF LESION N icole L Bort [employer]OVE [employer]S INSPECTOR-UM RN Work Phone: Start: 05-28-2020 Follow-up visit Plan of Treatment Date Care Activity Detail Author Start: 2038 Zoster Vaccines (1 of 2) Zoste r Vaccines (1 of 2) [facility] Start: 06-29-2031 DTaP/Tdap/Td Vaccine s (5 - Td or Tdap) DTaP/Tdap/Td Vaccines (5 - Td or Tdap) [facility] Start: 06-29-2031 Urine microalbumin profile DTaP,Tdap,Td Vaccine (4 - Td or Tdap) [facility] Start: 12-23-2024 Influenza vaccination Influenza Vacc ine (#1) [facility] Start: 12-05-2024 End: 12-05-2024 Patient encounter procedure 12/05/2024 11:30 AM EDT Procedure Visit [facility] [address] [place] [address] Darlene Carmen, GLOVE [employer]S INSPECTOR-UM RN [address] [place] [address] [facility] Start: 11-28-2024 End: 11-28-2024 Patient encounter procedure 11/28/2024 2:00 PM EDT Procedure Visit [facility] [address] [place] [phone] Darlene Carmen, [employer]OVE [employer] INSPECTOR-UM RN [address] [place] [address] [facility] Start: 08-29-2024 End: 08-29-2024 Patient encounter procedure 08/29/2024 11:00 AM EDT Procedure Visit [facility] [address] [place] [address] Frida Hopson, ENVIRONMENTAL AUDITOR [address] [place] [address] [facility] Start: 08-24-2024 Skin Cancer Screening Skin Cancer [facility] Start: 05-30-2024 End: 05-30-2024 Patient encounter procedure 05/30/2024 10:00 AM EST Procedure Visit [facility] [address] [place] [address] Frida Hopsno ENVIRONMENTAL AUDITOR [address] [place] [address] [facility] Start: 02-29-2024 End: 02-29-2024 Patient encounter procedure 02/29/2024 9:30 AM EST Procedure Visit [facility] [address] [place] [phone] Darlene Carmen NP [address] [place], [place] [address] [facility] Start: 01-18-2024 End: 01-18-2024 Follow-up encounter 01/18/2024 1:00 PM EDT [facility] Nutrition Therapy [address] [address] Mely Vigil, [address] [place] [address] follow up Nutrition Therapy Comment on above: follow up Start: 12-24-2023 COVID-19 Vaccine () COVID-19 Vaccine () [facility] Start: 12-24-2023 Influenza vaccination Influenza Vacc ine (#1) [facility] Start: 09-05-2023 End: 09-05-2023 Patient encounter procedure 09/05/2023 10:20 AM EDT Procedure Visit [facility] [address] [place] [phone] Jerzy Hahn MD [address] [place], [place] [address] [facility] Start: 07-11-2023 5,10-methylenetetrah ydro folate reductase gene analysis [facility] Start: 07-11-2023 Vitamin B6 measurement [facility] Start: 12-23-2022 Covid-19 Vaccine ( season) Covid-19 Vaccine ( season) [facility] Start: 12-23-2022 COVID-19 Vaccine () COVID-19 Vaccine () [facility] Start: 2018 Screening for malign ant neoplasm of cervix [facility] Start: 10-07-2010 HPV Vaccine (2 - 3-d ose series) HPV Vaccine (2 - 3-dose series) [facility] Start: 10-07-2010 HPV Vaccines (2 - 3- dose series) HPV Vaccines (2 - 3-dose series) [facility] Start: 10-07-2010 MMR Vaccines (1 of 1 - Standard series) MMR Vaccines (1 of 1 - Standard series) [facility] Start: 10-07-2010 Varicella vaccination Varicell a Vaccines (2 of 2 - 13+ 2-dose series) [facility] Start: 2009 Screening for malign ant neoplasm of cervix [facility] Start: 2006 Anxiety Screening Anxiety Screening [facility] Start: 2006 Depression Screening Depression Scre ening [facility] Start: 2006 Diabetes mellitus screening Diabetes Screening [facility] Start: 2006 Hepatitis C screening Hepatitis C Sc reening [facility] Start: 2006 HIV screening HIV Screening [facility] Start: 1989 MMR Vaccines (1 of 1 - Standard series) MMR Vaccines (1 of 1 - Standard series) [facility] Start: 1988 HIV screening HIV Screening [facility] Start: 1988 Lipid panel Lipid Panel [facility] Start: 1988 Yearly Adult Physical Yearly Adult P hycal [facility] Peri [facility] Immunizations Immunization Date Immunization Notes Care Provider Sarah leonardo 02-10-2024 influenza virus vaccine, unspecified formulation Darlene Carmen [employer]OVE [employer]S INSPECTOR-UM RN Work Phone: [facility] Work Phone: 02-13-2023 influenza virus vaccine, unspecified formulation Darlene Carmen ENVIRONMENTAL AUDITOR Work Phone: [facility] 01-31-2018 influenza virus vaccine, unspecified formulation Mely Vigil RD [facility] 09-09-2010 HPV, unspecified formulation Narcisa Pierre GLOVE PARTS INSPECTOR-UM RN Work Phone: [facility] Work Phone: 09-09-2010 varicella virus vaccine Narcisa Pierre GLOVE PARTS INSPECTOR-UM RN Work Phone: [facility] Work Phone: 1988 pneumococcal conjuga te vaccine, 7 valent Narcisa Pierre Dept. of Dermatology Payers Date Payer Category Payer Self-pay 2022 [facility] [id number] 2022 [facility] [id number] 2022 Unknown [id number] 2008 Unknown 2008 Unknown [id number] 1988 Unknown [id number] 2.16.840.1.031530.3.579.2 .668 1988 Unknown [id number] 2.16.840.1.820072.3.579.2 .159 1988 Unknown [id number] 2.16.840.1.825043.3.579.2 .159 1988 Unknown [id number] 2.16.840.1.204871.3.579.2 .159 1988 Unknown [id number] 2.16.840.1.884942.3.579.2 .159 1988 Unknown [id number] 2.16.840.1.040899.3.579.2 .159 1988 Unknown [id number] 2.16.840.1.637405.3.579.2 .159 1988 Unknown [id number] 2.16.840.1.052956.3.579.2 .159 1988 Unknown [id number] 2.16.840.1.952449.3.579.2 .159 1988 Unknown [id number] 2.16.840.1.446325.3.579.2 .159 1988 Unknown [id number] 2.16.840.1.648037.3.579.2 .159 1988 Unknown [id number] 2.16.840.1.193534.3.579.2 .159 1988 Unknown [id number] 2.16.840.1.615291.3.579.2 .1259 1988 Unknown [id number] 2.16.840.1.493554.3.579.2 .1259 1988 Unknown [id number] 2.16.840.1.974654.3.579.2 .1259 1988 Unknown [id number] 2.16.840.1.034861.3.579.2 .1259 1988 Unknown [id number] 2.16.840.1.207447.3.579.2 .1259 1988 Unknown [id number] 2.16.840.1.716932.3.579.2 .1259 1988 Unknown [id number] 2.16.840.1.006808.3.579.2 .1259 1988 Unknown [id number] 2.16.840.1.404632.3.579.2 .159 1988 Unknown [id number] 2.16.840.1.043015.3.579.2 .159 1988 Unknown [id number] 2.16.840.1.420128.3.579.2 .159 1988 Unknown [id number] 2.16.840.1.733825.3.579.2 .159 1988 Unknown [id number] 2.16840.1.422214.3.579.2 .159 1988 Unknown [id number] 2.16840.1.629919.3.579.2 .159 1988 Unknown [id number] 2.16.840.1.170622.3.579.2 .159 1988 Unknown [id number] 2.16840.1.714038.3.579.2 .159 1988 Unknown [id number] 2.16840.1.879171.3.579.2 .159 1988 Unknown [id number] 2.16840.1.330418.3.579.2 .1244 1988 Unknown [id number] 2.16840.1.235767.3.579.2 .1244 Unknown [id number] 2.16840.1.049348.3.579.2 .462 Unknown [id number] 2.16840.1.201922.3.579.2 .462 Unknown [id number] 2.16840.1.815120.3.579.2 .462 Social History Date Type Detail Facility Start: 01-13-2021 Dept. of D ermatology Start: 1990 [facility] Assigned At Female [facility] Start: 11-29-2022 End: 10-16-2024 Tobacco smoking status NHIS Never smoked tobacco [facility] Start: 11-29-2022 End: 10-16-2024 Tobacco use and exposure Smokeless tobacco non-user [facility] Start: 06-06-2023 End: 08-29-2024 Alcohol intake Current drinker of alcohol (finding) [facility] Start: 06-06-2023 End: 10-17-2024 History of Social function [facility] Start: 06-06-2023 End: 10-17-2024 Tobacco use panel [facility] Start: 11-29-2022 Alcohol Comment 5 or 6 drinks on a typical day / 2 to 4 times a month [facility] Start: 1990 Sex Assigned At Not on file [facility] Start: 08-15-2023 End: 08-25-2023 Exposure to SARS-CoV-2 (event) Not sure [facility] History of tobacco use Chews Tobacco [facility] Start: 01-28-2022 Alcohol intake Current non-dr respiratory supervisor of alcohol (finding) [facility] Start: 03-18-2022 National Score (1-10 0), lower number is lower risk 79 [facility] Start: 10-17-2024 Alcoholic beverage intake Lifetime non-drinker (finding) [facility] Work Phone: How often to you hav e a drink containing alcohol? Never [facility] Goals Date Patient Goal Desired Activity /State Functional Status Date Assessment Result Facility 11-28-2024 Patient Health Quest ionnaire 2 item (PHQ-2) [Reported] [facility] Work Phone: 10-17-2024 Patient Health Quest ionnaire 2 item (PHQ-2) [Reported] [facility] Work Phone: 10-17-2024 Total score [AUDIT-C] 0 10/18/19 9:45 AM Angelica Hawley MA [facility] Work Phone: [facility] Work Phone: Clinical Notes 06-06-2023 to 10-17-2024 Darlene Carmen, NARCISO-MASHA - 10/17/2024 9:30 AM Sloan Hopson, ENVIRONMENTAL AUDITOR - 08/29/2024 11:00 AM Sloan Hopson, ENVIRONMENTAL AUDITOR - 05/30/2024 10:00 AM Juan Hopson, ENVIRONMENTAL AUDITOR - 05/16/2024 4:00 PM EST Note Date & Type Note Facility 10-17-2024 History of Present illness Narrative Images from the original note were not included. CHIEF COMPLAINT: migraines HISTORY OF PRESENT ILLNESS: 34 year old female presented to office to establish care for mgiraines, known to this provider. Would like to continue care with this provider. Currently on botox for migraines, effective in decreasing frequency, intensity and duration of migraines. May take ubrelvy at least 3x/ in the past month, effective. Last botox received on 08/29/2024. Prior to botox migraines occurred: Migraines per month: > 15 Length of migraines: > 3 months Duration: > 6 hours Described as: mild to severe stabbing pain to left frontal area, behind left, and can surround entire head. Associated symptoms: photophobia, phonophobia, n/v Triggers- Weather changes, Stress, odors, loud noise, flashing lights. Failed treatment: Amitriptyline, Depakote, Topamax, Prozac, Cymbalta, Ajovy, Maxalt, Imitrex, Nurtec, Tylenol, ibuprofen- Currently on ubrelvy Continues to follow up with psychiatrist, doing well per patient. Denies thoughts or feelings of self harm, nor has plan. Caffeine: 1-2 x/week energy drinks, Water: 64 ounces per day. Sleep: About 2 days per week 4-5 hours d/t work schedule, the rest of days at least 7-8 hours. All questions and concerns addressed. Current Outpatient Medications on File Prior to Visit Medication Sig Dispense Refill clonazePAM (KlonoPIN) 1 mg tablet Take by mouth 2 times a day. folic acid-vit B6-vit B12 (WesTab Max) 2.5-25-2 mg tablet Take 1 tablet by mouth once daily. hydroCHLOROthiazide (HYDRODiuril) 25 mg tablet Take 1 tablet (25 mg) by mouth once daily. omeprazole OTC (PriLOSEC OTC) 20 mg EC tablet Take 1 tablet (20 mg) by mouth once daily in the morning. Take before meals. Do not crush, chew, or split. vit no.180/iron/folic ( PLUS VITAMIN-MINERAL ORAL) Take by mouth. prucalopride (Motegrity) 2 mg tablet Take 1 tablet (2 mg) by mouth once daily. triamcinolone (Kenalog) 0.1 % cream Apply topically 2 times a day as needed for rash. 80 g 1 ubrogepant (Ubrelvy) 100 mg tablet Take by mouth. No current facility-administered medications on file prior to visit. 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 REVIEW OF SYSTEMS: General: Appetite change: denies. Chills: denies. Fever: denies. Allergy/Immunology: Unusual rection to medications, food, animals or insects reaction: denies. Ophthalmologic: Visual acuity change: denies. ENT: Decreased hearing: denies. Endocrine: Weight loss: denies. Respiratory: Cough: denies. Wheezing: denies. Cardiovascular: Chest pain: denies. Palpitations: denies. Gastrointestinal: Abdominal pain: denies. Difficulty swallowing: denies Hematology: Bleeding problems: denies. Genitourinary: Painful urination: denies. Musculoskeletal: Joint pain: denies. Joint edema: denies. Skin: Rash: denies. Neurologic: Ataxia: denies, Tremor: denies. Psychiatric: Suicidal thoughts: denies. Also see HPI for elements of ROS documented therein and for details of positive findings, which shall supersede the foregoing. OBJECTIVE: Objective Vitals: 10/17/24 0936 BP: 110/78 Pulse: 72 Resp: 17 Temp: 36.1 C (97 F) TempSrc: Temporal Weight: 70.3 kg (155 lb) Height: 1.6 m (5' 3) Body mass index is 27.46 kg/m . EXAMINATION: General Exam: pleasant, well nourished, well developed, in no acute distress Head: normocephalic, atraumatic Eyes: extraocular movement intact (EOMI), pupils equal, round, reactive to light, upper eyelids normal , lower eyelids normal Ears: no obvious hearing deficit Nose: Nares patent Neck/Throat: neck supple, full range of motion Oral Cavity: mucosa moist Skin: warm and dry Heart: no murmurs, regular rate and rhythm, S1, S2 normal Lungs: clear to auscultation bilaterally, good air movement, no wheezes, rales, rhonci, speaks in full sentences Chest: normal shape and expansion Abdomen: bowel sounds present, soft, nontender, nondistended, no guarding or rigidity Extremities: no edema, no cyanosis Musculoskeletal: no swelling or deformity Neurologic: nonfocal, alert and oriented, cognitive exam grossly normal, cranial nerves 2-12 grossly intact, motor strength 5/5 bilateral symmetrically, no drift, coordination intact, sensory exam intact, gait normal Psych: pleasant, cooperative, good eye contact, speech clear, judgement and insight good ASSESSMENT/PLAN: 1. Chronic migraine without aura, intractable, without status migrainosus (Primary) Stable, continue botox- last botox 08/29/2024, continue ubrelvy 100 mg prn Continue to follow up psychiatrist, adequate fluid intake, adequate sleep, increase activity/exercise Possible upcoming in near future, discussed will need to discontinue ubrelvy. Follow up in November for botox I personally spent 32 minutes today, exclusive of procedures, providing care for this patient, including preparation, face to face time, documentation and other services such as review of medical records, diagnostic result, patient education, counseling, coordination of care as specified in the encounter. KAMI Blankenship documented in this encounter [facility] Work Phone: 10-03-2024 Note DAXA ALVARADO :1990 Registration Date:10/03/2024 Procedure Name Kyleena IUD removal Indication plans Pre-Procedure Exam Technique Kyleena Removal Procedure The R/B/A were discussed with the patient prior to removing the Kyleena IUD including risk of . All questions were answered, and consent was obtained. A speculum was placed in the vagina, and the cervix was visualized. The IUD strings were visualized protruding 2-3 cm from the external os. The strings were grasped with a rings forceps and the IUD removed. The IUD was inspected and found to be intact. The speculum was removed. The patient tolerated the procedure well. Assessment/Plan This Visit Diagnosis Family planning Z30.09 Ordered: AMB Office/Outpt Est Pt Low MDM / 20 min 79163, 25 Separate E/M same day w/procedure 10/03/2024 10:43:00 EDT, Family planning / IUD contraception AMB Remove Intrauterine Device [id number], 10/03/2024 10:43:00 EDT, Family planning / IUD contraception, 1 IUD contraception Z97.5 Ordered: AMB Office/Outpt Est Pt Low MDM / 20 min [id number], 25 Separate E/M same day w/procedure 10/03/2024 10:43:00 EDT, Family planning / IUD contraception AMB Remove Intrauterine Device [id number], 10/03/2024 10:43:00 EDT, Family planning / IUD contraception, 1 Orders: multivitamin, ( Multivitamins with Folic Acid 5 mg oral kit), See Instructions, 3 refills [facility] 08-29-2024 History of Present illness Narrative BOTOX PROCEDURE The patient was identified by name and date of . Botox has decreased the frequency and intensity of the migraine headaches. It was confirmed with the patient prior to Botox injections that the patient is not , has no infection or acute illness, has not received any of the antonella in the last 48 hours and does not have any procedures 48 hours after Botox injections. Risks and benefits of the procedure were discussed with the patient, opportunity for questions given. Betadine was used to prep the skin sites. Patient was injected with Botox 155 units, 45 units wasted. Dilution/Units 200 units 2:1 In 31 injection sites. In 7 specific head/neck muscle areas: 5 Units in Procerus. 10 Units in dietitian teaching bilaterally. 20 Units in Frontalis bilaterally. 40 Units in Temporalis bilaterally. 30 Units in Occipitalis bilaterally. 20 Units in Cervical Paraspinal bilaterally. 30 Units in Trapezius bilaterally. 0 Units in the [place] bilaterally. The patient tolerated the procedure and had no adverse effects. The patient was given post procedure instruction including not putting pressure on the injection sites for 24 hours. Patient verbalized understanding. Current Outpatient Medications on File Prior to Visit Medication Sig Dispense Refill cetirizine (ZyrTEC) 5 MG tablet Take 10 mg by mouth Daily clonazePAM (KlonoPIN) 0.5 MG tablet Take 1 mg by mouth as needed at bedtime. 1 to 2 mg PRN hydroCHLOROthiazide (HYDRODiuril) 25 MG tablet Take 25 mg by mouth in the morning. LaMICtal 100 MG tablet linaCLOtide (Linzess) 145 MCG capsule Take 145 mcg by mouth Daily Multiple Vitamin (Multi Vitamin) tablet 1 tablet Orally Once a day omeprazole (PriLOSEC) [address] capsule Take 20 mg by mouth in the morning. Take before meals. Ubrogepant (Ubrelvy) 100 MG tablet Take 1 tablet by mouth if needed (May repeat in 2 hours. Max of 2 tablets in 24 hours.) 10 tablet 5 No current facility-administered medications on file prior to visit. No Known Allergies Visit Vitals BP 85/60 Ht 5' 3 Wt 179 lb BMI 31.71 kg/m Smoking Status Never BSA 1.9 m documented in this encounter [facility] 05-30-2024 History of Present illness Narrative BOTOX PROCEDURE The patient was identified by name and date of . Botox has decreased the frequency and intensity of the migraine headaches. It was confirmed with the patient prior to Botox injections that the patient is not , has no infection or acute illness, has not received any of the antonella in the last 48 hours and does not have any procedures 48 hours after Botox injections. Risks and benefits of the procedure were discussed with the patient, opportunity for questions given. Betadine was used to prep the skin sites. Patient was injected with Botox 155 units, 45 units wasted. Dilution/Units 200 units 2:1 In 31 injection sites. In 7 specific head/neck muscle areas: 5 Units in Procerus. 10 Units in dietitian teaching bilaterally. 20 Units in Frontalis bilaterally. 40 Units in Temporalis bilaterally. 30 Units in Occipitalis bilaterally. 20 Units in Cervical Paraspinal bilaterally. 30 Units in Trapezius bilaterally. Units in the [place] bilaterally. The patient tolerated the procedure and had no adverse effects. The patient was given post procedure instruction including not putting pressure on the injection sites for 24 hours. Patient verbalized understanding. Current Outpatient Medications on File Prior to Visit Medication Sig Dispense Refill cetirizine (ZyrTEC) 5 MG tablet Take 10 mg by mouth Daily clonazePAM (KlonoPIN) 0.5 MG tablet Take 1 mg by mouth as needed at bedtime. 1 to 2 mg PRN hydroCHLOROthiazide (HYDRODiuril) 25 MG tablet Take 25 mg by mouth in the morning. LaMICtal 100 MG tablet linaCLOtide (Linzess) 145 MCG capsule Take 145 mcg by mouth Daily Multiple Vitamin (Multi Vitamin) tablet 1 tablet Orally Once a day omeprazole (PriLOSEC) [address] capsule Take 20 mg by mouth in the morning. Take before meals. No current facility-administered medications on file prior to visit. No Known Allergies Visit Vitals BP 100/62 Ht 5' 3 Wt 179 lb BMI 31.71 kg/m Smoking Status Never BSA 1.9 m Ubrelvy RX sent to [facility] documented in this encounter [facility] 05-16-2024 History of Present illness Narrative Patient was seen in consultation today on May 16, 2024 for a chief complaint of headaches. Patient is a pleasant, white, right handed female who complains of headaches beginning at age 28. Frequency- 2 x per month. Prior to Botox having daily migraine. She is due for Botox next month, her current provider is moving and she wishes to continue Botox treatments. Location-the pain is located Left retro orbital. Severity-generally the pain level is a 7/10. Duration-the migraine headaches last 8-12 hours. Onset to Peak-fast Descriptive Adjectives-pain is described as throbbing, pounding, tight. RISK FACTORS FOR PROGRESSION: Neck pain/tension- Positive. Nasal Pathology- Denies. Environmental Allergies- Denies. Insomnia- Positive. Medication Overuse- Denies. Time of Occurrence- Varies. Triggers- Stress, odors, loud noise, flashing lights. Associated Symptoms- Photophobia, phonophobia, nausea, exercise intolerance, mood change, decreased concentration. Impact of migraines on daily life- Moderate. Abortive medications tried includes: Imitrex, Nurtec ODT, Ubrelvy, Motrin, Maxalt, Tylenol, Benadryl. Preventative medications tried includes: Elavil, Depakote, Topamax, Prozac, Cymbalta, Ajovy. BP TOO LOW FOR BETA CELI Non Pharmacologic treatments tried includes: Rest. REVIEW OF SYSTEMS: Constitutional: Positive weight gain, fatigue. Eyes: Negative. HENT: Positive TMJ. CARDIOVASCULAR: Negative. RESPIRATORY: Negative. GASTRO INTESTINAL: Positive Constipation. : Positive PMS. MUSCULOSKELETAL: Positive back pain. SKIN: Positive Rash. Neuro: Negative. PSYCHIATRIC: Positive Anxiety, depression. ENDOCRINE: Negative. HEME/LYMPH: Negative. SLEEP: Positive Insomnia. Current Outpatient Medications on File Prior to Visit Medication Sig Dispense Refill cetirizine (ZyrTEC) 5 MG tablet Take 10 mg by mouth Daily clonazePAM (KlonoPIN) 0.5 MG tablet Take 1 mg by mouth as needed at bedtime. 1 to 2 mg PRN hydroCHLOROthiazide (HYDRODiuril) 25 MG tablet Take 25 mg by mouth in the morning. LaMICtal 100 MG tablet linaCLOtide (Linzess) 145 MCG capsule Take 145 mcg by mouth Daily Multiple Vitamin (Multi Vitamin) tablet 1 tablet Orally Once a day omeprazole (PriLOSEC) [address] capsule Take 20 mg by mouth in the morning. Take before meals. [DISCONTINUED] amphetamine-dextroamphetamine XR (Adderall XR) 15 MG 24 hr capsule Take 15 mg by mouth Daily as needed [DISCONTINUED] ARIPiprazole (Abilify) 5 MG tablet [DISCONTINUED] FLUoxetine (PROzac Weekly) [address] capsule Take 90 mg by mouth every 7 (seven) days. [DISCONTINUED] FLUoxetine (PROzac) 20 MG capsule Take 40 mg by mouth in the morning. Taking weekly dose. No current facility-administered medications on file prior to visit. No Known Allergies Visit Vitals BP 90/70 Ht 5' 3 Wt 179 lb BMI 31.71 kg/m Smoking Status Never BSA 1.9 m Past Medical History: Diagnosis Date Bipolar 1 disorder (CMS/HCC) Kidney stones Migraines (CMS/HCC) TMJ (temporomandibular joint disorder) PHYSICAL EXAMINATION Physical examination reveals a normal weight woman. The patient is awake, alert and oriented x3, in no apparent distress. Daxa appears and acts her stated age. Examination of the heart is normal. Normal rhythm. No murmurs, edema or venous stasis. The pulses are full and there are no carotid bruits. HEENT EXAM: Shows no post nasal drip, erythema, nasal congestion, deviation or sinus tenderness. The TMJ is non tender and shows no popping, clicking or decreased range of motion. There is no evidence of clenching and grinding. NEUROLOGIC EXAMINATION: Mental status and cognition are normal. The patient is awake, alert and oriented to person, place, time and situation. The patient is able to provide an accurate history in a succinct and chronological order, and has adequate fund of knowledge. Comprehension, speech and language are also normal, as are mood and affect. Judgement, insight, memory, attention and concentration are normal. CRANIAL NERVES: II- Visual cornejo are full. Funduscopic examination shows no papilledema, hemorrhages, or exudates, and the optic discs are normal in appearance. III/IV/- Extraocular movements are full without nystagmus and pupils respond briskly to light and accommodation, V- Facial sensation is normal to light touch and pin prick throughout. Muscles of mastication show full strength. VII- No facial weakness is present, the face is symmetric. VIII- Hearing is normal. IX/X- Normal, symmetric soft palate rise. XI- Sternocleidomastoid and trapezius power is full. XII- No tongue deviation. Deep tendon reflexes are 2+ throughout. Motor examination reveals normal tone, bulk, and strength throughout. No pronator drift is present and fast finger movements are quick and symmetric. Sensory examination reveals normal pin prick and light touch throughout. Coordination examination reveals normal finger to nose and heel to tejeda testing. Finger and foot tapping is normal. There is no ataxia. Muscle strength reflexes are normal and symmetrical throughout. The plantar responses are flexor. No pathological reflexes are present. Gait and station are normal. Musculoskeletal exam reveals tension in trapezius muscles bilaterally. PLAN OF CARE: Ubrelvy samples Botox documented in this encounter [facility] 02-29-2024 History of Present illness Narrative Images from the original note were not included. Procedure - Therapeutic injection, Botulinum Toxin, Chronic Migraine Indication Chronic Migraine Consent Patients full name and date of verified with patient prior to procedure. The procedure was explained to the patient. Informed consent for the procedure was obtained and risk associated with Botox treatments. Any further questions were answered during this visit. Site Prep The areas to be injected were sterilized with 70% isopropanol. Buy and Bill Lot # [id number] Expiration: 10/2025 Sodium Chloride Lot # [id number] Expiration: 12/24/2023 Dilution Per 100 units diluted with 1mL of 0.9% Sodium Chloride Procedure Procerus 5 units Form Stripper, L 5 units Form Stripper, R 5 units Frontalis, L 10 units (2 sites) Frontalis, R 10 units (2 sites) Temporalis, L 20 units (4 sites) Temporalis, R 20 units (4 sites) Occipitalis, L 15 units (3 sites) Occipitalis, R 15 units (3 sites) Paraspinalis cervicis, L 10 units (2 sites) Paraspinalis cervicis, R 10 units (2 sites) Trapezius, L 15 units (3 sites) Trapezius, R 15 units (3 sites) TOTAL UNITS INJECTED 155 WASTED 45 Disposition The patient tolerated the procedure well. Post-op care was discussed. The patient is aware that duration of action is 3 months, and that delay in reinjection often results in recurrence of migraines. Patient Care Instructions Do not rub massage or touch injection sites for 24 hours. Do not lay down for 4 hours after treatment. Avoid hot showers, exercise, and spicy foods for 24 hours to avoid bruising and minimize redness. Discussed signs and symptoms of anaphylaxis and when to seek emergent treatment. Procedure Codes 63971 Chemodenervation of Muscle Neck, Modifiers: 50 07474 Destroy Nerve, Face Muscle, Modifiers: 50 J0585 Botulinum toxin a per unit, Units: 200 Follow Up 3 months Botox documented in this encounter [facility] 12-29-2023 History of Present illness Narrative Images from the original note were not included. CHIEF COMPLAINT: migraines HISTORY OF PRESENT ILLNESS: 33 year old female to follow up on migraines via telemedicine visit, verbal consent obtained. Botox remains effective in decreasing frequency, intensity and duration of migraines. May get a couple of migraines prior to next botox, doing well, tolerates well. Denies further questions or concerns. Current Outpatient Medications on File Prior to Visit Medication Sig Dispense Refill amphetamine-dextroamphetamine XR (Adderall XR) 15 MG 24 hr capsule Take 15 mg by mouth Daily as needed ARIPiprazole (Abilify) 5 MG tablet cetirizine (ZyrTEC) 5 MG tablet Take 10 mg by mouth Daily clonazePAM (KlonoPIN) 0.5 MG tablet Take 1 mg by mouth as needed at bedtime. 1 to 2 mg PRN FLUoxetine (PROzac Weekly) [address] capsule Take 90 mg by mouth every 7 (seven) days. FLUoxetine (PROzac) 20 MG capsule Take 40 mg by mouth in the morning. Taking weekly dose. hydroCHLOROthiazide (HYDRODiuril) 25 MG tablet Take 25 mg by mouth in the morning. linaCLOtide (Linzess) 145 MCG capsule Take 145 mcg by mouth Daily Multiple Vitamin (Multi Vitamin) tablet 1 tablet Orally Once a day omeprazole (PriLOSEC) [address] capsule Take 20 mg by mouth in the morning. Take before meals. No current facility-administered medications on file prior to visit. Past Medical History: Diagnosis Date Bipolar 1 disorder (CMS/HCC) Kidney stones Migraines (CMS/HCC) TMJ (temporomandibular joint disorder) Past Surgical History: Procedure Laterality Date CYSTOSCOPY DILATION AND CURETTAGE 06/17/2020 GALLBLADDER OTHER SURGICAL HISTORY Urinary stents TONSILLECTOMY URINARY SURGERY urinary reflux had surgery when young Family History Problem Relation Name Age of Onset Heart disease Mother Colon cancer Mother No Known Problems Sister No Known Problems Brother No Known Problems Brother No Known Problems Brother Social History Tobacco Use Smoking status: Never Smokeless tobacco: Never Substance Use Topics Alcohol use: Yes Comment: 5 or 6 drinks on a typical day / 2 to 4 times a month ALLERGIES: Patient has no known allergies. REVIEW OF SYSTEMS: General: Appetite change: denies. Chills: denies. Fever: denies. Allergy/Immunology: Unusual rection to medications, food, animals or insects reaction: denies. Ophthalmologic: Visual acuity change: denies. ENT: Decreased hearing: denies. Endocrine: Weight loss: denies. Respiratory: Cough: denies. Wheezing: denies. Cardiovascular: Chest pain: denies. Palpitations: denies. Gastrointestinal: Abdominal pain: denies. Difficulty swallowing: denies Hematology: Bleeding problems: denies. Genitourinary: Painful urination: denies. Musculoskeletal: Joint pain: denies. Joint edema: denies. Skin: Rash: denies. Neurologic: Ataxia: denies, Tremor: denies. Psychiatric Anxiety: denies. Depression: denies. Insomnia: denies. Suicidal thoughts: denies. Also see HPI for elements of ROS documented therein and for details of positive findings, which shall supersede the foregoing. OBJECTIVE: Objective There were no vitals filed for this visit. There is no height or weight on file to calculate BMI. Examination: General Exam: pleasant, well nourished, well developed, in no acute distress Eyes: extraocular movement intact (EOMI) upper eyelids normal , lower eyelids normal Neurologic: nonfocal, alert and oriented, cognitive exam grossly normal, cranial nerves 2-12 grossly intact - Exam limited d/t telemedicine Psych: pleasant, cooperative, good eye contact , speech clear , judgement and insight good ASSESSMENT/PLAN: 1. Intractable chronic migraine without aura and without status migrainosus (CMS/HCC) Stable, continue botox every 3 months Pt has been fully educated on their diagnosis, treatment options, follow up plan, and return instructions. documented in this encounter [facility] 12-08-[address] - 12/08/2023 1:32 PM EDT Include breakfast, lunch and dinner, no skipped meals; if does not want breakfast at least have a protein drink. Aim for 30 grams protein in each meal When having grains, ensure whole grain, high fiber Follow the Plate Method at lunch and dinner: Use a 9 plate - 1/2 plate vegetables-non starchy such as green beans, greens, broccoli, cauliflower, etc (1 serving of fruit optional outside of plate) - 1/4 plate lean protein-primarily chicken, turkey fish, lean red 1-2 x per week at most (size of palm) - 1/4 plate whole grain or starchy vegetable such as corn, peas, potatoes, beans (size of fist, 1 cup) All meals and snacks at the dinner table; minimize distractions, no TV while eating. Make meals last at least 20 min, chew each bite of food 20 x per bite.Portion out all foods, never eat out of container. Become more mindful of meal: Enjoy flavors, textures etc. Use hunger/fullness scale. Include a snack during the night at work Ideally aim for 7-8 hours sleep Add in regular exercise, aim for 45 min three days per week, Look for [employer] videos Rec 1500 calories for weight loss documented in this encounter [facility] 12-08-2023 Note HNO ID: [id number] Author: MELY VIGIL RD Service: ? Author Type: Registered Dietitian Type: Progress Notes Filed: 12/08/2023 13:40 Note Text: [facility] Nutrition Therapy: Virtual Consult - Initial Assessment I have communicated my name and active licensure. The patient?s identity and physical location were verified at the time of this visit. Either the patient or their legal national account representative has been informed of the risks and benefits of -- and alternatives to -- treatment through a remote evaluation and consents to proceed with the evaluation remotely. Nutrition Diagnosis: Overweight/obesity, related to, physical inactivity, as evidenced by BMI above normative standard for age and gender. RECOMMENDED MALNUTRITION DIAGNOSIS: NO MALNUTRITION IDENTIFIED NUTRITION CARE PLAN Nutrition Intervention 12/08/2023: modify type and amount of food or beverage Include breakfast, lunch and dinner, no skipped meals; if does not want breakfast at least have a protein drink. Aim for 30 grams protein in each meal When having grains, ensure whole grain, high fiber Follow the Plate Method at lunch and dinner: Use a 9 plate - 1/2 plate vegetables-non starchy such as green beans, greens, broccoli, cauliflower, etc (1 serving of fruit optional outside of plate) - 1/4 plate lean protein-primarily chicken, turkey fish, lean red 1-2 x per week at most (size of palm) - 1/4 plate whole grain or starchy vegetable such as corn, peas, potatoes, beans (size of fist, 1 cup) All meals and snacks at the dinner table; minimize distractions, no TV while eating. Make meals last at least 20 min, chew each bite of food 20 x per bite.Portion out all foods, never eat out of container. Become more mindful of meal: Enjoy flavors, textures etc. Use hunger/fullness scale. Include a snack during the night at work Ideally aim for 7-8 hours sleep Add in regular exercise, aim for 45 min three days per week, Look for [employer] videos Rec 1500 calories for weight loss Nutrition Monitoring AND Evaluation: 1-2 lb weight loss per week Need for Follow up: 4-6 weeks Patient presents for initial MNT as relates to class 1 obesity Body mass index is 32.95 kg/m?. Had lost weight to 160lb after having daughter, gained after mom's illness and passing, depression, anxiety. Has an ideal goal of 130-140 lbs. States has always been thin, limit weight loss attempts, had success once with cutting on refined grains. Recently did lose 10 lbs over two weeks limited intake and increased exercise. Tends to restrict excessively, current intake noted for low in protein and calories even with excess snacking in evening when not working. Is active on daily basis but no additional exercise. Patient's symptoms are: Weight Concerns: weight gain and failure to lose weight Diet History: Breakfast - -- cereal, life, cheerios, frosted flakes 2%; pancakes, waffles, fruit Snack - no Lunch - skip; may have raw veggies Snack - no Dinner - 6:30 white rice, veg and protein (chicken, ground beef); outshine; water Snack - when home can be very hungry: frozen ramen noodle bowl, veg spring rolls, If working dinner at home no snack, does not eat at work Beverages - water Alcohol- no Vitamins/Supplements - see medlist Does not usually eat meat Activity: Activities of Daily Living: Active 75% of the day. (On feet for most of the day, i.e. 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 Resting Metabolic Rate: 1509 Malnutrition Screening Significant unintentional weight loss? No Eating less than 75% of usual intake for more than 2 weeks? No Potential Signs of Inflammation: no identifiable sources Education Materials Provided: Healthy Lunch/Dinner Plate, Lean Protein Foods, and Snack Ideas READINESS TO LEARN Cognitive ability: Alert and oriented Motivation to learn: Interested Family support: Unable to assess - Family not present Instruction provided to: Patient Patient learns best by: Individual Instruction Factors affecting learning: None Physical limitations affecting learning: None Referred by: Frederic BROWER Billing Type: Initial Assess/15 min 3 units SIGNATURE: Mely Vigil RD PATIENT NAME: Daxa Dunlaplavon DATE: 12/08/2023 TIME: 1:00 PM [facility] 12-08-2023 History of Present illness Narrative [facility] Nutrition Therapy: Virtual Consult - Initial Assessment I have communicated my name and active licensure. The patient s identity and physical location were verified at the time of this visit. Either the patient or their legal national account representative has been informed of the risks and benefits of -- and alternatives to -- treatment through a remote evaluation and consents to proceed with the evaluation remotely. Nutrition Diagnosis: Overweight/obesity, related to, physical inactivity, as evidenced by BMI above normative standard for age and gender. RECOMMENDED MALNUTRITION DIAGNOSIS: NO MALNUTRITION IDENTIFIED NUTRITION CARE PLAN Nutrition Intervention 12/08/2023: modify type and amount of food or beverage Include breakfast, lunch and dinner, no skipped meals; if does not want breakfast at least have a protein drink. Aim for 30 grams protein in each meal When having grains, ensure whole grain, high fiber Follow the Plate Method at lunch and dinner: Use a 9 plate - 1/2 plate vegetables-non starchy such as green beans, greens, broccoli, cauliflower, etc (1 serving of fruit optional outside of plate) - 1/4 plate lean protein-primarily chicken, turkey fish, lean red 1-2 x per week at most (size of palm) - 1/4 plate whole grain or starchy vegetable such as corn, peas, potatoes, beans (size of fist, 1 cup) All meals and snacks at the dinner table; minimize distractions, no TV while eating. Make meals last at least 20 min, chew each bite of food 20 x per bite.Portion out all foods, never eat out of container. Become more mindful of meal: Enjoy flavors, textures etc. Use hunger/fullness scale. Include a snack during the night at work Ideally aim for 7-8 hours sleep Add in regular exercise, aim for 45 min three days per week, Look for [email or web address] videos Rec 1500 calories for weight loss Nutrition Monitoring & Evaluation: 1-2 lb weight loss per week Need for Follow up: 4-6 weeks Patient presents for initial MNT as relates to class 1 obesity Body mass index is 32.95 kg/m . Had lost weight to 160lb after having daughter, gained after mom's illness and passing, depression, anxiety. Has an ideal goal of 130-140 lbs. States has always been thin, limit weight loss attempts, had success once with cutting on refined grains. Recently did lose 10 lbs over two weeks limited intake and increased exercise. Tends to restrict excessively, current intake noted for low in protein and calories even with excess snacking in evening when not working. Is active on daily basis but no additional exercise. Patient's symptoms are: Weight Concerns: weight gain and failure to lose weight Diet History: Breakfast - -9- cereal, life, cheerios, frosted flakes 2%; pancakes, waffles, fruit Snack - no Lunch - skip; may have raw veggies Snack - no Dinner - 6:30 white rice, veg and protein (chicken, ground beef); outshine; water Snack - when home can be very hungry: frozen ramen noodle bowl, veg spring rolls, If working dinner at home no snack, does not eat at work Beverages - water Alcohol- no Vitamins/Supplements - see medlist Does not usually eat meat Activity: Activities of Daily Living: Active 75% of the day. (On feet for most of the day, i.e. 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 Resting Metabolic Rate: 1509 Malnutrition Screening Significant unintentional weight loss? No Eating less than 75% of usual intake for more than 2 weeks? No Potential Signs of Inflammation: no identifiable sources Education Materials Provided: Healthy Lunch/Dinner Plate, Lean Protein Foods, and Snack Ideas READINESS TO LEARN Cognitive ability: Alert and oriented Motivation to learn: Interested Family support: Unable to assess - Family not present Instruction provided to: Patient Patient learns best by: Individual Instruction Factors affecting learning: None Physical limitations affecting learning: None Referred by: Frederic BROWER Billing Type: Initial Assess/15 min 3 units SIGNATURE: Mely Vigil RD PATIENT NAME: Daxa Holguin Liliana DATE: 12/08/2023 TIME: 1:00 PM documented in this encounter [facility] 08-25-2023 History of Present illness Narrative Subjective Daxa Alvarado is a 33 y.o. female who presents for the following: Skin Check Review of Systems: No other skin or systemic complaints other than what is documented elsewhere in the note. The following portions of the chart were reviewed this encounter and updated as appropriate: Allergies Skin Cancer History No skin cancer on file. Specialty Problems None Objective Well appearing patient in no apparent distress; mood and affect are within normal limits. A focused skin examination was performed. All findings within normal limits unless otherwise noted below. Assessment/Plan 1. Skin cancer screening The patient presented for a routine skin examination today. There are no specific concerns regarding skin health and no new or changing moles, lesions, or rashes. Assessment: Based on the comprehensive skin examination, there were no concerning or abnormal findings. The patient's skin appeared to be in good health, without any notable dermatologic conditions or lesions. Plan: Given the absence of any significant skin findings, no specific interventions or treatments are warranted at this time. The patient was educated on the importance of regular skin self-examinations and advised to promptly report any changes or concerns. Routine follow-up for a skin examination was recommended. -These lesions have benign, reassuring patterns on dermoscopy. -There were no concerning features found on exam today. -Recommend continued self-observation, and to contact the office if any changes in nevi are noticed. Discussed/information given on safe sun practices and use of sunscreen, sun protective clothing or sun avoidance. Recommend to use OTC medication of sunscreen SPF 30 or higher on a daily basis prior to sun exposure to reduce the risk of skin cancer. Contact Office if: Any lesions change in size, shape or color; itch, bum or bleed. 2. Nevus Multiple benign appearing flesh colored to pigmented macules and papules Plan: Counseling. I counseled the patient regarding the following: Instructions: Monthly self-skin checks to monitor for any changes in moles are recommended. Expectations: Benign Nevi are pigmented nests of cells within the skin.No treatment is necessary. Contact Office if: Any moles change in size, shape or color; itch, bum or bleed. 3. Skin tag (2) Generalized, Left Medial Thigh Fleshy, skin-colored sessile and pedunculated papules. Destr of lesion - Generalized, Left Medial Thigh Complexity: simple Destruction method: cryotherapy 4. Dermatofibroma Right Shoulder - Anterior Firm pink-brown papule that dimples with lateral pressure. Dermatofibromas, or histiocytomas, are common noncancerous (benign) skin growths. They are firm to hard, and they are skin-colored or slightly pigmented. Dermatofibromas can be tender. These lesions usually persist for life, and they may heal as depressed scars after several years. Dermatofibromas are most often found on the arms and legs of women. They generally do not change in size. PLAN: Reassured patient that the lesion(s) are benign. No treatment is necessary. 5. Eczema, unspecified type Left Foot - Anterior Plan: Counseling. I counseled the patient regarding the following: Skin care: Patient should bathe using lukewarm water with a mild cleanser and moisturize immediately after. Emollients should be applied at least 2-3 times daily. Avoid scented detergents or fabric softeners. Keep fingernai ls short. Avoid excessive hand washing. Expectations : The patient is aware that eczema is chronic in nature and can improve with moisturizers and topical steroids and worsen with stress, scented soaps, detergents, scratching, dry skin, changes in weather and skin infections. Contact office if: Eczema worsens or fails to improve despite several weeks of treatment; patient develops skin infections (such as:yellow honey colored crusts or cold sores). PLAN: Can intermittently use triamcinolone 0.1% cream twice daily as needed triamcinolone (Kenalog) 0.1 % cream - Left Foot - Anterior Apply topically 2 times a day as needed for rash. documented in this encounter [facility] Work Phone: 06-06-2023 History of Present illness Narrative Patient ID: Daxa Alvarado is a 33 y.o. female. Procedures Procedure - Therapeutic injection, Botulinum Toxin, Chronic Migraine Indication Chronic Migraine Consent The procedure was explained to the patient. Informed consent for the procedure was obtained and risk associated with Botox treatments. Any further questions were answered during this visit. Site Prep The areas to be injected were sterilized with 70% isopropanol. Buy and Bill- Botox 200U Lot # [id number] Expiration:09/2025 Sodium Chloride Lot #[id number] Expiration: 08/23/2023 Dilution Per 100 units diluted with 1mL of 0.9% Sodium Chloride Procedure Procerus 5 units Form Stripper, L 5 units Form Stripper, R 5 units Frontalis, L 10 units (2 sites) Frontalis, R 10 units (2 sites) Temporalis, L 20 units (4 sites) Temporalis, R 20 units (4 sites) Occipitalis, L 15 units (3 sites) Occipitalis, R 15 units (3 sites) Paraspinalis cervicis, L 10 units (2 sites) Paraspinalis cervicis, R 10 units (2 sites) Trapezius, L 15 units (3 sites) Trapezius, R 15 units (3 sites) TOTAL UNITS INJECTED 155 WASTED 45 Disposition The patient tolerated the procedure well. Post-op care was discussed. The patient is aware that duration of action is 3 months, and that delay in reinjection often results in recurrence of migraines. Patient Care Instructions Do not rub massage or touch injection sites for 24 hours. Do not lay down for 4 hours after treatment. Avoid hot showers, exercise, and spicy foods for 24 hours to avoid bruising and minimize redness. Discussed signs and symptoms of anaphylaxis and when to seek emergent treatment. Procedure Codes 57073 Chemodenervation of Muscle Neck, Modifiers: 50 65185 Destroy Nerve, Face Muscle, Modifiers: 50 J0585 Botulinum toxin a per unit, Units: 200 Follow Up 3 months Botox Samples the [facility] two boxes [id number] exp 2024-11 documented in this encounter [facility] Healthcare Evaluation note N/A Dept. of Dermato logy Evaluation note Diagnosis Onset Date Wellness examination [facility] Work Phone: Evaluation note* Diagnosis Intractable chronic migraine without aura and without status migrainosus (CMS/HCC)- Primary documented in this encounter [facility] HealthcareEvaluation note* Diagnosis Onset Date Resolution Status Left otitis media acute Maxillary sinusitis, acute a cute Brain fog acute Diarrhea acute Dizziness acute Frequent headaches acute Serotonin syndrome acute Sweating abnormality [facility] Work Phone: Evaluation note* Diagnosis Skin cancer screening- Primary Screening for malignant neoplasm of the skin Nevus Benign neoplasm of skin, site unspecified Skin tag Unspecified hypertrophic and atrophic condition of skin Dermatofibroma Benign neoplasm of skin, site unspecified Eczema, unspecified type documented in this encounter [facility] Work Phone: Evaluation note* Diagnosis Obesity, Class I, BMI 30-34.9- Primary Obesity, unspecified Dietary counseling Dietary surveillance and counseling [facility] Diagnosis Intractable chronic migraine without aura and without status migrainosus (CMS/HCC)- [facility] Int[facility] chronic migraine without aura and without status migrainosus (CMS/HCC)- [facility] Intractable chronic migraine without aura and without status migrainosus (CMS/HCC)- Primary Cervicalgia Orofacial dyskinesia Nausea Nausea alone [facility] Intractable chronic migraine without aura and without status migrainosus (CMS/HCC)- [facility] Intractable chronic migraine without aura and without status migrainosus (CMS/HCC)- Primary [facility] Chronic migraine without aura, intractable, without status migrainosus- Primary documented in this encounter [facility] Work Phone: Evaluation note* Diagnosis Chronic migraine without aura, intractable, without status migrainosus- Primary documented in this encounter [facility] Work Phone: History of Present illness Narrative* Darlene Schafer Donaldo, NARCISO-UM RN - 11/28/2024 2:00 PM EDTAssociated Order(s): Botulinum Injection - Head/Face/Jaw Pre-Procedure Diagnose(s): Chronic migraine without aura, intractable, without status migrainosus Post-Procedure Diagnose(s): Chronic migraine without aura, intractable, without status migrainosus Patient ID: Daxa Alvarado is a 34 y.o. female. Botulinum Injection - Head/Face/Jaw Date/Time: 11/28/2024 1:28 PM Performed by: KAMI Blankenship Authorized by: KAMI Blankenship Consent: Consent obtained: Verbal (Verified patient has not received Botox from any other healthcare provider or aquaculturist in the past 90 days.) Consent given by: Patient Procedural risks discussed: Risks of PREEMPT Botox include injection site reaction, pain at the injection site, ptosis (drooping eyelid). Alternatives discussed: No treatment [place] protocol: Relevant documents present and verified: Yes Site/side verified: Yes Immediately prior to procedure a time out was called: Yes Patient identity confirmed: Verbally with patient Procedure details: EMG used? No Electrical stimulation used? No Diluted by: Preservative free saline Total units available: 200 Right frontalis: 10 units divided amongst 2 site(s) Left frontalis: 10 units divided amongst 2 site(s) Right dietitian teaching: 5 units divided amongst 1 site(s) Left dietitian teaching: 5 units divided amongst 1 site(s) Procerus (midline): 5 units divided amongst 1 site(s) Right occipitalis: 15 units divided amongst 3 site(s) Left occipitalis: 15 units divided amongst 3 site(s) Right cervical paraspinal: 10 units divided amongst 2 site(s) Left cervical paraspinal: 10 units divided amongst 2 site(s) Right trapezius: 15 units divided amongst 3 site(s) Left trapezius: 15 units divided amongst 3 site(s) Right temporalis: 20 units divided amongst 4 site(s) Left temporalis: 20 units divided amongst 4 site(s) Total units injected: 155 Total units wasted: 45 Post-procedure details: Patient tolerance of procedure: Tolerated well, no immediate complications Comments: You had Botox injections for migraine prevention today: Please do not rub injection sites for 24 hours. Avoid pressure above eyebrows for 24 hours, including massage; use of helmets, headlamps, headbands, or goggles. If there is discomfort, ice for 20 minutes at a time for the first 24 hours. After 24 hours, you many use heat for discomfort (please limit to 15-20 minutes). Headaches may worsen, or you may experience neck stiffness. If this occurs use your usual headache medication or a mild anti inflammatory such as Advil or Aleve. Please call if you have difficulty swallowing. [facility] Reason for referral (narrative)* Name Reason for referral NA NA Dept. of Dermatology Summary Purpose Family History No Family History Records Found Relationship Condition Age at Onset Recorded Date/T trey mother Malignant neoplasm of colon Unknown Malignant neoplasm Unknown Advance Directives No Advanced Directives Records FoundNo Advanced Directives Records FoundNo Advanced Directives Records FoundNo Advanced Directives Records FoundNo Advanced Directives Records FoundNo Advanced Directives Records FoundNo Advanced Directives Records FoundNo Advanced Directives Records FoundNo Advanced Directives Records FoundNo Advanced Directives Records Found Chief Complaint and Reason for Visit Chief Complaint Annual wellness PE Reason for Visit Wellness examination Chief Complaint Sinus/Cough Nausea/vomiting X1 Month/back pain Reason for Visit Left otitis media Maxillary sinusitis, acute Brain fog Diarrhea Dizziness Frequent headaches Serotonin syndrome Sweating abnormality Additional Source Comments INFORMATION SOURCE (unrecogn ized section and content) DATE CREATED AUTHOR 08/23/2018 [facility] DATE CREATED AUTHOR AUTHOR'S ORGANIZ ATION 05/29/2020 [employer] DATE CREATED AUTHOR AUTHOR'S ORGANIZ ATION 07/19/2021 [facility] DATE CREATED AUTHOR AUTHOR'S ORGANIZ ATION 08/26/2021 [facility] DATE CREATED AUTHOR AUTHOR'S ORGANIZ ATION 11/04/2022 [facility] DATE CREATED AUTHOR AUTHOR'S ORGANIZ ATION 12/10/2023 [facility] DATE CREATED AUTHOR AUTHOR'S ORGANIZ ATION 06/09/2024 [facility] DATE CREATED AUTHOR AUTHOR'S ORGANIZ ATION 08/31/2024 [facility] EPIC DATE CREATED AUTHOR AUTHOR'S ORGANIZ ATION 11/15/2024 [facility] DATE CREATED AUTHOR AUTHOR'S ORGANIZ ATION 12/01/2024 [facility] [employer] Teams (unrecognized sec tion and content) Team Status: Inactive Member Role Status Dates Jenny Bergeron ENVIRONMENTAL AUDITOR, ENVIRONMENTAL AUDITOR-C Attending Provider Active Team Status: Active Member Role Status Dates Jenny Bergeron NP, ENVIRONMENTAL AUDITOR-C Primary Care Provider Active Team Status: Inactive Member Role Status Dates Jenny Bergeron ENVIRONMENTAL AUDITOR, ENVIRONMENTAL AUDITOR-C Primary Care Provider, Attend ing Provider Active Porcelain Finish Sprayer Relationship Specialty Start Date End Date Demetrius Sands MD [address] [facility], [address] [place] [address] PCP - General 05/28/19 Porcelain Finish Sprayer Relationship Specialty Start Date End Date Jenny Bergeron, GLOVE PARTS INSPECTOR.MASHA [address] [facility] [address] [place] [address] Family Medicine 11/07/23 Porcelain Finish Sprayer Relationship Specialty Start Date End Date Unallocated, Elba Toussaint MD [address] [place] [id number] PCP - General Family Medicine 05/16/24 Jenny Bergeron NP [address] [place] [address] Referring Physician Family Medicine 05/16/24 Porcelain Finish Sprayer Relationship Specialty Start Date End Date Unallocated, Elba Toussaint MD [address] [place] [id number] PCP - General Family Medicine 05/16/24 Jenny Bergeron NP [address] [place] [address] Referring Physician Family Medicine 05/16/24 Porcelain Finish Sprayer Relationship Specialty Start Date End Date Unallocated, [facility] [place] [address] PCP - General Family Medicine 05/16/24 Jenny Bergeron NP [address] [place] [address] Referring Physician Family Medicine 05/16/24 Porcelain Finish Sprayer Relationship Specialty Start Date End Date Unallocated, Elba Toussaint MD [address] [place] [address] PCP - General Family Medicine 05/16/24 Jenny Bergeron NP [address] [place], [place] [id number] Referring Physician Family Medicine 05/16/24 Porcelain Finish Sprayer Relationship Specialty Start Date End Date Unallocated, Elba Toussaint MD [address] [place] [address] PCP - General Family Medicine 05/16/24 Jenny Bergeron NP [address] [place] [address] Referring Physician Family Medicine 05/16/24 Porcelain Finish Sprayer Relationship Specialty Start Date End Date Demetrius Sands MD [address] [facility], [facility] [address] [place] [address] PCP - General 05/28/19 Porcelain Finish Sprayer Relationship Specialty Start Date End Date Demetrius Sands MD [address] [facility], [facility] [address] [place] [address] PCP - General 05/28/19 Goals (unrecognized section and content) Goals may be documented in a n alternate sectionGoals may be documented in an alternate section Reason for Visit (unrecogniz ed section and content) Reason Comments Follow-up Specialty Diagnoses / Procedures Referred By Karol t Referred To Contact Neurology Diagnoses Chronic migraine without aura, intractable, without status migrainosus (CMS/HCC) Procedures WI INJECTION,ONABOTULINUMTOXIN A Frida Hopson, ENVIRONMENTAL AUDITOR [address] [address] Phone: tel: fax: Frida Hopson, ENVIRONMENTAL AUDITOR [address] [facility] [address] [place] [address] Phone: tel: fax: Referral ID Status Reason Start Date Expiration Date V isits Requested Visits Authorized [id number] Authorized Other 05/20/2024 05/20/2025 5 5 Reason Comments Botulinum Toxin Injection Specialty Diagnoses / Procedures Referred By Contac t Referred To Contact Neurology Diagnoses Chronic migraine without aura, intractable, without status migrainosus (CMS/[facility]) Procedures WI INJECTION,ONABOTULINUMTOXINA WI CHEMODNRVTJ MUSC MUSC INNERVATED FACIAL NRV UNIL WI CHEMODENERVATION MUSCLE NECK UNILAT FOR DYSTONIA Jerzy Hahn MD [address] [place] [address] Phone: tel: fax: [facility]O [address] [place] [address] Phone: tel: fax: Referral ID Status Reason Start Date Expiration Date V isits Requested Visits Authorized [id number] Closed Other 03/03/2023 03/01/2024 5 5 Reason Comments Assessment Patient Education Reason Comments Consult Has been getting bot ox with Dr. Hahn for about 5 years. Reason Comments Botulinum Toxin Injection 2 migraines si nce last treatment. Reason Comments Migraine Headache Would like to contin ue botox Reason Comments Botulinum Toxin Injection Specialty Diagnoses / Procedures Referred By Contac t Referred To Contact Diagnoses Chronic migraine without aura, intractable, without status migrainosus Darlene Carmen, GLOVE PARTS INSPECTOR-UM RN [address] [facility] [address] [place] [address] Phone: tel: fax: Referral ID Status Reason Start Date Expiration Date V isits Requested Visits Authorized [id number] Pending Review 11/28/2024 11/28/2025 1 1 Source Comments (unrecognize d section and content) In the event this informatio n is protected by the Federal Confidentiality of Alcohol and Drug Abuse Patient Records regulations: The Federal rules restrict any use of the information to criminally investigate or prosecute any alcohol or drug abuse patient.[facility] FOR RECORDS PERTAINING TO PATIENTS WHO ARE OR HAVE BEEN ENROLLED IN A CHEMICAL DEPENDENCY/SUBSTANCEABUSE PROGRAM, SOME INFORMATION MAY BE OMITTED. This clinical summary was aggregated from multiple sources. Caution should be exercised in using it in the provision of clinical care. This summary normalizes information from multiple sources, and as a consequence, information in this document may materially change the coding, format and clinical context of patient data. In addition, data may be omitted in some cases. CLINICAL DECISIONS SHOULD BE BASED ON THE PRIMARY CLINICAL RECORDS. [facility]. provides no warranty or guarantee of the accuracy or completeness of information in this document.
[2024-12-16 23:05] LABS: AST(SGOT) 24 U/L (<=31); Alanine Aminotransfer ALT/SGPT 22 U/L (<=34); Albumin, Serum 4.4 g/dL (3.5-5.0); Alkaline Phosphatase 77 U/L (35-104); Anion Gap 12 (5-15); BUN 12 mg/dL (4-19); BUN/Creat Ratio 18.2 RATIO (10-20); Calcium,Total 10.0 mg/dL (7.6-11.0); Carbon Dioxide 26.4 mmol/L (21.0-32.0); Chloride 101 mmol/L (98-108); Globulin 2.7 g/dL (2.2-4.2); Glucose 101 mg/dL (70-99); Potassium 4.0 mmol/L (3.3-5.1)
[2024-12-16 23:09] LABS: Cholesterol 242 mg/dL (<=200); Low Density Lipoprotein Calc. 151 mg/dL; Triglycerides 204 mg/dL; Very Low Density Lipoprotein 41 mg/dL (5-40); cholesterol:hdl ratio screen 4.83
== END | disposition home or self-care (01) ==
LOC: LABSPEC 22:20
PROVIDERS: PCP Nurse Practitioner; Visit Provider Nurse Practitioner
DX: E78.5 Hyperlipidemia, unspecified (principal)
CPT/HCPCS: 80053; 80061